=== PATIENT | female | born 1935 | race Caucasian/White ===

== ENCOUNTER 2018-04-11 11:54 | Outpatient (CLI) | payer MEDICARE, SELFPAY ==
[2018-04-11 13:33] LABS: CREATININE 0.87 mg/dL (0.55-1.02); Potassium 4.4 mmol/L (3.5-5.1)
== END 2018-04-11 12:14 ==
PROVIDERS: PCP Family Medicine; Visit Provider Family Medicine
DX: I10 Essential (primary) hypertension (principal); M25.552 Pain in left hip
CPT/HCPCS: 82565; 84132

== ENCOUNTER 2018-04-23 01:33 | Outpatient (CLI) | payer MEDICARE, SELFPAY ==
--- NOTE | 2018-04-23 09:44 | DI.RAD_ITS ---
SYMPTOMS/DIAGNOSIS: LT HIP PAIN, M25.552 LEFT HIP AND PELVIS: There is moderate left hip joint space narrowing, greatest medially and inferiorly. There is prominent periarticular spurring, greater from the femoral head. Moderate degenerative changes are seen of the right hip. IMPRESSION: Degenerative changes of both hips, left greater than right.
== END 2018-04-23 01:53 ==
PROVIDERS: PCP Family Medicine; Visit Provider Family Medicine
DX: M25.552 Pain in left hip (principal); M16.0 Bilateral primary osteoarthritis of hip
CPT/HCPCS: 73502

== ENCOUNTER 2020-01-01 03:34 | Outpatient (CLI) | payer MEDICARE, SELFPAY ==
[2020-01-01 10:54] LABS: CREATININE 0.85 mg/dL (0.55-1.02); Potassium 4.1 mmol/L (3.5-5.1)
== END 2020-01-01 03:54 ==
PROVIDERS: PCP Family Medicine; Visit Provider Family Medicine
DX: I10 Essential (primary) hypertension (principal)
CPT/HCPCS: 36415; 82565; 84132

== ENCOUNTER 2020-05-04 03:03 | Outpatient (CLI) | payer MEDICARE, SELFPAY ==
[2020-05-04 09:15] LABS: Calculated LDL 41 mg/dL (<100); Cholesterol 114 mg/dL (<200); HDL Cholesterol 60 mg/dL (40-60); Triglyceride 65 mg/dL (<150)
== END 2020-05-04 03:23 ==
PROVIDERS: PCP Family Medicine; Visit Provider Family Medicine
DX: E78.5 Hyperlipidemia, unspecified (principal)
CPT/HCPCS: 36415; 80061

== ENCOUNTER 2021-02-02 04:45 | Outpatient (CLI) | payer MEDICARE, SELFPAY ==
[2021-02-02 11:06] LABS: CREATININE 1.1 mg/dL (0.55-1.02); Calculated LDL 34 mg/dL (<100); Cholesterol 111 mg/dL (<200); Estimated GFR 47.43 (mL/min/1.73m2); HDL Cholesterol 58 mg/dL (40-60); Potassium 4.2 mmol/L (3.5-5.1); Triglyceride 95 mg/dL (<150)
== END 2021-02-02 04:46 | disposition home or self-care (01) ==
LOC: LBO 04:45
PROVIDERS: PCP Family Medicine; Visit Provider Family Medicine
DX: I10 Essential (primary) hypertension (principal); E78.5 Hyperlipidemia, unspecified; E11.65 Type 2 diabetes mellitus with hyperglycemia
CPT/HCPCS: 36415; 80061; 82565; 84132

== ENCOUNTER 2021-05-13 13:06 | Outpatient (CLI) | payer MEDICARE, SELFPAY ==
--- NOTE | 2021-05-13 13:00 | RT.EKG_ITS ---
APPROVED REPORT Exam: Resting ECG Reason for Exam: CAD Patient Location: O HR:75 bpm ECG Measurements Heart Rate 75 AXIS CO 189 P 61 QRSd 88 QRS -59 QT 392 T 58 QTc 438 Conclusion Sinus rhythm...normal P axis, V-rate 50- 99 Left anterior fascicular block...axis(240,-40),
== END 2021-05-13 13:07 | disposition home or self-care (01) ==
LOC: DI.CARD 13:06
PROVIDERS: PCP Family Medicine; Visit Provider Internal Medicine Cardiovascular Disease
DX: I25.10 Atherosclerotic heart disease of native coronary artery without angina pectoris (principal); I44.4 Left anterior fascicular block
CPT/HCPCS: 93010

== ENCOUNTER → 2021-05-13 13:55 | Outpatient (BNVA) | payer MEDICARE, SELFPAY | PROVIDERS: PCP Family Medicine; Referring Provider Family Medicine; Visit Provider Internal Medicine Cardiovascular Disease | DX: I25.10 Atherosclerotic heart disease of native coronary artery without angina pectoris (principal); Z95.1 Presence of aortocoronary bypass graft; Z95.2 Presence of prosthetic heart valve; I10 Essential (primary) hypertension; I77.810 Thoracic aortic ectasia | CPT/HCPCS: 93005; 99203 ==

== ENCOUNTER 2021-06-11 01:46 | Outpatient (CLI) | payer MEDICARE, SELFPAY ==
--- NOTE | 2021-06-11 10:32 | DI.US_ITS ---
APPROVED REPORT EXAM: Comprehensive 2D, Doppler, and color-flow Echocardiogram Patient Location: Out-Patient Highway Patrol Officer: Celia Serrato RDCS (AE) Indications: Bioprosthetic aortic valve replacement, CAD, Dilated ascending aorta Other Information Study Quality: Adequate Conclusion Normal left ventricular wall thickness and chamber size. Estimated ejection fraction is 60 to 65%. Wall motion is normal Normal right ventricular size and systolic function Both atria are moderately dilated There is a bioprosthetic aortic valve replacement there is mild to moderate aortic regurgitation. Th ere is mild aortic stenosis. Mean gradient is 19 mmHg, calculated aortic valve area 1.23 cm?? Mild mitral annular calcification. Mild mitral regurgitation Normal tricuspid valve with moderate regurgitation. Estimated right ventricular systolic pressure is 31 mmHg Dilated ascending aorta measuring 4.36 cm Wall motion Left Ventricle The left ventricle is normal size. The left ventricular systolic function is normal. The left ventric ular ejection fraction is within the normal range. There is normal left ventricular wall thickness. T here is normal LV segmental wall motion. There is no ventricular septal defect visualized. LVEF is 62 %. Right Ventricle The right ventricle is normal size. The right ventricular systolic function is normal. The RVSP is 30 .9mmHg. Atria Left atrium is moderately dilated. Right atrium is moderately dilated. The interatrial septum is inta ct with no evidence for an atrial septal defect. Aortic Valve Peak aortic valve gradient is 34.0mmHg. Highest mean aortic valve gradient is 19.4mmHg. Calculated AV A by the continuity equation is 1.15cm2. Mild to moderate aortic regurgitation. Bioprosthetic aortic valve is present. Mitral Valve Mild mitral annular calcification. No evidence of mitral valve stenosis. Mild mitral regurgitation. Tricuspid Valve The tricuspid valve is normal in structure. There is no tricuspid valve stenosis. Moderate tricuspid regurgitation. Pulmonic Valve The pulmonary valve is normal in structure. There is no pulmonic valvular stenosis. Trace pulmonic re gurgitation. Great Vessels The aortic root is normal in size. The ascending aorta is severely dilated.4.36 cm Aortic arch is nor mal in caliber. IVC is normal in size and collapses >50% with inspiration. Pericardium There is no pericardial effusion. 2D Dimensions IVSD d PLAX 0.92 cm F: 0.6-1.0 LV Vol A2C d MOD 113.2 mL LVPW d PLAX 0.92 cm F: 0.6 - 1.0 LV Vol A4C d MOD 98.0 mL LVID d PLAX 4.42 cm F: 3.8 - 5.2 LA vol/ BSA A2C s A-L 50.6 mL/m2 LVDs 2.85 cm F: 2.2 - 3.5 LA vol/ BSA A4C s A-L 24.7 mL/m2 Ao Root d 3.05 cm F: 2.7 - 3.3 LA Vol/ BSA Biplane s A-L 35.6 mL/m2 RA Area A4C 15.96 cm2 LA Area A4C s MOD 17.39 cm2 RA Vol/ BSA A4C s A-L 24.0 mL/m2 LA Area A2C s MOD 24.74 cm2 Ao Asc Diam d 4.36 cm F: 2.3 - 3.1 LV EF A4C MOD 63.4 % LV EF Teichholz 63.9 % LV EF A2C MOD 61.3 % LVEF (Thomas's) 62.69 % F: 54 - 74 LV EF Biplane MOD 62.7 % LV Volume 83.02 mL F: 46 - 106 SV 66.78 mL LV Volume Index 46.37 mL/m2 F: 29 - 61 SV Index 37.32 mL/m2 LV Vol Biplane MOD 106.5 mL FS 34.55 % M-Mode TAPSE 2.25 cm (M/F) >1.7 LV Diastology MV E' medial 0.061 (>0.07 m/s) E/A Ratio 1.1 LV E/e MED 11.60 (<14) MV E Vmax 0.71 (0.4-1.3 m/s) MV E' lateral 0.073 (>0.1 m/s) MV A Vmax 0.65 (0.4-1.3 m/s) LV E/e LAT 9.60 (<14) MV E/A Ratio 1.06 MV E/E' medial 11.65 MV E/E' lateral 9.63 Aortic Valve LVOT Area 2.89 cm2 AoV Area Vmax 1.15 cm2 LVOT Vmax 1.16 m/s AoV Area/ BSA (Vmax) 0.64 cm2/m2 LVOT Mean Odilon. 0.91 m/s ROBERTO Mean Odilon. 1.26 cm2 LVOT Peak Grad 5.3 mmHg ROBERTO Mean Odilon. Index 0.70 cm2/m2 LVOT Mean Grad 3.5 mmHg AR DT 1811 msec LVOT VTI 0.318 m AR PHT 525 msec LVOT Diam s 1.90 cm AoV Vmax 2.91 m/s Velocity Ratio 0.39 AoV Mean Odilon. 2.10 m/s AoV Peak Grad 34.0 mmHg LVOT SV 92.10 mL AoV Mean Grad 19.4 mmHg AoV VTI 0.747 m AoV Area VTI 1.23 cm2 AoV Area/ BSA (VTI) 0.69 cm/m2 Mitral Valve MV DT 203 (160-240 msec) MR Vmax 4.94 m/s MV PHT 59 msec MR VTI 1.762 m MV Area PHT 3.74 cm2 MR Peak Grad 97.5 mmHg MV VTI 0.358 m MR Mean Grad 70.8 mmHg MV VTI Annulus 0.385 m MV Area VTI 2.78 (4.0-6.0 cm2) Pulmonary Valve PV Vmax 0.97 (0.5-1.5 m/s) RVOT Peak Gr. 1.01 mmHg PV Peak Grad 3.8 mmHg RVOT Mean Gr. 0.55 mmHg PV Mean Grad 2.0 mmHg RVOT VTI 0.133 m PV VTI 0.188 m RVOT Vmax 0.50 m/s Tricuspid Valve TR Peak Grad 27.8 mmHg TR Vmax 2.64 m/s RA Pressure 3.00 mmHg RVSP (TR) 30.9 mmHg
== END 2021-06-11 02:06 ==
PROVIDERS: PCP Family Medicine; Visit Provider Internal Medicine Cardiovascular Disease
DX: I25.10 Atherosclerotic heart disease of native coronary artery without angina pectoris (principal); Z95.3 Presence of xenogenic heart valve; I77.810 Thoracic aortic ectasia; I08.1 Rheumatic disorders of both mitral and tricuspid valves; I35.1 Nonrheumatic aortic (valve) insufficiency
CPT/HCPCS: 93306

== ENCOUNTER → 2021-06-18 07:54 | Outpatient (BNVA) | payer MEDICARE, SELFPAY | PROVIDERS: PCP Family Medicine; Referring Provider Family Medicine; Visit Provider Internal Medicine Cardiovascular Disease | DX: I77.810 Thoracic aortic ectasia (principal); Z95.3 Presence of xenogenic heart valve; Z95.1 Presence of aortocoronary bypass graft; I25.10 Atherosclerotic heart disease of native coronary artery without angina pectoris | CPT/HCPCS: 99212; 99442 ==

== ENCOUNTER → 2021-10-15 00:54 | Outpatient (CLI) | payer MEDICARE, SELFPAY ==
--- NOTE | 2021-10-15 10:44 | DI.RAD_ITS ---
Exam(s) XR HIP LT COMPLETE AP PELVIS EXAM: XR HIP LT COMPLETE AP PELVIS CLINICAL HISTORY: left hip pain, CHRONIC, M25.552, G89.29. TECHNIQUE: 2D digital imaging was performed of the left hip. Two views were obtained. AP pelvis an d lateral left hip views were obtained. COMPARISON: CR XR hip LT complete AP pelvis from 04/23/2018 FINDINGS: BONES: No acute fracture is present. No bony destructive lesion is seen. JOINTS: No dislocation present. There are marked degenerative changes seen in the left hip with joint space narrowing, subchondral sclerosis and cysts and periarticular spurring. Moderately severe dege nerative changes are seen in the right hip. SOFT TISSUE: Atherosclerosis is present. IMPRESSION: Marked osteoarthritis of the left hip. Unremarkable radiographs of the pelvis DATA REPOSITORY: RADIATION DOSE DELIVERED:
== END ==
PROVIDERS: PCP Family Medicine; Visit Provider Family Medicine
DX: M25.552 Pain in left hip (principal); G89.29 Other chronic pain; M16.12 Unilateral primary osteoarthritis, left hip
CPT/HCPCS: 73502

== ENCOUNTER → 2021-11-15 10:56 | Outpatient (BNVA) | payer MEDICARE, SELFPAY | PROVIDERS: PCP Family Medicine; Referring Provider Family Medicine; Visit Provider Physician Assistant Surgical | DX: M16.12 Unilateral primary osteoarthritis, left hip (principal) | CPT/HCPCS: 99214 ==

== ENCOUNTER 2022-03-07 02:59 | Outpatient (CLI) | payer MEDICARE, SELFPAY ==
[2022-03-07 15:42] LABS: MCHC 33.3 % (32.0-36.0); MCV 96 fL (80-95); MPV 11.7 fL (8.0-11.0); Platelet Count 151 10^3/uL (130-400); RBC 4.06 10^6/uL (3.93-5.22); RDW 13.7 % (11.7-14.6); RDW-SD 48.1 fL; WBC 8.28 10^3/uL (4.4-10.8)
[2022-03-07 16:18] LABS: Anion Gap 6.4 mmol/L (3-11); BUN 22 mg/dL (7-18); CO2 29.6 mmol/L (21.0-32.0); CREATININE 1.1 mg/dL (0.55-1.02); Calcium 9.2 mg/dL (8.5-10.1); Chloride 104 mmol/L (98-107); Estimated GFR 49.55 (mL/min/1.73m2); Glucose 107 mg/dL (74-106); Potassium 3.7 mmol/L (3.5-5.1); Sodium 140 mmol/L (136-145)
== END 2022-03-07 03:00 | disposition home or self-care (01) ==
LOC: LBO 02:59
PROVIDERS: PCP Family Medicine; Visit Provider Student in an Organized Health Care Education/Training Program
DX: M25.552 Pain in left hip (principal); M16.12 Unilateral primary osteoarthritis, left hip; Z01.818 Encounter for other preprocedural examination; Z01.812 Encounter for preprocedural laboratory examination
CPT/HCPCS: 36415; 80048; 85027; 72170

== ENCOUNTER 2022-03-07 14:23 | Outpatient (CLI) | payer MEDICARE, SELFPAY ==
--- NOTE | 2022-03-07 13:45 | DI.RAD_ITS ---
Exam(s) XR PELVIS AP EXAM: XR PELVIS AP CLINICAL HISTORY: s/p left BENNIE. TECHNIQUE: 2D digital imaging was performed. One view COMPARISON: CR XR HIP LT COMPLETE AP PELVIS from 10/15/2021 FINDINGS: BONES: No acute fracture is present. No bony destructive lesion is seen. JOINTS: No dislocation present. Moderate bilateral joint space narrowing is present, greater on the l eft.. Periarticular spurring, left greater than right. SOFT TISSUE: Normal. IMPRESSION: Moderate to severe degenerative changes of the left hip. [id number] degenerative changes of th e right hip. Stable from prior. DATA REPOSITORY: RADIATION DOSE DELIVERED:
== END 2022-03-07 14:24 | disposition home or self-care (01) ==
LOC: DIORS 14:24
PROVIDERS: PCP Family Medicine; Referring Provider Family Medicine; Visit Provider Physician Assistant
DX: M16.12 Unilateral primary osteoarthritis, left hip (principal); I77.810 Thoracic aortic ectasia; Z01.818 Encounter for other preprocedural examination
CPT/HCPCS: 72170

== ENCOUNTER 2022-03-15 05:52 | Day surgery (SDC) | payer MEDICARE, SELFPAY ==
[2022-03-15] VITALS (9 sets, daily range): BP systolic 93–135; BP diastolic 43–83; PULSE 46–86; RESP 11–18; TEMP 35.9–36.6; O2SAT 94–98; BMI 22.1
[2022-03-15] MEDS: Acetaminophen 500 MG TAB 1000 MG PO (06:37)
[2022-03-15] MEDS: Celecoxib 200 MG CAP 400 MG PO (06:37)
--- NOTE | 2022-03-15 07:08 | W.ANESPRE ---
General Info Date of Service Date Performed: 03/15/22 Height: 5 ft 6.25 in Weight: 62.6 kg Body Mass Index (BMI): 22.1 Surgical Procedure: Operation Date: 03/15/22 07:50 Proposed Procedure Side Surgeon p Hip Total Hip Anterior Left Serafin Davidson MD Meds Allergies and Home Medications Allergies Allergy/AdvReac Type Severity Reaction Status Date / Time No Known Allergies Allergy Verified 03/15/22 06:16 Home Medication Medication Instructions Recorded latanoprost 0.005 % eye drops 1 drp OU QPM ##1 08/20/12 (Xalatan) dorzolamide 2 % eye drops 1 drp OU BID 09/22/15 cholecalciferol (vitamin D3) 25 1,000 unit PO DAILY 04/05/17 mcg (1,000 unit) tablet losartan 100 1 tab PO DAILY 05/13/21 mg-hydrochlorothiazide 12.5 mg tablet carvedilol 6.25 mg tablet 6.25 mg PO BID #180 tabs 07/02/21 atorvastatin 40 mg tablet 40 mg PO DAILY #90 tab-caps 03/04/22 acetaminophen 500 mg tablet 500 mg PO Q6H PRN pain #60 tabs 03/15/22 aspirin 81 mg tablet,delayed 81 mg PO BID 30 days #60 tabs 03/15/22 release celecoxib 200 mg capsule (Celebrex) 200 mg PO BID #30 caps 03/15/22 dexamethasone 4 mg tablet 4 mg PO DAILY #2 tabs 03/15/22 docusate sodium 100 mg capsule 100 mg PO BID #30 caps 03/15/22 (Colace) oxycodone 5 mg tablet 5 mg PO Q6H PRN severe 03/15/22 post-operative pain #12 tabs pantoprazole 40 mg tablet,delayed 40 mg PO DAILY 14 days #14 tabs 03/15/22 release Current Visit Medications: Current Medications Generic Name Dose Route Start Last Admin Trade Name Freq PRN Reason Stop Dose Admin Acetaminophen 1,000 mg 03/15/22 06:00 03/15/22 06:37 Acetaminophen 500 Mg Tab PO 03/15/22 16:00 1,000 mg PREOP STACEY Administration Celecoxib 400 mg 03/15/22 06:00 03/15/22 06:37 Celecoxib 200 Mg Cap PO 03/15/22 16:00 400 mg PREOP STACEY Administration Tranexamic Acid 1,000 mg/ 60 mls @ 360 mls/hr 03/15/22 06:00 Sodium Chloride IV 03/15/22 16:00 PREOP STACEY Ringer's Solution 1,000 mls @ 80 mls/hr 03/15/22 06:00 IV 04/13/22 23:59 INFUSION STACEY Cefazolin Sodium/Dextrose 2 gm in 50 mls @ 100 mls/hr 03/15/22 06:00 Ancef Duplex IVPB 03/15/22 16:00 PREOP STACEY IV Miscellaneous Supplies 1 each 03/15/22 06:00 Iv Access IV 04/13/22 23:59 DIRECTED STACEY Sodium Chloride 0 ml 03/15/22 06:00 Normal Saline Flush 10 Ml Syr IV 04/13/22 23:59 PRN PRN Sodium Chloride 0 ml 03/15/22 06:00 Normal Saline 10 Ml Vial IJ 04/13/22 23:59 DIRECTED PRN Sterile Water 0 ml 03/15/22 06:00 Water,Injection,Sterile 10 Ml Vial IJ 04/13/22 23:59 DIRECTED PRN PFSH Active Problems Active Problems: Problem Status Onset Code Osteoarthritis of left hip M16.12 Chronic left hip pain M25.552, G89.29 Ascending aorta dilation I77.810 H/O heart valve replacement with bioprosthetic valve Z95.3 Left leg pain M79.605 Left groin pain R10.32 Right arm pain M79.601 Left leg pain M79.605 Advanced care planning/counseling discussion Z71.89 Aortic valve stenosis I35.0 Abnormal mammography 04/27/07 R92.8 PFO (patent foramen ovale) Q21.1 Aortic valve replaced 07/17/13 Z95.2 Transient ischemic attack 07/11/12 G45.9 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 loss, bilateral 08/11/16 H90.3 Primary malignant neoplasm of skin C44.90 Glaucoma 07/16/12 H40.9 Essential hypertension 04/12/13 I10 Constipation K59.00 Cholelithiasis without obstruction K80.20 Atrophic vaginitis N95.2 Atherosclerosis of [place] coronary artery 01/09/13 I25.10 Anxiety F41.9 Surgical History Surgical History Cholecystectomy (~1995) Coronary Artery Bypass Gaft (CABG) SINGLE VESSEL History of heart valve replacement Aortic valve 2011 Status post cardiac catheterization Tobacco Smoking/Tobacco Use Status: Never Passive smoking exposure: No Alcohol Alcohol Intake: current Alcohol intake frequency: holidays/special occasions only Alcohol type: wine Substance Use Substance use: Never Substance use type: does not use Vital Signs and Lab Results Vital Signs Most Recent Vital Signs in EMR: Most Recent Vital Signs Temp Pulse Resp BP Pulse Ox 36.6 C 86 15 126/74 94 03/15/22 06:29 03/15/22 06:29 03/15/22 06:29 03/15/22 06:29 03/15/22 06:29 Lab Results Blood Type / Crossmatch: No Data to Display Complete Blood Count: White Blood Count 8.28 10^3/uL (4.4-10.8) 03/07/22 15:02 Red Blood Count 4.06 10^6/uL (3.93-5.22) 03/07/22 15:02 Hemoglobin 13.0 g/dL (11.2-15.7) 03/07/22 15:02 Hematocrit 39.0 % (36.0-46.0) 03/07/22 15:02 Platelet Count 151 10^3/uL (130-400) 03/07/22 15:02 Complete Metabolic Panel: Sodium 140 mmol/L (136-145) 03/07/22 15:02 Potassium 3.7 mmol/L (3.5-5.1) 03/07/22 15:02 Chloride 104 mmol/L (98-107) 03/07/22 15:02 Carbon Dioxide 29.6 mmol/L (21.0-32.0) 03/07/22 15:02 BUN 22 mg/dL (7-18) H 03/07/22 15:02 Creatinine 1.1 mg/dL (0.55-1.02) H 03/07/22 15:02 Est GFR (CKD-EPI 2020) 49.55 (mL/min/1.73m2) 03/07/22 15:02 Calcium 9.2 mg/dL (8.5-10.1) 03/07/22 15:02 Glucose 107 mg/dL (74-106) H 03/07/22 15:02 Liver Function Panel: No Data to Display Coagulation Panel: No Data to Display Cardiac Panel: No Data to Display Arterial Blood Gas: No Data to Display Venous Blood Gas: No Data to Display Pancreas Panel: No Data to Display Thyroid Panel: No Data to Display Infectious Disease: No Data to Display Blood Cultures: No Data to Display Toxicology Panel: No Data to Display Imaging and Studies Imaging and Studies Study information below may be from another EMR and interpreted by another provider. Please see original notes in EMR for more complete details. EKG Summary: Conclusion Sinus rhythm...normal P axis, V-rate 50- 99 Left anterior fascicular block...axis(240,-40), 05/13/21 Echocardiogram Summary: Conclusion Normal left ventricular wall thickness and chamber size. Estimated ejection fraction is 60 to 65%. Wall motion is normal Normal right ventricular size and systolic function Both atria are moderately dilated There is a bioprosthetic aortic valve replacement there is mild to moderate aortic regurgitation. There is mild aortic stenosis. Mean gradient is 19 mmHg, calculated aortic valve area 1.23 cm?? Mild mitral annular calcification. Mild mitral regurgitation Normal tricuspid valve with moderate regurgitation. Estimated right ventricular systolic pressure is 31 mmHg Dilated ascending aorta measuring 4.36 cm 06/11/21 Anesthesia Assessment and Plan Anesthesia History Personal History: No History of Anesthesia Complications Family History: No Family History of Anesthesia Complications Exercise Tolerance Exercise Tolerance: Metabolic Equivalents>4 Pertinent Negatives Pertinent Negatives: No Major Cardiovascular Symptoms or Complaints, No Major Pulmonary Symptoms or Complaints, No History of CVA/TIA and Other (Clears throat often) Cardiac & Pulmonary Exam Cardiac Exam: Normal S1/S2 Heart Sounds Pulmonary Exam: Clear Bilateral Breath Sounds Implantable Cardiac Device Does patient have a Pacemaker or an ICD?: No Airway Exam Known Difficult Airway: No Mallampati Class: 2 Mouth Opening: Normal (> 3cm) Thyromental Distance: Greater than 3 cm Neck Range of Motion: Limited ROM (Unable to tuen head to the right) Neck Circumference: Normal Teeth Condition: Normal Dentition ASA Classification ASA Score: ASA 2 Emergency Case?: No NPO Status NPO Status: NPO Clears >2 hours, Solids >8 hours Anesthesia Plan Resuscitation Status: Full Code Anesthesia Technique: Spinal Anesthesia Airway Planned: Natural Airway Monitors Used: Standard Monitors
[2022-03-15] MEDS: Lactated Ringers 1,000 ML 80 ML IV (07:15)
--- NOTE | 2022-03-15 07:20 | DSE_ITS ---
DS: Diagnosis Discharge Diagnosis (1) Osteoarthritis of left hip: Status: Acute Discharge Plan Disposition Patient Disposition: HOME Condition: Good Discharge Details Reason For Visit: Left hip DJD Attending Provider: Serafin Davidson Primary Care Provider: Americo Mills Home Meds and New Rx's Prescriptions: New aspirin 81 mg tablet,delayed release (DR/EC) 81 mg PO BID 30 Days Qty: 60 0RF acetaminophen 500 mg tablet 500 mg PO Q6H PRN (Reason: pain) Qty: 60 2RF pantoprazole 40 mg tablet,delayed release (DR/EC) 40 mg PO DAILY 14 Days Qty: 14 0RF docusate sodium [Colace] 100 mg capsule 100 mg PO BID Qty: 30 0RF oxycodone 5 mg tablet 5 mg PO Q6H PRN (Reason: severe post-operative pain) Qty: 12 0RF Rx Instructions: Take one tablet up to every 6 hours as needed for severe pain dexamethasone 4 mg tablet 4 mg PO DAILY Qty: 2 0RF Rx Instructions: Take one tablet once daily for two days ibuprofen 600 mg tablet 600 mg PO TID PRN (Reason: pain) Qty: 60 0RF Continued losartan-hydrochlorothiazide 100-12.5 mg tablet 1 tab PO DAILY Rx Instructions: fill only when patient requests (she will use up her losartan with addition of hctz first) latanoprost [Xalatan] 2.5 ML drops 1 drp OU QPM Qty: 1 Rx Instructions: 0.005% dorzolamide 10 ML drops 1 drp OU BID cholecalciferol (vitamin D3) 1,000 UNIT tablet 1,000 unit PO DAILY carvedilol 6.25 mg tablet 6.25 mg PO BID Qty: 180 3RF Rx Instructions: must administer with a meal/food atorvastatin 40 mg tablet 40 mg PO DAILY Qty: 90 4RF Discontinued aspirin [Aspirin Low-Strength] 81 MG tablet,chewable 81 mg PO DAILY Discharge Instructions Additional Instructions: Total Hip Discharge Instructions Activity: The most important activity is to walk. You should try to take short walks a few times a day. You have no restrictions on movement or positioning, but do not try to force what you do. You will find some stiffness and weakness with hip flexion (lifting your knee). Do not try to strengthen this too early, continue to practice walking and stairs and this will come. - Outpatient physical therapy can be helpful to help return you to a normal gait and improve your flexibility and strength. This can start around 2 weeks. For some patients, it?s not necessary. Usually this is determined at the time of discharge or at the first post-operative visit. - You should wear the FLY hose on both legs for 2 weeks. Dressing: Keep the surgical dressing in place for at least one week. After the first week it may be removed and replace with light gauze and tape or nothing. It may get wet after 3 days but avoid soaking the dressing. If it gets wet, just lightly pat dry. It is important to always keep some gauze between skin folds, especially when you are sitting. Spend some time with the wound exposed when you are lying flat as the incision does wrinkle onto itself. Medications: - You should take Tylenol and an anti-inflammatory Ibuprofen as your primary pain control medications. - You have been prescribed a stronger pain medication Oxycodone for breakthrough pain, take as needed as prescribed. - You have also been prescribed a stomach acid reduction agent Pantoprozole to help reduce stomach acid and reflux. - You have also been prescribed Decadron to help with post-operative nausea and pain. You will take this for two days starting tomorrow. - You will be taking Aspirin 81mg twice a day for DVT prevention unless instructed otherwise. - If you have constipation you should take Colace (which has been prescribed) or Miralax (which is available [id number]). It takes most people 3-4 days to have a bowel movement. Follow-up: 2 weeks If you have any acute concerns or questions, please do not hesitate to contact the office at [phone]. You may contact Dr. Davidson with any questions after hours through the hospital at [phone] or on his cell phone at [phone]. Stand Alone Forms: Anesthesia Discharge Inst., Brea.Nerve Block Instructions, Pranay Whipple ([facility]) Referrals: Serafin Davidson MD [ [facility] ST[facility]FF PHYSICIAN] - 03/28/22 10:30 am Equipment/Supplies: Walker Activity:: Activity as Tolerated Remove Dressings/Wound Care:: Do Not Remove Shower/Bathe:: Cover Diet:: As Tolerated Discharge Orders Discharge Orders: Discharge Order (Routine); Ordered 03/15/22 Ordered By: Serafin Davidson DS: Summary Time Spent with Patient providing and/or coordinating discharge services: Less than 30 minutes Status at Discharge Functional status at discharge: uses cane/walker Overall status at discharge: patient is progressing back to baseline Mental Status: mental status grossly normal Speech and Movement: speech and movement normal Mood: congruent mood Affect: normal affect Exam Psych Mental Status: mental status grossly normal Speech and Movement: speech and movement normal Mood: congruent mood Affect: normal affect DS: Data Vitals/I&O Vitals and I&O: Vital Signs Temperature 97.9 F 03/15/22 06:29 Pulse 86 03/15/22 06:29 Pulse Rhythm Regular 03/15/22 06:29 Respiratory Rate 15 03/15/22 06:29 Respiratory Depth Normal 03/15/22 06:29 Blood Pressure 126/74 03/15/22 06:29 Pulse Oximetry 94 03/15/22 06:29 Oxygen Delivery Method Room Air 03/15/22 06:29 Oxygen Flow Rate 0 03/15/22 06:29 Pain Level 0 03/15/22 06:29 Intake & Output 03/14/22 03/14/22 03/15/22 11:59 23:59 11:59 Weight 141 lb 15.996 oz 138 lb 0.15 oz PFSH All Active Problems Osteoarthritis of left hip (Acute) Chronic left hip pain (Acute) Ascending aorta dilation (Acute) H/O heart valve replacement with bioprosthetic valve (Acute) Left leg pain (Acute) Left groin pain (Acute) Right arm pain (Acute) Left leg pain (Acute) Advanced care planning/counseling discussion (Acute) Aortic valve stenosis (Acute) Abnormal mammography (Acute 04/27/07) PFO (patent foramen ovale) (Acute) 12/27/18 [facility] [place] Aortic valve replaced (Acute 07/17/13) 03/08-tissue valve Transient ischemic attack (Acute 07/11/12) 01/06 07/12 Tietze's disease (Acute) Sensorineural hearing loss, 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) Denies 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 Glaucoma (Acute 07/16/12) Essential hypertension (Acute 04/12/13) check some BPs at home Constipation (Acute) Cholelithiasis without obstruction (Acute) Atrophic vaginitis (Acute) Atherosclerosis of [place] coronary artery (Acute 01/09/13) CABG TO SINGLE VESSEL-03/08 Anxiety (Acute) Surgical History Cholecystectomy (~1995) Coronary Artery Bypass Gaft (CABG) SINGLE VESSEL History of heart valve replacement Aortic valve 2011 Status post cardiac catheterization Family History Mother , age 73 Pancreatic cancer Father , age 96 Stroke Hypertension Heart disease Maternal Grandfather , age 64 Heart disease Paternal Grandfather , age 69 Parkinson disease Paternal Grandmother , age 80 Heart disease Maternal Grandmother , age 76 No problems noted. Sister Dementia Hypertension Brother Hypertension Brother Hypertension Brother Hypertension Son No problems noted. Son No problems noted. Son No problems noted. Social History Smoking/Tobacco Use Status: Never Smoking risk assessment performed?: Yes Alcohol Intake: current Alcohol Intake frequency: holidays/special occasions only Alcohol type: wine Drug use: Never Substance use type: does not use Caregiver/Support person: No Household members: spouse Do you need help understanding health information?: Rarely Pets and animals: No Sexually active: No Do you think of yourself as: straight/heterosexual Current gender identity: female What is your relationship status?: How often do you talk on the phone with friends or family?: three or more times per week How often do you get together with friends or relatives?: three or more times per week Do you belong to any clubs or organized social groups?: no Panel score (0-1 are the most socially isolated patients): 2 Duration: < 15 minutes/day Frequency: daily Stephanie/Confucianism: Mu-Ism Special stephanie needs: No Seatbelt use: always Drive intox or ride w/intox miniature train driver: No Do you feel safe at home: Yes Do you feel safe in your relationship?: Yes Victim of physical abuse: No Victim of emotional abuse: No Victim of sexual abuse: No Would you like helpful sources: No
[2022-03-15] MEDS: ceFAZolin 2 GM/50 ML BAG IVPB (07:40)
--- NOTE | 2022-03-15 08:52 | DI.RAD_ITS ---
Exam(s) XR HIP LT IN OR EXAM: XR HIP LT IN OR CLINICAL HISTORY: total hip TECHNIQUE: 2D and realtime digital imaging was performed. CONTRAST MATERIAL: Refer to procedure report. COMPARISON: CR XR PELVIS AP from 03/07/2022 FINDINGS: Fluoroscopy was provided for Dr. Davidson during the performance of a placement of a left total hip arthroplasty. Please refer to the procedure report for complete details. Ka,r=2.8 mGy IMPRESSION: RADIATION DOSE DELIVERED:
--- NOTE | 2022-03-15 09:09 | ROE_ITS ---
Date of service: 03/15/22 Time of Service: 09:09 Operative Note Operative Note DATE OF PROCEDURE: 03/15/22 PRE-OP DIAGNOSIS: Left Hip Osteoarthritis POST-OP DIAGNOSIS: same PROCEDURE: Left Anterior Total Hip Arthroplasty with Intraoperative Navigation SURGEON: Serafin Davidson BUILDING ARCHITECT: Sloane Buenrostro ANESTHESIA TYPE: Spinal Refer to Anesthesia Record ESTIMATED BLOOD LOSS: 100 PATHOLOGY: none sent TOURNIQUET TIME: 0 COMPLICATIONS: None Patient was transported to: PACU Patient's condition: stable Implants: 1. Depuy [place] Acetabular Component, 56mm 2. Depuy Acetabular Liner, [id number] 3. Depuy Corail Standard Collared Femoral Stem, Size 13 4. Depuy Altrx Ceramic Femoral Head, Size 36+5mm Indications: I have seen Isabel in clinic for symptoms of hip arthritis, confirmed with radiographic findings. She has exhausted nonoperative methods and was having significant limitations in daily function and desired better function and less pain. I discussed the technical details of a hip replacement. I explained the risks of the procedure to include, but not limited to, bleeding, infection, pain, stiffness, fracture, damage to nerves and vessels, damage to muscles and tendons, loosening, instability, leg length inequality, need for repeat pro cedure, blood clot and cardiopulmonary demise. Despite these risks, Isabel elected to proceed. Findings: There was significant signs of arthritis throughout the hip with notable chondromalacia of the femoral head and superior acetabulum. Procedure Description: Isabel was greeted in the preoperative holding area where the correct side was identified and marked. The consent was reviewed with the patient and signed. The history and physical was updated. All questions were answered. She was taken back to the operating room. A spinal anesthestic was then administered. The feet were wrapped with cast padding and Coban and then placed into the boot liners and then into the boots. Care was taken to protect the skin and make sure the heels were fully down and the boots were stable. The patient was then positioned onto the HANA table. Both legs were held in a neutral position. SCDs were applied. The patient was then slid down onto a peroneal post. Prophylactic antibiotics in the form of Cefazolin were administered. 1g of Tranxemic Acid was given intravenously within 30 minutes of incision. The left leg was then prepped with Chloraprep and draped in a standard fashion. A second prep with Chloraprep was performed prior to placement of a shower-curtain type drape with Iodine impregnated skin protection. A timeout to confirm correct identity, side and site, procedure, allergies, anesthesia, and medical concerns was performed. An obliquely oriented incision was made starting lateral to the ASIS and running distal over the Tensor Fascia Alhtea (TFL) muscle belly toward the fibular head, approximately 10cm. The skin and soft tissue was dissected sharply, through Berry?s fascia, and to the fascia of the TFL. With the fascia and superior border of the IT band identified, the fascia was incised with a new knife just above any perforators from the IT band. The TFL muscle belly was bluntly dissected away from the fascia and moved laterally. The fat between TFL and rectus was identified to ensure the dissection was not within the TFL. Blunt dissection created space between abductors and the capsule and retractor was placed over the lateral femoral neck. The fibers of the rectus femoris tendon were identified and these were freed from the anterior capsule. A second cobra retractor was placed around the medial femoral neck. The TFL was further retracted laterally to show the deep fascia. Careful dissection through this layer identified three main crossing vessels of the lateral femoral circumflex. These were cauterized in multiple locations and then cut without any noticeable bleeding. The TFL was further released bluntly from the deep fascia to expose anterior hip capsule and fat The Aurelio orthopaedic retractor was then placed beneath the TFL and against sartorius and medial soft tissues to protect and retract the soft tissues. A T-capsulotomy was then performed starting at the superior lateral acetabulum and moving distally to the intertrochanteric ridge. These capsular flaps were tagged with a No. 1 Ethibond and elevated from within. The capsular flaps were released to the shoulder of the lateral neck and to the lesser trochanter to give excellent visualization of the proximal femur. A neck osteotomy was performed using an oscillating saw based on preoperative templates. This cut started in the shoulder and of the lateral neck and exited medially. The saw was at all times directed medially to avoid injury to the greater trochanter. Gross traction was applied to the leg and the osteotomy opened. The femoral head was removed with a corkscrew, making sure to protect the TFL on its exit. Traction was released after head removal. This was measured on the back table to determine the starting reamer size. Portions of the rectus obscuring visualization were minimally elevated off the superior acetabulum. An anterior retractor was placed over the anterior wall between capsule and labrum and attached to the Gripper retraction system. The femur was rotated to 90 degrees and medial capsule was fully released until the lesser trochanter was palpable and visible; the femur was returned to 30 degrees. A posterior retractor was placed similarly between capsule and labrum. This provided excellent visualization. The contents of the cotyloid fossa were removed with electrocautery and the labrum was removed with a knife. There was a notable floor osteophyte. There was significant chondromalacia of the superior acetabulum. Acetabular reaming began with a 52mm reamer. This first reaming was directed anterior to posterior and medial to get down to the true floor. This was inspected and reamed until the true floor was reached. The anterior retractor was then released and entry and exit was provided by traction on the capsular flaps. I then reamed sequentially up to a 56mm reamer where good fit was obta ined. The larger reamers were oriented based on anatomical reference of the anterior and lateral soto to ensure proper abduction and anteversion. Positioning and size was confirmed with the fluoroscopy. A 56mm Depuy [place] acetabular component was selected. The acetabulum was reamed around the periphery with the selected acetabular size to prevent a rim fit. The deep tissues were irrigated. The acetabular component was then impacted in a position of about 40-45 degrees of abduction and 15-20 degrees of anteversion, using the patient?s anatomy as the ultimate landmark. Fluoroscopy was used to confirm this. There was excellent tram driver of the acetabular component and the inserting handle was removed. The acetabular liner, Depuy [id number] polyethylene liner, was inserted and lined up with the tines of the acetabular component. There was no soft tissue interposition. The liner was then impacted into position and confirmed to be well-seated. A portion of the armando-articular cocktail was then injected around the acetabulum into the capsule and periosteum. This cocktail consisted of 123mg of Ropivacaine, 0.25mg of Epinephrine, 0.04mg of Clonidine, and 15mg of Ketorolac, diluted to 50cc. The leg was rotated to 120 degrees. Any remaining medial capsule was released until the lesser trochanter was easily palpable. A retractor was placed medially. The lateral capsule was further released into the shoulder to allow access to the greater trochanter. A Meyer retractor was placed over the greater trochanter which allowed the trochanter to flip in front of the capsule for excellent exposure. The leg was brought down into maximal extension and 20 degrees of adduction while ensuring there was no impingement on the acetabulum. Any remnant capsule within the trochanter was released. Piriformis and obturator externis were identified and protected. There was excellent access to the proximal femur. The lateral neck remnant was removed with a rongeur. A blunt canal probe was used to identify the canal and trajectory for later broaching. A box osteotome initiated the broach course. A small curved rasp and a curved curette were used to work laterally. Broaching then began with a size 8 Corail broach. This was inserted manually around the trochanter and into the canal before mallet blows. The broach was seated to a few millimeters below the cut level based on the neck cut and the preoperative template. Sequential broaching was continued with the [employer] pneumatic broaching device until a tight fit was obtained with good rotational control of the femur. A trial standard neck was inserted along with a +5 trial head. The leg was brought out of extension and adduction and then reduced with traction and internal rotation. The leg was stable anteriorly in a position of 30 degrees of extension and 90 degrees of external rotation. Fluoroscopy was used to ensure there was no fracture and the stem was seated well. Leg lengths were checked with an AP pelvis and pelvic reference points. [employer] navigation system was used to confirm appropriate positioning and leg length and offset. This accurately recreated the offset but over-lengthened by about 3mm. Once content with the desired offset and leg lengths, the leg was brought back into extension, external rotation and adduction. The broach was advanced another 3mm by going back to a size 12 and then to the 13. The periosteum and surrounding tissue was injected with remaining portion of the armando-articular cocktail. The proximal femur was irrigated as well as the deep tissues. The Depuy Corail standard collared stem, size 13, was then manually inserted into the proximal femur making sure to control rotation. It was then malleted into position with light blows, giving breaks to allow bone expansion and decrease risk of fracture. The selected Depuy Altrx Ceramic Head, size 36+5mm, was then placed onto the clean and dry trunnion and secured with impaction onto the tapered fit. The leg was brought back out of extension and adduction and reduced with traction and internal rotation. Stability was confirmed with no shuck at 90 degrees of external rotation and 30 degrees of extension. No impingement through range of motion arc. Final x-ray images were obtained with fluoroscopy to confirm adequate positioning and no intraoperative fracture. The deep tissues were thoroughly irrigated with Surgiphor, betadine solution. This was allowed to sit in the wound for 3 minutes before being thoroughly irrigated out with normal saline. The capsule was then reapproximated with the previously placed Ethibond sutures. The TFL fascia was finally closed with a No. 2 Stratafix, barbed suture. Deep tissues were then reapproximated with 0 Vicryl and a running 2-0 Vicryl. The skin was closed with a running 4-0 Monocryl in a subcuticular fashion. This was reinforced with skin glue. A Mepilex silver dressing was applied. At the end of the case, all counts were correct. Isabel was transferred to the hospital bed without difficulty and suffering no apparent complication. Isabel has a good prognosis. Physical therapy will start today and without restrictions, weight-bearing as tolerated. Aspirin 81mg BID will be used for DVT prophylaxis.
--- NOTE | 2022-03-15 11:13 | IN_ITS ---
Date of service: 03/15/22 Time of Service: 11:13 PT Notes Visit Reasons: Left hip DJD Physical Therapy Day Surgery Initial Evaluation Date: 03/15/2022 Referring Doctor: OLIVER Stephenson PT Orders: PT CONSULT: S/P ortho surgery Precautions: WBAT on the L LE with AD. Patient Profile/Admitting Diagnosis: Isabel Truong an 86-year-old female with degenerative joint disease of the left hip and is left anterior total hip arthroplasty on postoperative day 0. PMHX: Surgical History?(Updated 03/07/22 @ 14:22 by Sloane Buenrostro) Cholecystectomy (~1995) Coronary Artery Bypass Gaft (CABG) SINGLE VESSELHistory of heart valve replacement Aortic valve 2010Status post cardiac catheterization Social History/Home Situation: Lives with in a one-level home with 2-3 steps to enter with no rails. Independent with all ADLs without AD prior to surgery. Equipment Owned/DME: None Subjective: Denies headache, chest pain, and lightheadedness throughout. Reports pain at 4- 5/10 pain in L hip, Nurse Amrita aware and managing. Objective: General Observation: Supine in bed. TEDS in B legs. Reports 4-5/10 pain in B LE. Mental Status: A and O x 4 Pain: 4-5/10 pin in the L hip hip and thigh ROM: Right Lower Extremity: Hip flexion WFL. Hip abduction WFL. Knee flexion WFL. Ankle dorsiflexion WFL. Ankle plantarflexion WFL. Left Lower Extremity: Hip flexion WFL. Hip abduction WFL. Knee flexion WFL. Ankle dorsiflexion WFL. Ankle plantarflexion WFL. Strength: Right Lower Extremity: Hip flexors 5/5. Hip abductors 5/5. Knee flexors 5/5. Knee extensors 5/5. Ankle dorsiflexors 5/5. Ankle plantarflexors 5/5. Left Lower Extremity:Hip flexors 4/5. Hip abductors 4/5. Knee flexors 5/5. Knee extensors 4/5. Ankle dorsiflexors 5/5. Ankle plantarflexors 5/5. Sensation: Intact as to pain and pressure in B LE Bed Mobility/Transfers: Supine to sit stand by assist Sit to stand contcat guard assist Stand to sit stand by assist Bed to chair contact guard assist Gait: 150 feet of level surface ambulation using FWW with step-through heel-toe gait pattern requiring stand by assist. 4-5/10 pain report through the L hip and thigh. Nurse Amrita gave patient Oxycodone to get ahead of pain level. Minimal verbal cueing given for correct tehnique. Stairs: Up and down 3 x 4-inch steps and 2 x 6-inch steps while holding onto B rails with step=to gait pattern with no increase in pain report. Minimal verbal cueing given for correct tehnique. Balance: Static Sitting: Normal Dynamic Sitting: Normal Static Standing: Fair Dynamic Standing: Fair Special Tests: Mobility Limitations Standardized Measure [facility] AM-PAC 6 clicks Basic Mobility Inpatient Short Form: Raw Score: 21 CMS Score: 29% deficit patient requires the use of a front wheeled walker to maximize independence and reduce fall risk. Informed Consent/Education: Patient instructed in purpose of PT consult. Packet containing exercise protocol has been given to patient. Education and training on initial set of exercises that can be done at home have been completed with patient. Assessment: Tolerated mobility tasks well despite pain report. Patient requires the use of a front-wheeled walker to maximize independence and reduce fall risk. Patient presents with clinical signs and symptoms consistent with current/admitting diagnoses that have resulted to mobility limitations, gait instability, generalized weakness, and impairment of motor control as demonstrated by the following impairment level findings: 1. Decreased strength to left hip major muscle groups 2. Impaired standing balance 3. Limitation of joint range of motion in left knee Impairments are contributing to the following functional limitations: 1. Inability to safely ambulate without assistive device 2. Increase completion time for mobility ADL performance 3. Increased fall risk Patient is assessed as a 20808 moderate complexity based on the following: History: 86-year-old female with impairment level findings, functional limitations, and past medical history as indicated above Examination: Demonstrable impairment in strength, balance, and mobility level with underlying impairments and functional limitations as documented above Presentation: Evolving Decision Makin moderate Goals: N/A. PT evaluation and 1-2 treatment sessions only for functional mobility training using recommended AD and for HEP instruction. Plan of Care/Treatment Plan: N/A. PT evaluation and 1-2 treatment session only for functional mobility training using recommended AD and for HEP instruction. DISCHARGE RECOMMENDATIONS: [] Home with no services [] [] Home with services [specify] [X] Home with outpatient PT. When medically cleared by orthopedic surgeon. Will benefit from outpatient PT services to facilitate optimal functional mobility outcomes and independent community ambulation without an assistive device. [] SNF for continued rehabilitation [] [] [facility] [] [] SNF versus LTC based on ability to participate and progress [] TREATMENT CODE/TIME: 76493 x 30, 37839 x 12 minutes beginning at 11:13 AM. During lunch Thank you for the opportunity to participate in the care of this patient. Lorena Harrison PT, DPT, CLT [facility] [place], [place]
[2022-03-15] MEDS: oxyCODONE 5 MG TAB PO (11:32)
--- NOTE | 2022-03-15 12:42 | W.ANESPOSTOP ---
Postoperative Evaluation Date, Time and Location Date Performed: 03/15/22 Time Performed: 12:12 Patient Location: Day Surgery Unit Vital Signs Most Recent Imported Vital Signs: Most Recent Vital Signs Temp Pulse Resp BP Pulse Ox 36.2 C L 52 L 13 118/83 95 03/15/22 10:30 03/15/22 10:30 03/15/22 10:30 03/15/22 10:30 03/15/22 10:30 Pain Score Most Recent Pain Score: Most Recent Pain Score Pain Level 0 03/15/22 10:30 Assessment Mental Status: Awake (Alert & Oriented to Patient Baseline) Airway and Respiratory Function: Patent airway with normal (patient baseline) respiratory exam Cardiovascular Function: Hemodynamically Stable Hydration Status: Adequately Hydrated Nausea & Vomiting: No Nausea or Vomiting Pain: Pt. Denies Any Pain Peripheral Nerve Block: Patient did not receive a nerve block
== END 2022-03-15 12:35 | disposition home or self-care (01) ==
PROVIDERS: PCP Family Medicine; Visit Provider Student in an Organized Health Care Education/Training Program
PROC: (CPT 27130; principal; 2022-03-15 07:30)
DX: M16.12 Unilateral primary osteoarthritis, left hip (principal); Z95.3 Presence of xenogenic heart valve; I10 Essential (primary) hypertension
CPT/HCPCS: 20985; 27130; C1776; 97110; 97162; 73501; J0690; J1100; J2250; J2370; J2405

== ENCOUNTER 2022-03-28 11:47 | Outpatient (CLI) | payer MEDICARE, SELFPAY ==
--- NOTE | 2022-03-28 10:30 | DI.RAD_ITS ---
Exam(s) XR HIP LT COMPLETE AP PELVIS EXAM: XR HIP LT COMPLETE AP PELVIS INDICATION: 1ST POST OP L BENNIE. COMPARISON: CR XR PELVIS AP from 03/07/2022 XA XR HIP LT IN OR from 03/15/2022 TECHNIQUE: 2D digital imaging was performed. Two views. FINDINGS: There is has been no change in the alignment of the left hip prosthesis. There are no abnormal bony lucencies. There are mild degenerative changes of the right hip. DATA REPOSITORY: RADIATION DOSE DELIVERED:
== END 2022-03-28 11:48 | disposition home or self-care (01) ==
LOC: DIORS 11:48
PROVIDERS: PCP Family Medicine; Referring Provider Family Medicine; Visit Provider Student in an Organized Health Care Education/Training Program
DX: Z96.642 Presence of left artificial hip joint (principal); Z47.1 Aftercare following joint replacement surgery
CPT/HCPCS: 73502

== ENCOUNTER → 2022-04-25 10:09 | Outpatient (BNVA) | payer MEDICARE, SELFPAY | PROVIDERS: PCP Family Medicine; Referring Provider Family Medicine; Visit Provider Student in an Organized Health Care Education/Training Program | DX: Z47.1 Aftercare following joint replacement surgery (principal); Z96.642 Presence of left artificial hip joint ==

== ENCOUNTER 2022-06-14 01:44 | Outpatient (CLI) | payer MEDICARE, SELFPAY ==
--- NOTE | 2022-06-14 07:15 | DI.US_ITS ---
APPROVED REPORT EXAM: Comprehensive 2D, Doppler, and color-flow Echocardiogram Patient Location: Out-Patient Endoscopy Rn: Celia Serrato RDCS (AE) Indications: Aorta dilation, AVR Bioprosthetic Other Information Study Quality: Adequate Conclusion Normal left ventricular wall thickness and chamber size. Estimated ejection fraction is 60%. Wall m otion is normal Normal right ventricular size and systolic function Both atria are mildly to moderately dilated There is a bioprosthetic aortic valve. Peak gradient is 38, mean 23 mmHg. There is mild to moderate aortic regurgitation Mild mitral annular calcification. Mild mitral regurgitation Normal tricuspid valve with mild to moderate regurgitation. Estimated right ventricular systolic pre ssure is 24.5 mmHg Dilated ascending aorta measuring 4.32 cm Wall motion Left Ventricle The left ventricle is normal size. The left ventricular systolic function is normal. The left ventric ular ejection fraction is within the normal range. There is normal left ventricular wall thickness. T here is normal LV segmental wall motion. There is no ventricular septal defect visualized. LVEF is 60 %. Right Ventricle The right ventricle is normal size. The right ventricular systolic function is normal. The RVSP is 24 .5 mmHg. Atria Left atrium is mild to moderately dilated. Right atrium is mild to moderately dilated. The interatr ial septum is intact with no evidence for an atrial septal defect. Aortic Valve Peak aortic valve gradient is 38.1mmHg. Highest mean aortic valve gradient is 22.8mmHg. Calculated AV A by the continuity equation is 1.61_cm2. mild to moderate aortic regurgitation. Bioprosthetic aortic valve is present. Mitral Valve Mild mitral annular calcification. No evidence of mitral valve stenosis. Mild mitral regurgitation. Tricuspid Valve The tricuspid valve is normal in structure. There is no tricuspid valve stenosis. Mild to moderate t ricuspid regurgitation. Pulmonic Valve The pulmonary valve is normal in structure. There is no pulmonic valvular stenosis. Trace pulmonic re gurgitation. Great Vessels The aortic root is normal in size. The ascending aorta is moderate to severely dilated. IVC is normal in size and collapses >50% with inspiration. Pericardium There is no pericardial effusion. 2D Dimensions IVSD d PLAX 0.97 cm F: 0.6-1.0 LV Vol A2C d MOD 90.0 mL LVPW d PLAX 0.95 cm F: 0.6 - 1.0 LV Vol A4C d MOD 88.9 mL LVID d PLAX 4.44 cm F: 3.8 - 5.2 LA vol/ BSA A2C s A-L 43.1 mL/m2 LVDs 2.95 cm F: 2.2 - 3.5 LA vol/ BSA A4C s A-L 26.4 mL/m2 Ao Root d 3.04 cm F: 2.7 - 3.3 LA Vol/ BSA Biplane s A-L 34.7 mL/m2 RA Area A4C 18.31 cm2 LA Area A4C s MOD 18.15 cm2 RA Vol/ BSA A4C s A-L 30.3 mL/m2 LA Area A2C s MOD 23.87 cm2 Ao Asc Diam d 4.32 cm F: 2.3 - 3.1 LV EF A4C MOD 57.0 % LV EF Teichholz 62.4 % LV EF A2C MOD 60.5 % LVEF (Thomas's) 57.32 % F: 54 - 74 LV EF Biplane MOD 57.3 % LV Volume 72.21 mL F: 46 - 106 SV 52.83 mL LV Volume Index 40.79 mL/m2 F: 29 - 61 SV Index 29.95 mL/m2 LV Vol Biplane MOD 92.2 mL FS 33.45 % M-Mode TAPSE 1.68 cm (M/F) >1.7 LV Diastology MV E' medial 0.044 (>0.07 m/s) E/A Ratio 0.8 LV E/e MED 12.55 (<14) MV E Vmax 0.55 (0.4-1.3 m/s) MV E' lateral 0.087 (>0.1 m/s) MV A Vmax 0.70 (0.4-1.3 m/s) LV E/e LAT 6.35 (<14) MV E/A Ratio 0.79 MV E/E' medial 12.59 MV E/E' lateral 6.37 Aortic Valve LVOT Area 3.65 cm2 AoV Area Vmax 1.61 cm2 LVOT Vmax 1.36 m/s AoV Area/ BSA (Vmax) 0.91 cm2/m2 LVOT Mean Odilon. 0.88 m/s ROBERTO Mean Odilon. 1.41 cm2 LVOT Peak Grad 7.4 mmHg ROBERTO Mean Odilon. Index 0.80 cm2/m2 LVOT Mean Grad 3.7 mmHg AR DT 1988 msec LVOT VTI 0.354 m AR PHT 576 msec LVOT Diam s 2.15 cm AoV Vmax 3.09 m/s Velocity Ratio 0.44 AoV Mean Odilon. 2.29 m/s AoV Peak Grad 38.1 mmHg LVOT SV 129.11 mL AoV Mean Grad 22.8 mmHg AoV VTI 0.758 m AoV Area VTI 1.70 cm2 AoV Area/ BSA (VTI) 0.97 cm/m2 Mitral Valve MV DT 283 (160-240 msec) MR Vmax 5.96 m/s MV PHT 82 msec MR VTI 2.178 m MV Area PHT 2.68 cm2 MR Peak Grad 142.3 mmHg MV VTI 0.266 m MR Mean Grad 89.4 mmHg MV VTI Annulus 0.273 m MV Area VTI 4.98 (4.0-6.0 cm2) Pulmonary Valve PV Vmax 0.89 (0.5-1.5 m/s) RVOT Peak Gr. 0.73 mmHg PV Peak Grad 3.2 mmHg RVOT Mean Gr. 0.35 mmHg PV Mean Grad 1.8 mmHg RVOT VTI 0.094 m PV VTI 0.197 m RVOT Vmax 0.43 m/s Tricuspid Valve TR Peak Grad 21.5 mmHg TR Vmax 2.32 m/s RA Pressure 3.00 mmHg RVSP (TR) 24.5 mmHg
== END 2022-06-14 02:04 ==
LOC: DI 01:44
PROVIDERS: PCP Family Medicine; Visit Provider Internal Medicine Cardiovascular Disease
DX: I25.10 Atherosclerotic heart disease of native coronary artery without angina pectoris (principal); I77.810 Thoracic aortic ectasia; Z95.3 Presence of xenogenic heart valve
CPT/HCPCS: 93306

== ENCOUNTER → 2022-06-21 09:53 | Outpatient (BNVA) | payer MEDICARE, SELFPAY | PROVIDERS: PCP Family Medicine; Referring Provider Family Medicine; Visit Provider Internal Medicine Cardiovascular Disease | DX: I77.810 Thoracic aortic ectasia (principal); I25.10 Atherosclerotic heart disease of native coronary artery without angina pectoris; I10 Essential (primary) hypertension; Z95.2 Presence of prosthetic heart valve; Z95.1 Presence of aortocoronary bypass graft | CPT/HCPCS: 99213 ==

== ENCOUNTER 2023-03-16 10:06 | Outpatient (CLI) | payer MEDICARE, SELFPAY ==
--- NOTE | 2023-03-16 09:45 | DI.RAD_ITS ---
Exam(s) XR HIP LT AP LAT ONLY EXAM: XR HIP LT AP LAT ONLY CLINICAL HISTORY: ANNUAL F/U L BENNIE. TECHNIQUE: 2D digital imaging was performed. Two images were obtained. AP and lateral of the hip vi ews were obtained. COMPARISON: CR XR HIP LT COMPLETE AP PELVIS from 03/28/2022 FINDINGS: BONES: There are stable post operative changes of a left total hip replacement present. No fracture or dislocation. JOINTS: The orthopedic hardware is in good position. No evidence of hardware loosening. SOFT TISSUE: Atherosclerosis. IMPRESSION: Stable postoperative changes. DATA REPOSITORY: RADIATION DOSE DELIVERED:
== END 2023-03-16 10:07 | disposition home or self-care (01) ==
LOC: DIORS 10:06
PROVIDERS: PCP Family Medicine; Referring Provider Family Medicine; Visit Provider Student in an Organized Health Care Education/Training Program
DX: Z47.1 Aftercare following joint replacement surgery (principal); Z96.642 Presence of left artificial hip joint
CPT/HCPCS: 99213; 73502

== ENCOUNTER 2023-06-06 03:46 | Outpatient (CLI) | payer MEDICARE, SELFPAY ==
[2023-06-06 10:07] LABS: CREATININE 1.1 mg/dL (0.55-1.02); Estimated GFR 49.24 (mL/min/1.73m2); Potassium 3.8 mmol/L (3.5-5.1)
== END 2023-06-06 03:47 | disposition home or self-care (01) ==
LOC: LBO 03:47
PROVIDERS: PCP Family Medicine; Visit Provider Family Medicine
DX: I10 Essential (primary) hypertension (principal)
CPT/HCPCS: 36415; 82565; 84132

== ENCOUNTER → 2023-06-29 01:53 | Outpatient (CLI) | payer MEDICARE, SELFPAY ==
--- NOTE | 2023-06-29 14:30 | DI.US_ITS ---
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 Mild concentric LVH with normal systolic function,EF 55-60%. Normal RV function. Bioprosthetic aortic valve with mean gradient of 23 mmHg which is acceptable;mild transvalvular AI, m ild perivalvular AI. LV size is normal. Anatomically normal MV,TV,PV. Mild MR, mild to moderate TR without phtn. Mildly dilated aortic root, moderately dilated ascending aorta. No intracardiac shunt No pericardial effusion. Wall motion Left Ventricle The left ventricle is normal size. The left ventricular systolic function is normal. The left ventric ular ejection fraction is within the normal range. Borderline concentric left ventricular hypertrophy . There is normal LV segmental wall motion. There is no ventricular septal defect visualized. Right Ventricle The right ventricle is normal size. Right ventricular systolic function is grossly normal. Atria The left atrium size is normal. Right atrium is moderately dilated. The interatrial septum is intact with no evidence for an atrial septal defect. Aortic Valve Bioprosthetic aortic valve is present. Mild to moderate aortic regurgitation. Mitral Valve There is mitral annular calcification. No evidence of mitral valve stenosis. Mild mitral regurgitatio n. Tricuspid Valve The tricuspid valve is normal in structure. There is no tricuspid valve stenosis. Mild to moderate tr icuspid regurgitation. The RVSP is 26.5 mmHg. Pulmonic Valve The pulmonary valve is normal in structure. There is no pulmonic valvular stenosis. Mild pulmonic reg urgitation. Great Vessels Aortic root is mildly dilated. The ascending aorta is moderately dilated. Aortic arch is normal in c aliber. IVC is normal in size and collapses >50% with inspiration. Pericardium There is no pericardial effusion. 2D Dimensions IVSD d PLAX 0.95 cm F: 0.6-1.0 Ao Root d 3.65 cm F: 2.7 - 3.3 LVPW d PLAX 0.97 cm F: 0.6 - 1.0 Ao Asc Diam d 4.28 cm F: 2.3 - 3.1 LVID d PLAX 4.28 cm F: 3.8 - 5.2 LVDs 2.89 cm F: 2.2 - 3.5 LV EF Teichholz 61.0 % FS 32.39 % LV EDV (Teich) 82.0 mL LV ESV (Teich) 32.0 mL Stroke Vol Index (Teich) 28.76 Auto EF LV EDV A4C 100.6 mL LV EDV A2C 102.7 mL LV EDV BP 101.1 mL LV ESV A4C 41.3 mL LV ESV A2C 41.9 mL LV ESV BP 42.3 mL LVEF(%) A4C 59.0 % LVEF(%) A2C 59.2 % LVEF(%) BP 58.1 % LV SV A4C 59.3 ml LV SV A2C 60.8 ml LV SV BP 58.8 ml LV CO A4C 4.2 L/min LV CO A2C 3.4 L/min LV CO BP 3.8 L/min HR A4C 70.15 BPM HR A2C 55.73 BPM LV EDV Index (BP) LA Volume LA Length A4C 4.0 cm LA Length A2C 3.8 cm LA Area A4C s 7.44 cm2 LA Area A2C s 11.74 cm2 LA Vol A4C A-L 11.90 mL LA Vol A2C A-L 30.89 mL LA Vol Biplane A-L 19.6 mL LA Vol/BSA A4C A-L LA Vol/BSA A2C A-L LA Vol/BSA BP A-L 11.3 mL/m2 LA Vol A4C MOD 11.1 mL LA Vol A2C MOD 29.8 mL LA Vol BP MOD 18.6 mL RA Volume RA Area A4C 21.3 cm2 RA ESV A4C (A-L) 79.9mL RA Vol/BSA A4C A-L RA Length A4C 4.8 cm RA ESV A4C (MOD) 77.0mL LV Diastology MV E' medial 0.062 (>0.07 m/s) MV E Vmax 0.69 (0.4-1.3 m/s) MV E/E' MED 11.16 (<14) MV A Vmax 0.55 (0.4-1.3 m/s) MV E' lateral 0.097 (>0.1 m/s) E/A Ratio 1.3 MV E/E' LAT 7.06 (<14) MV E' Average 0.079 m/s MV E/E'(average) 8.65 Aortic Valve AoV Vmax 3.10 m/s LVOT Vmax 0.82 m/s AoV Peak Grad 61.6 mmHg LVOT Peak Grad 2.7 mmHg AoV Area (Vmax) 0.60 cm2 LVOT VTI 0.195 m AoV VTI 0.751 m LVOT Mean Grad 1.5 mmHg AoV Mean Odilon. 2.29 m/s LVOT SV 44.37 mL AoV Mean Grad 23.1 mmHg LVOT Diam s 1.70 cm AoV Area (VTI) 0.59 cm2 AV Regurg Peak Gr. 84.80 mmHg Velocity Ratio 0.[address] [place] 2.6m/sec2 AR DT 1801 msec AR PHT 522 msec AR Vmax 4.60 m/s Mitral Valve MV DT 151 (160-240 msec) Pulmonary Valve PV Vmax 0.82 (0.5-1.5 m/s) RVOT Vmax 0.33 m/s PV Peak Grad 2.7 mmHg RVOT Peak Gr. 0.4 mmHg PV Mean Odilon 0.55 m/s RVOT VTI 0.071 m PV Mean Grad 1.4 mmHg RVOT Mean Gr. 0.3 mmHg Tricuspid Valve RA Pressure 3.00 mmHg TR Vmax 2.43 m/s TR Peak Grad 23.5 mmHg RVSP (TR) 26.5 mmHg
== END ==
PROVIDERS: PCP Family Medicine; Visit Provider Internal Medicine Cardiovascular Disease
DX: I10 Essential (primary) hypertension (principal); I77.810 Thoracic aortic ectasia; Z95.3 Presence of xenogenic heart valve
CPT/HCPCS: 93306

== ENCOUNTER 2023-07-11 08:06 | Outpatient (CLI) | payer MEDICARE, SELFPAY ==
--- NOTE | 2023-07-11 08:00 | RT.EKG_ITS ---
APPROVED REPORT Exam: Resting ECG Reason for Exam: cad Patient Location: O HR:55 bpm ECG Measurements Heart Rate 55 AXIS IA 185 P 66 QRSd 92 QRS -54 QT 435 T 102 QTc 416 Conclusion Sinus rhythm...normal P axis, V-rate 50- 99 Atrial premature complex...SV complex w/ short R-R interval Probable left atrial enlargement...P >50mS, <-0.10mV V1 Left anterior fascicular block...axis(240,-40), init forces inf RSR' in V1 or V2, probably normal variant...small R' only Probable LVH with secondary repol abnrm...multiple LVH criteria
== END 2023-07-11 08:07 | disposition home or self-care (01) ==
LOC: DI.CARD 08:07
PROVIDERS: PCP Family Medicine; Visit Provider Internal Medicine Cardiovascular Disease
DX: Z95.3 Presence of xenogenic heart valve (principal); I25.10 Atherosclerotic heart disease of native coronary artery without angina pectoris
CPT/HCPCS: 93010

== ENCOUNTER → 2023-07-11 09:54 | Outpatient (BNVA) | payer MEDICARE, SELFPAY | PROVIDERS: PCP Family Medicine; Visit Provider Internal Medicine Cardiovascular Disease | DX: I49.1 Atrial premature depolarization (principal); I44.4 Left anterior fascicular block; I77.810 Thoracic aortic ectasia; I25.10 Atherosclerotic heart disease of native coronary artery without angina pectoris; I10 Essential (primary) hypertension; Z95.3 Presence of xenogenic heart valve | CPT/HCPCS: 93005; 99213 ==

== ENCOUNTER 2024-05-25 17:30 | Observation (INO) | payer MEDICARE, SELFPAY ==
[2024-05-25] VITALS (27 sets, daily range): BP systolic 125–254; BP diastolic 44–94; PULSE 57–94; RESP 16–37; TEMP 36.6–37; O2SAT 93–100
--- NOTE | 2024-05-25 17:30 | DI.CT_ITS ---
Exam(s) CT BRAIN NECK CTA EXAM: CT BRAIN NECK CTA CLINICAL HISTORY: dysmetria, dizziness/vertigo, ?stroke. TECHNIQUE: Imaging Protocol: Axial CT angiography was performed with multi-slice acquisition and mu lti-planar and MIP reconstructions. CONTRAST MATERIAL: Intravenous: Omnipaque 350 Contrast volume:70 ml COMPARISON: CT HEAD WITHOUT CONTRAST from 07/16/2013 FINDINGS: CT Head W/O and W contrast: Ventricles and Extra axial spaces: Normal in size and morphology for the patient's age. Hemorrhage: None. Cerebral parenchyma: No evidence of acute infarct or mass. Midline shift: None. Brainstem/Cerebellum: No acute findings.. Calvarium: Normal. Visualized Paranasal sinuses/Mastoids: Clear. Soft Tissues: Unremarkable. Enhancement: Normal. CTA Brain W: Internal Carotid Arteries: Petrous: Normal. Cavernous: Mild calcifications. Cerebral: Normal. Middle Cerebral Arteries: Right: No aneurysm, occlusion or significant stenosis. Left: No aneurysm, occlusion or significant stenosis. Anterior Cerebral Arteries: Right: No aneurysm, occlusion or significant stenosis. Left: No aneurysm, occlusion or significant stenosis. Posterior cerebral Arteries: Right: No aneurysm, occlusion or significant stenosis. Left: No aneurysm, occlusion or significant stenosis. Vertebral Arteries: Right: No aneurysm, occlusion or significant stenosis. Left: No aneurysm, occlusion or significant stenosis. Basilar Artery: No aneurysm, occlusion or significant stenosis. CTA Neck W: Common Carotid: Right: No dissection, occlusion or significant stenosis. Left: No dissection, occlusion or significant stenosis. External Carotid: Right: No dissection, occlusion or significant stenosis. Left: No dissection, occlusion or significant stenosis. Internal Carotid: Right: Minimal plaque at the proximal internal carotid artery. No dissection, occlusion or significa nt stenosis. Left: No dissection, occlusion or significant stenosis. Vertebral Artery: Right: No dissection, occlusion or significant stenosis. Left: No dissection, occlusion or significant stenosis. Lung Apices: Biapical scarring and calcification. Emphysematous changes. Bones: No acute abnormality. Degenerative changes. Soft Tissues: Normal. IMPRESSION: 1. CTA brain: No evidence vascular occlusion or significant stenosis. 2. Head CT: Unremarkable CT Head. 3. CTA neck: Minimal plaque at the right proximal internal carotid artery. Exam otherwise unremarkab le. RADIATION DOSE DELIVERED: Total DLP DATA REPOSITORY: All CT scans at this facility are submitted to the National Radiology Data Registry (NRDR) Dose Index Registry (DIR) with the [employer] ([employer]). RADIATION OPTIMIZATION: All CT scans at this facility use at least one of these dose optimization te chniques: automated exposure control; mA and/or kV adjustment per patient size (includes targeted exa ms where dose is matched to clinical indication); or iterative reconstruction.
--- NOTE | 2024-05-25 17:30 | RT.EKG_ITS ---
APPROVED REPORT Exam: Resting ECG Reason for Exam: Dizzy Patient Location: E HR:82 bpm ECG Measurements Heart Rate 82 AXIS NV 213 P 68 QRSd 91 QRS -60 QT 365 T 71 QTc 425 Conclusion Sinus rhythm, rate 82 No STEMI Inverted T waves aVL, unchanged from priors NV interval increased to 213ms
--- NOTE | 2024-05-25 17:59 | ED.GENADUL_ITS ---
Discharge Plan Disposition Patient Disposition: Admit to [facility] Condition: Stable Discharge Details Chief Complaint: Dizzy/Sync Clinical Impression: Hypertensive encephalopathy Primary Care Provider: [place] [place] ED Provider: Ori Armijo Home Meds and New Rx's Prescriptions: No Action carvedilol 6.25 mg tablet 6.25 mg PO BID Qty: 180 3RF Rx Instructions: must administer with a meal/food latanoprost [Xalatan] 2.5 ML drops 1 drp OU QPM Qty: 1 Rx Instructions: 0.005% dorzolamide 10 ML drops 1 drp OU BID cholecalciferol (vitamin D3) 1,000 UNIT tablet 1,000 unit PO DAILY losartan-hydrochlorothiazide 100-12.5 mg tablet 1 tab PO DAILY Qty: 90 3RF atorvastatin 40 mg tablet 40 mg PO DAILY Qty: 90 4RF brimonidine 0.2 % drops 1 drp ophthalmic (eye) BID Patient Comments: INSTILL ONE DROP IN EACH EYE TWO TIMES A DAY HPI General Date/Time Provider Initiated Documentation: 05/25/24 17:42 . HPI Narrative: 88 year-old female presents to ED today by POV/ambulating with a chief complaint of confusion, felt like she was watching herself from outside her body, possible dizziness, not entirely with it per family with last known well around 1515 when family left for the grocery store, with return at 1700 with questionable altered mental status. Quality described as generalized confusion/brain fog, no radiation to slurred speech, has mild coordination di fficulty, denies motor weakness, denies numbness/tingling, denies chest pain, denies floaters/scotoma, denies vomiting, endorses nausea. Severity is described as moderate to severe. Palliating factors include nothing specific attempted. Provoking factors include nothing specific. Events leading up to the incident/Associated Symptoms: Patient endorses history of TIAs however found incidentally after the fact. Patient not anticoagulated. Related Data Home Medications ?Medication ?Instructions ?Recorded ?Confirmed latanoprost 0.005 % eye drops 1 drp OU QPM ##1 08/20/12 05/25/24 (Xalatan) dorzolamide 2 % eye drops 1 drp OU BID 09/22/15 05/25/24 cholecalciferol (vitamin D3) 25 1,000 unit PO DAILY 04/05/17 05/25/24 mcg (1,000 unit) tablet carvedilol 6.25 mg tablet 6.25 mg PO BID #180 tabs 05/23/23 05/25/24 losartan 100 1 tab PO DAILY #90 tabs 10/04/23 05/25/24 mg-hydrochlorothiazide 12.5 mg tablet atorvastatin 40 mg tablet 40 mg PO DAILY #90 tab-caps 03/14/24 05/25/24 brimonidine 0.2 % eye drops 1 drp ophthalmic (eye) BID 05/25/24 05/25/24 Previous Rx's ?Medication ?Instructions ?Recorded carvedilol 6.25 mg tablet 6.25 mg PO BID #180 tabs 05/23/23 losartan 100 1 tab PO DAILY #90 tabs 10/04/23 mg-hydrochlorothiazide 12.5 mg tablet atorvastatin 40 mg tablet 40 mg PO DAILY #90 tab-caps 03/14/24 Allergies Allergy/AdvReac Type Severity Reaction Status Date / Time No Known Allergies Allergy Verified 07/11/23 10:14 General Stated Complaint: Dizzy/Sync CHARIS: 3 Review of Systems All systems reviewed & are unremarkable except as noted in HPI and below Exam Narrative Exam Narrative: GENERAL APPEARANCE: Well-nourished, non-toxic, awake and alert, atraumatic, no acute distress. SKIN: Warm, pink, dry, intact, without rashes/lesions/ulcerations. HEAD: Normocephalic, atraumatic, normal hair distribution for gender/age. EYES: Normal conjunctiva, no exudates on lids/lashes, EOMs intact without nystagmus, visual [place] intact ENT: Nares patent, no circumoral cyanosis, no facial swelling NECK: Supple, trachea midline, painless cervical ROM, no carotid bruit. LUNGS/CHEST: Lungs CTA bilaterally-no rhonchi/rales/wheezes diffusely, non- labored respirations, normal A/P diameter, symmetrical expansion, no chest wall deformity HEART (CV/PV): Regular rate and rhythm without murmur, no peripheral edema, no JVD. ABDOMEN: Soft, non-distended, no guarding, no tenderness. MSK: Normal ROM, no swelling/deformity to bilateral UEs or LEs, moving all extremities without weakness, no cyanosis, spine midline without tenderness, normal curvature. NEURO: Mental Status AAOx4 - alert to person, place, time, events No facial droop, no forehead involvement, some neglect with following commands with [id number] Motor: No focal weakness - strength 5/5 in bilateral UEs and LEs, proximal and distal, symmetric. Sensory: sensation intact to light touch globally. Gait NT PSYCH: euthymic, cooperative, pleasant, appropriate speech Course Vital Signs Vital signs: Vital Signs Temperature 36.6 C 05/25/24 17:32 Pulse 94 H 05/25/24 17:32 Respiratory Rate 16 05/25/24 17:32 Blood Pressure 254/94 H 05/25/24 17:32 Pulse Oximetry 100 05/25/24 17:32 Temperature 36.6 C 05/25/24 17:32 Temperature Source Oral 05/25/24 17:32 Pulse 78 05/25/24 17:37 Pulse 80 05/25/24 17:40 Respiratory Rate 21 05/25/24 17:40 Respiratory Effort Normal, Non-Labored 05/25/24 17:43 Respiratory Depth Normal 05/25/24 17:43 Respiratory Pattern Normal 05/25/24 17:43 Blood Pressure 226/88 H 05/25/24 17:37 Blood Pressure Mean 135 05/25/24 17:37 Blood Pressure Position Supine 05/25/24 17:32 Pulse Oximetry 99 05/25/24 17:34 Oxygen Delivery Method Room Air 05/25/24 17:32 Oxygen Flow Rate 0 05/25/24 17:32 Pain Level 0 05/25/24 17:32 Comment left arm 05/25/24 17:37 Medical Decision Making This dictation utilizes [id number] dictation software and may contain unedited grammatical errors. 88 year-old female presents to ED today by POV/ambulating with a chief complaint of confusion, felt like she was watching herself from outside her body, possible dizziness, not entirely with it per family with last known well around 1515 when family left for the grocery store, with return at 1700 with questionable altered mental status. Quality described as generalized confusion/brain fog, no radiation to slurred speech, has mild coordination difficulty, denies motor weakness, denies numbness/tingling, denies chest pain, denies floaters/scotoma, denies vomiting, endorses nausea. Severity is described as moderate to severe. Palliating factors include nothing specific attempted. Provoking factors include nothing specific. Events leading up to the incident/Associated Symptoms: Patient endorses history of TIAs however found incidentally after the fact. Patients' medical history: [ ]. Family and social history: [ ]. Pertinent exam findings / vital signs include some neglect while following commands of dysmetria, no focal motor deficit, vision grossly intact, visual augustin intact, benign cardiopulmonary exam, benign abdomen, no nuchal rigidity. NIH: 1 for neglect with commands, but soft indication Differential / pathologies of concern include CVA, hypertensive encephalopathy, intoxication, pres syndrome, TIA, ICH, less likely meningismus. Diagnostic studies of: -CBC, CMP, lactate, magnesium, troponin, lipase, TSH, UA, EKG, CTA brain and neck with contrast. -CBC shows no leukocytosis, no anemia -Lactate negative -CMP shows no actionable abnormality with baseline creatinine 1.1 -Magnesium within normal limits -LFTs within normal limits with mild elevation of alk phos and benign elevation of bilirubin at 1.2 -Lipase negative -TSH within normal limits -Troponin negative -UA without signs of infection -CTA of the head and neck shows no acute occlusive pathology -EKG shows no arrhythmia, no new onset A-fib, normal intervals, no ST changes Interventions of: -Telemetry neuroconsult, they agree stroke scale is 0 but do recommend hobs admit for MRI and echocardiogram, speech and PT consults, loading with 300 clopidogrel and 81 ASA, will continue 81 ASA and 75 clopidogrel tomorrow daily. Patient was given 20 mg IV labetalol with improvement of BP to the 170s systolics. ED Course/Assessment/Plan: 88-year-old female presents with some confusion at home, feeling like she had an out of body experience, was watching herself from above and having some coordination difficulties noticed by family, the family left at 1515 for the grocery store that was her last known well time, they noticed when they returned around [id number] that she was somewhat altered and brought her here by 1745. Her systolic blood pressure was greater than 250 on arrival and we are very close to 3-hour window for tPA and the patient is 88 years old, the patient has history of aortic dilatation I do not think it is reasonable to administer tPA at this time, by the time he obtain teleneuro consult we will be outside window. I spoke with [facility] [place] [facility] teleneurology they agree with this plan, her stroke scale is 0 they do think this may be more of a TIA versus hypertensive encephalopathy and recommend ops admission for stroke workup regardless including MRI, echocardiogram, speech and PT consults. I counseled the patient's family on this and I spoke with hospitalist Dr. Gallegos accepted the patient for admission at 2029. At 2039, the patients son divulged that its possible his mother got into a candy that contained psilocybin. Findings not consistent with active worsening stroke or current deficit, meningitis, intracranial hemorrhage. Disposition of Hypertensive Encephalopathy. Patient verbalized understanding of the plan and return to ED criteria and engaged in shared decision making. Medical Records Medical records reviewed: Yes I reviewed the patient's medical records. Imaging Data Radiologic Study: Attestation: I personally reviewed and interpreted this imaging study as follows: Imaging: CT Scan Radiologist's impression: Exam: CTA Head Without And With Contrast, Arteriography Exam date and time: 05/25/2024 5:47 PM Age: 88 years old Clinical indication: Stroke-like symptoms; Other: Dysmetria, dizziness/vertigo, ? stroke TECHNIQUE: Imaging protocol: Computed tomographic angiography of the head without and with contrast. Exam focused on the arteries. 3D rendering (Not supervised by radiologist): MIP and/or 3D reconstructed images were created by the technologist. Contrast material: OMNIPAQUE 350; Contrast volume: 70 ml; Contrast route: INTRAVENOUS (IV); Other technique: STROKE PROTOCOL was implemented. COMPARISON: No relevant prior studies available. FINDINGS: ANTERIOR CIRCULATION: Right internal carotid artery: Intracranial segment is patent with no significant stenosis or occlusion. No aneurysm. Right middle cerebral artery: No occlusion or significant stenosis. No aneurysm. Right anterior cerebral artery: No occlusion or significant stenosis. No aneurysm. Left internal carotid artery: Intracranial segment is patent with no significant stenosis. No aneurysm. Left middle cerebral artery: No occlusion or significant stenosis. No aneurysm. Left anterior cerebral artery: No occlusion or significant stenosis. No aneurysm. POSTERIOR CIRCULATION: Right vertebral artery: No occlusion or significant stenosis. No aneurysm. Left vertebral artery: No occlusion or significant stenosis. No aneurysm. Basilar artery: No occlusion or significant stenosis. No aneurysm. Right posterior cerebral artery: No occlusion or significant stenosis. No aneurysm. Left posterior cerebral artery: No occlusion or significant stenosis. No aneurysm. HEAD: Brain: No intracranial hemorrhage. There is global parenchymal volume loss. Periventricular white matter hypoattenuation is nonspecific but most likely due to small vessel disease. No evidence of acute territorial infarct or cerebral edema. No mass effect or midline shift. Cerebral ventricles: Prominent ventricles likely secondary to volume loss. Bones: Unremarkable. No acute fracture. Paranasal sinuses: Visualized sinuses are normal. No fluid levels. Mastoid air cells: Visualized mastoids are normal. No mastoid effusion. Soft tissues: Unremarkable. IMPRESSION: No acute intracranial findings. ASSESSMENT: ASPECTS ([place] Stroke Program Early CT Score) is 10. PROCEDURE INFORMATION: Exam: CTA Neck Without And With Contrast Exam date and time: 05/25/2024 5:47 PM Age: 88 years old Clinical indication: Stroke-like symptoms; Other: Dysmetria, dizziness/vertigo, ? stroke TECHNIQUE: Imaging protocol: Computed tomographic angiography of the neck without and with contrast. Exam focused on the cervical segments of the vasculature. 3D rendering (Not supervised by radiologist): MIP and/or 3D reconstructed images were created by the technologist. Contrast material: OMNIPAQUE 350; Contrast volume: 70 ml; Contrast route: INTRAVENOUS (IV); COMPARISON: No relevant prior studies available. FINDINGS: Right common carotid artery: No stenosis. No dissection or occlusion. Right internal carotid artery: Small amount of plaque at the origin of the right internal carotid artery with tiny ulceration along its proximal portion. Minimal stenosis. Right external carotid artery: No occlusion or stenosis of the origin. Left common carotid artery: No stenosis. No dissection or occlusion. Left internal carotid artery: No stenosis of the extracranial segment. No dissection or occlusion. Left external carotid artery: No occlusion or stenosis of the origin. Right vertebral artery: No stenosis. No dissection or occlusion. Left vertebral artery: No stenosis. No dissection or occlusion. Soft tissues: Normal. No significant soft tissue swelling. Bones/joints: No acute fracture. Pleural spaces: Biapical pleural-parenchymal scarring and emphysema. IMPRESSION: Small amount of plaque at the origin of the right internal carotid artery with tiny ulceration along its proximal portion. Minimal stenosis. REFERENCES: NASCET CRITERIA. The degree of stenosis in the cervical segment of the internal carotid artery is based on NASCET criteria. Normal is no stenosis. Mild is less than 50% stenosis. Moderate is 50-69% stenosis. Severe is 70% to 99% stenosis. Total occlusion is no detectable patent lumen. Dictated and Authenticated by: Mickey Lee MD. Lab Data Lab results reviewed: Yes I reviewed the patient's lab results. Labs: Laboratory Tests Range/Units 05/25/24 05/25/24 05/25/24 17:39 17:39 17:39 WBC (4.4-10.8) 10^3/uL 9.19 RBC (3.93-5.22) 10^6/uL 4.45 Hgb (11.2-15.7) g/dL 14.2 Hct (36.0-46.0) % 42.9 MCV (80-95) fL 96 H MCH (27.0-33.0) pg 31.9 MCHC (32.0-36.0) % 33.1 RDW (11.7-14.6) % 13.6 Plt Count (130-400) 10^3/uL 144 MPV (8.0-11.0) fL 11.8 H Immature Gran % % 0.3 Neutrophils % % 70.4 Lymphocytes % % 18.9 Monocytes % % 7.7 Eosinophils % % 2.3 Basophils % % 0.4 Nucleated RBC % (0.0-0.3) % 0.0 Absolute Neutrophils (1.2-6.7) 10^3/uL 6.46 Absolute Lymphocytes (1.2-3.4) 10^3/uL 1.74 Absolute Monocytes (0.1-0.8) 10^3/uL 0.71 Absolute Eosinophils (0.0-0.7) 10^3/uL 0.21 Absolute Basophils (0.0-0.2) 10^3/uL 0.04 VBG Lactate (0.6-1.4) mmol/L 1.0 Sodium (136-145) mmol/L 140 Potassium (3.5-5.1) mmol/L 4.4 Chloride (98-107) mmol/L 105 Carbon Dioxide (21.0-32.0) mmol/L 27.3 Anion Gap (3-11) mmol/L 7.7 BUN (7-18) mg/dL 30 H Creatinine (0.55-1.02) mg/dL 1.1 H Est GFR (CKD-EPI 2020) (mL/min/1.73m2) 48.94 Glucose (74-106) mg/dL 106 Calcium (8.5-10.1) mg/dL 9.3 Magnesium (1.8-2.4) mg/dL 2.0 Cancelled Total Bilirubin (0.2-1.0) mg/dL 1.20 H AST (15-37) U/L 27 ALT (14-59) U/L 30 Alkaline Phosphatase (46-116) U/L 139 H Troponin I (<or=51) ng/L 7 Cancelled Total Protein (6.4-8.2) g/dL 7.6 Albumin (3.4-5.0) g/dL 3.9 Lipase (<78) U/L 38 TSH (0.36-3.74) uIU/mL 2.38 Urine Color (Yellow) Urine Clarity (Clear) Urine pH (5-8) Ur Specific [place] (1.005-1.025) Urine Protein (Neg-Trace) mg/dL Urine Ketones (Negative) mg/dL Urine Blood (Negative) Urine Nitrite (Negative) Urine Bilirubin (Negative) Urine Urobilinogen (Up to 0.2) mg/dL Ur Leukocyte Esterase (Negative) Urine RBC (0-2) HPF Urine WBC (0-5) HPF Ur Epithelial Cells (Negative) HPF Urine Crystals (Negative) HPF Urine Bacteria (Negative) HPF Urine Casts (Negative) LPF Urine Mucus (Negative) Ur Culture Indicated? Urine Glucose (Negative) mg/dL Range/Units 05/25/24 05/25/24 18:46 19:30 WBC (4.4-10.8) 10^3/uL RBC (3.93-5.22) 10^6/uL Hgb (11.2-15.7) g/dL Hct (36.0-46.0) % MCV (80-95) fL MCH (27.0-33.0) pg MCHC (32.0-36.0) % RDW (11.7-14.6) % Plt Count (130-400) 10^3/uL MPV (8.0-11.0) fL Immature Gran % % Neutrophils % % Lymphocytes % % Monocytes % % Eosinophils % % Basophils % % Nucleated RBC % (0.0-0.3) % Absolute Neutrophils (1.2-6.7) 10^3/uL Absolute Lymphocytes (1.2-3.4) 10^3/uL Absolute Monocytes (0.1-0.8) 10^3/uL Absolute Eosinophils (0.0-0.7) 10^3/uL Absolute Basophils (0.0-0.2) 10^3/uL VBG Lactate (0.6-1.4) mmol/L Sodium (136-145) mmol/L Potassium (3.5-5.1) mmol/L Chloride (98-107) mmol/L Carbon Dioxide (21.0-32.0) mmol/L Anion Gap (3-11) mmol/L BUN (7-18) mg/dL Creatinine (0.55-1.02) mg/dL Est GFR (CKD-EPI 2020) (mL/min/1.73m2) Glucose (74-106) mg/dL Calcium (8.5-10.1) mg/dL Magnesium (1.8-2.4) mg/dL Total Bilirubin (0.2-1.0) mg/dL AST (15-37) U/L ALT (14-59) U/L Alkaline Phosphatase (46-116) U/L Troponin I (<or=51) ng/L 16 Total Protein (6.4-8.2) g/dL Albumin (3.4-5.0) g/dL Lipase (<78) U/L TSH (0.36-3.74) uIU/mL Urine Color (Yellow) Yellow Urine Clarity (Clear) Clear Urine pH (5-8) 6.0 Ur Specific [place] (1.005-1.025) 1.015 Urine Protein (Neg-Trace) mg/dL Negative Urine Ketones (Negative) mg/dL Negative Urine Blood (Negative) Negative Urine Nitrite (Negative) Negative Urine Bilirubin (Negative) Negative Urine Urobilinogen (Up to 0.2) mg/dL 0.2 Ur Leukocyte Esterase (Negative) Trace H Urine RBC (0-2) HPF Negative Urine WBC (0-5) HPF 3-5 Ur Epithelial Cells (Negative) HPF Rare Urine Crystals (Negative) HPF Negative Urine Bacteria (Negative) HPF Rare Urine Casts (Negative) LPF Negative Urine Mucus (Negative) Negative Ur Culture Indicated? No Urine Glucose (Negative) mg/dL Negative Quality:SDOH Health Related Social Needs: No Data to Display PFSH All Active Problems (Updated 05/25/24 @ 21:03 by OLIVER Billy) Hypertensive encephalopathy (Acute) Hyperlipidemia (Acute) Hypertensive crisis (Acute) COVID-19 (Acute ~06/05/22) Essential hypertension (Chronic 04/12/13) check some BPs at home Ascending aorta dilation (Acute) H/O heart valve replacement with bioprosthetic valve (Acute) Atherosclerosis of [place] coronary artery (Acute 01/09/13) CABG TO SINGLE VESSEL-03/08 Glaucoma (Acute 07/16/12) Right arm pain (Acute) Left leg pain (Acute) Advanced care planning/counseling discussion (Acute) Aortic valve stenosis (Acute) Abnormal mammography (Acute 04/27/07) PFO (patent foramen ovale) (Chronic) 12/27/18 [facility] [place] Aortic valve replaced (Acute 07/17/13) 03/08-tissue valve Transient ischemic attack (Acute 07/11/12) 01/06 07/12 Tietze's disease (Acute) Sensorineural hearing loss, 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) Denies 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 Constipation (Acute) Cholelithiasis without obstruction (Acute) Atrophic vaginitis (Acute) Anxiety (Acute) Surgical History History of total left hip arthroplasty (03/15/22) History of heart valve replacement Aortic valve 2011 Status post cardiac catheterization Cholecystectomy (~1995) Coronary Artery Bypass Gaft (CABG) SINGLE VESSEL Family History Mother , age 73 Pancreatic cancer Father , age 96 Stroke Hypertension Heart disease Maternal Grandfather , age 64 Heart disease Paternal Grandfather , age 69 Parkinson disease Paternal Grandmother , age 80 Heart disease Maternal Grandmother , age 76 No problems noted. Sister Dementia Hypertension Brother Hypertension Brother Hypertension Brother Hypertension Son No problems noted. Son No problems noted. Son No problems noted. Social History Smoking/Tobacco Use Status: Never Second Hand Exposure: No Smoking risk assessment performed?: Yes Alcohol Intake: current Alcohol Intake frequency: holidays/special occasions only Alcohol type: wine Drug use: Never Substance use type: does not use Counseling given: No Adopted: No Caregiver/Support person: No Household members: spouse Housing: house Number of Children: 3 number of grandchildren: 6 Communication Needs: Corrective Lenses Education Level: college Details: BS Do you need help understanding health information?: Never current occupation: retired Pets and animals: No Sexually active: No Do you think of yourself as: straight/heterosexual Current gender identity: female What is your relationship status?: How often do you talk on the phone with friends or family?: decline to answer How often do you get together with friends or relatives?: three or more times per week How often do you attend voodoo or episcopal services?: decline to answer Do you belong to any clubs or organized social groups?: no Panel score (0-1 are the most socially isolated patients): 2 What type of physical activity do you participate in: bicycling Duration: 15-30 minutes/day Frequency: daily Stephanie/Quaker: Moravian Special stephanie needs: No Seatbelt use: always Drive intox or ride w/intox winch driver: No Firearms in home: No Do you feel safe at home: Yes Do you feel safe in your relationship?: Yes Victim of physical abuse: No Victim of emotional abuse: No Victim of sexual abuse: No Would you like helpful sources: No Additional Social history: lives with , son if visiting for [facility]
[2024-05-25] MEDS: Normal Saline - Diluent 50 ML VIAL IJ (18:00)
[2024-05-25] MEDS: Omnipaque 350 MG/ML 100 ML BTL IJ (18:01)
[2024-05-25 18:06] LABS: Abs Immature Grans 0.03 10^3/uL (0.0-0.06); Absolute Basophil Count 0.04 10^3/uL (0.0-0.2); Absolute Eosinophil Count 0.21 10^3/uL (0.0-0.7); Absolute Lymphocyte Count 1.74 10^3/uL (1.2-3.4); Absolute Monocyte Count 0.71 10^3/uL (0.1-0.8); Absolute Neutrophil Count 6.46 10^3/uL (1.2-6.7); Basophils % 0.4 %; Eosinophils % 2.3 %; HCT 42.9 % (36.0-46.0); HGB 14.2 g/dL (11.2-15.7); Immature Grans % 0.3 %; Lymphocytes % 18.9 %; MCH 31.9 pg (27.0-33.0); MCHC 33.1 % (32.0-36.0); MCV 96 fL (80-95); MPV 11.8 fL (8.0-11.0); Monocytes % 7.7 %; Neutrophils % 70.4 %; Platelet Count 144 10^3/uL (130-400); RBC 4.45 10^6/uL (3.93-5.22); RDW 13.6 % (11.7-14.6); RDW-SD 48.5 fL; WBC 9.19 10^3/uL (4.4-10.8)
--- NOTE | 2024-05-25 18:13 | DI.VRAD_ITS ---
PROCEDURE INFORMATION: Exam: CTA Head Without And With Contrast, Arteriography Exam date and time: 05/25/2024 5:47 PM Age: 88 years old Clinical indication: Stroke-like symptoms; Other: Dysmetria, dizziness/vertigo, ? stroke TECHNIQUE: Imaging protocol: Computed tomographic angiography of the head without and with contrast. Exam focused on the arteries. 3D rendering (Not supervised by radiologist): MIP and/or 3D reconstructed images were created by the technologist. Contrast material: OMNIPAQUE 350; Contrast volume: 70 ml; Contrast route: INTRAVENOUS (IV); Other technique: STROKE PROTOCOL was implemented. COMPARISON: No relevant prior studies available. FINDINGS: ANTERIOR CIRCULATION: Right internal carotid artery: Intracranial segment is patent with no significant stenosis or occlusion. No aneurysm. Right middle cerebral artery: No occlusion or significant stenosis. No aneurysm. Right anterior cerebral artery: No occlusion or significant stenosis. No aneurysm. Left internal carotid artery: Intracranial segment is patent with no significant stenosis. No aneurysm. Left middle cerebral artery: No occlusion or significant stenosis. No aneurysm. Left anterior cerebral artery: No occlusion or significant stenosis. No aneurysm. POSTERIOR CIRCULATION: Right vertebral artery: No occlusion or significant stenosis. No aneurysm. Left vertebral artery: No occlusion or significant stenosis. No aneurysm. Basilar artery: No occlusion or significant stenosis. No aneurysm. Right posterior cerebral artery: No occlusion or significant stenosis. No aneurysm. Left posterior cerebral artery: No occlusion or significant stenosis. No aneurysm. HEAD: Brain: No intracranial hemorrhage. There is global parenchymal volume loss. Periventricular white matter hypoattenuation is nonspecific but most likely due to small vessel disease. No evidence of acute territorial infarct or cerebral edema. No mass effect or midline shift. Cerebral ventricles: Prominent ventricles likely secondary to volume loss. Bones: Unremarkable. No acute fracture. Paranasal sinuses: Visualized sinuses are normal. No fluid levels. Mastoid air cells: Visualized mastoids are normal. No mastoid effusion. Soft tissues: Unremarkable. IMPRESSION: No acute intracranial findings. ASSESSMENT: ASPECTS ([place] Stroke Program Early CT Score) is 10. PROCEDURE INFORMATION: Exam: CTA Neck Without And With Contrast Exam date and time: 05/25/2024 5:47 PM Age: 88 years old Clinical indication: Stroke-like symptoms; Other: Dysmetria, dizziness/vertigo, ? stroke TECHNIQUE: Imaging protocol: Computed tomographic angiography of the neck without and with contrast. Exam focused on the cervical segments of the vasculature. 3D rendering (Not supervised by radiologist): MIP and/or 3D reconstructed images were created by the technologist. Contrast material: OMNIPAQUE 350; Contrast volume: 70 ml; Contrast route: INTRAVENOUS (IV); COMPARISON: No relevant prior studies available. FINDINGS: Right common carotid artery: No stenosis. No dissection or occlusion. Right internal carotid artery: Small amount of plaque at the origin of the right internal carotid artery with tiny ulceration along its proximal portion. Minimal stenosis. Right external carotid artery: No occlusion or stenosis of the origin. Left common carotid artery: No stenosis. No dissection or occlusion. Left internal carotid artery: No stenosis of the extracranial segment. No dissection or occlusion. Left external carotid artery: No occlusion or stenosis of the origin. Right vertebral artery: No stenosis. No dissection or occlusion. Left vertebral artery: No stenosis. No dissection or occlusion. Soft tissues: Normal. No significant soft tissue swelling. Bones/joints: No acute fracture. Pleural spaces: Biapical pleural-parenchymal scarring and emphysema. IMPRESSION: Small amount of plaque at the origin of the right internal carotid artery with tiny ulceration along its proximal portion. Minimal stenosis. REFERENCES: NASCET CRITERIA. The degree of stenosis in the cervical segment of the internal carotid artery is based on NASCET criteria. Normal is no stenosis. Mild is less than 50% stenosis. Moderate is 50-69% stenosis. Severe is 70% to 99% stenosis. Total occlusion is no detectable patent lumen. Dictated and Authenticated by: Mickey Lee MD. Ordering:DANAY Rehman MD
[2024-05-25 18:30] LABS: ALT 30 U/L (14-59); AST 27 U/L (15-37); Albumin 3.9 g/dL (3.4-5.0); Alkaline Phosphatase 139 U/L (46-116); Anion Gap 7.7 mmol/L (3-11); BUN 30 mg/dL (7-18); CO2 27.3 mmol/L (21.0-32.0); CREATININE 1.1 mg/dL (0.55-1.02); Calcium 9.3 mg/dL (8.5-10.1); Chloride 105 mmol/L (98-107); Estimated GFR 48.94 (mL/min/1.73m2); Glucose 106 mg/dL (74-106); Lipase 38 U/L (<78); Potassium 4.4 mmol/L (3.5-5.1); Sodium 140 mmol/L (136-145); TSH (W/Ref FT4) 2.38 uIU/mL (0.36-3.74); Total Protein 7.6 g/dL (6.4-8.2); Troponin I 7 ng/L (<or=51)
[2024-05-25] MEDS: Labetalol 100 MG/20 ML VIAL 20 MG IVP (18:45)
[2024-05-25 19:16] LABS: Troponin I 16 ng/L (<or=51)
[2024-05-25 19:43] LABS: Bilirubin Negative (Negative); Blood Negative (Negative); Clarity Clear (Clear); Glucose Negative (Negative); Ketones Negative (Negative); Leukocyte Esterase Trace (Negative); Nitrite Negative (Negative); Specific Gravity 1.015 (1.005-1.025); Urobilinogen 0.2 mg/dL (Up to 0.2)
[2024-05-25] MEDS: Carvedilol 6.25 MG TAB PO (19:52)
--- NOTE | 2024-05-25 19:56 | HPE_ITS ---
Date of service: 05/25/24 Time of Service: 19:56 Assessment and Plan Assessment and plan (1) Transient ischemic attack: Start date: 05/25/24 Status: Acute Assessment and plan: This is an 88-year-old lady presenting with neurological symptoms possibly more encephalopathic than focal with a feeling that she was outside her body though there was some neglect. There is no mention of focal motor deficits. Her blood pressure was controlled with 1 dose of labetalol and she will have permissive hypertension while in the evaluating her TIA with updated echocardiogram with bubble study, MRI of the brain and PT/OT/SP. After she was admitted to the floor, further history was given that she excellently ate some brownies with mushrooms that were for her who has anxiety and Parkinson's disease. This was brought to the house by her son. Was in control advised simple observation with no interventions. She will still have further evaluation for possible TIA with a significant history. Also of note, her cardiac rhythm reveals atrial fibrillation which is a new rhythm issue with patient on subcu heparin for DVT prophylaxis but not currently on anticoagulation. She was loaded with aspirin and Plavix and will continue both having been on baby aspirin prior to this event. There are some changes in the right internal carotid which needs further evaluation with MRI of the brain. Patient is a DNR/DNI. (2) Atrial fibrillation with controlled ventricular rate: Start date: 05/26/24 Status: Acute Assessment and plan: New onset with normal rate confirmed by EKG. Should consider anticoagulation long-term. (3) Hypertensive crisis: Start date: 05/25/24 Status: Acute Assessment and plan: There is some blood pressure was in the range of 250 which is markedly elevated may be causing some hypertensive encephalopathy though this to be interpreted as possible TIA. Permissive hypertension within reason while further evaluation of TIA was updated cardiac monitoring, echocardiogram with bubble study and MRI of the brain. She also had PT/OT and speech therapy. (4) Essential hypertension: Status: Chronic Assessment and plan: Chronic on carvedilol with losartan/HCTZ which will be continued with caution having permissive hypertension given possible TIA but also wanted to prevent moderately elevated systolic blood pressure possibility of hypertensive encephalopathy upon presentation. (5) PFO (patent foramen ovale): Status: Chronic Assessment and plan: Diagnosed at [facility]/27/[place]. This will be confirmed with echocardiogram and bubble study updated. She has no history of CHF with last echocardiogram June 2023 revealing preserved left ventricular ejection fraction at 55%, functioning bioprosthetic aortic valve and no mention of PA pressures being elevated. She is on carvedilol.. (6) Hyperlipidemia: Status: Chronic Assessment and plan: Continue high dose Lipitor. History of Present Illness History of Present Illness Chief Complaint: Acute confusional state Narrative: This is an 88-year-old female patient has a history of previous TIAs presenting to the ED with acute onset of confusion with the sensation that she was outside her body and during the neurological exam by the ED provider, she had some neglect but nothing focal. [facility]rology was consulted and she had an NIH stroke scale score of 0 with no symptoms but recommendations were to admit for observation and loading with Plavix and aspirin, follow-up echocardiogram with cardiac monitoring during her stay and follow-up MRI when available. She did have a small ulceration at the proximal aspect of the right internal carotid but no stenosis or acute findings by CTA of the head and neck. Teleneurology did not recommend tPA with the patient outside the window with her symptoms beginning hours to days prior to presentation and resolved in the ED. She also may have hypertensive encephalopathy with improvement of her symptoms by treating her systolic blood pressure from 250 to around 170 using IV labetalol 1 dose. We should have permissive hypertension during her observation for TIA. She does not appear to have any other active issues with her current medical problems stable. She does live with her and family has been seeing her at her home. She is a DNR/DNI. After patient was brought to the floor further history was given that the son brought some brownies with mushrooms to the patient's home which were for her who has anxiety with Parkinson disease. The patient did ask that the ED is mushrooms and it was thought that this was causing her out of body event which has cleared. Poison control has had observation for this problem was appropriate with no interventions indicated. Also while the patient was being monitored on laboratory monitor, she had atrial fibrillation with a controlled rate which is a new rhythm for her. She states that she does take a baby aspirin daily at home but is never been on anticoagulation. She is on heparin for DVT prophylaxis presently. Review of Systems Narrative: 13 point review of systems otherwise unrevealing or stable. PFSH All Active Problems (Updated 05/26/24 @ 07:17 by Jn Burnett) Atrial fibrillation with controlled ventricular rate (Acute) Hypertensive encephalopathy (Acute) Hyperlipidemia (Chronic) Hypertensive crisis (Acute) COVID-19 (Acute ~06/05/22) Essential hypertension (Chronic 04/12/13) check some BPs at home Ascending aorta dilation (Acute) H/O heart valve replacement with bioprosthetic valve (Acute) Atherosclerosis of [place] coronary artery (Acute 01/09/13) CABG TO SINGLE VESSEL-03/08 Glaucoma (Acute 07/16/12) Right arm pain (Acute) Left leg pain (Acute) Advanced care planning/counseling discussion (Acute) Aortic valve stenosis (Acute) Abnormal mammography (Acute 04/27/07) PFO (patent foramen ovale) (Chronic) 12/27/18 [facility] [place] Aortic valve replaced (Acute 07/17/13) 03/08-tissue valve Transient ischemic attack (Acute 07/11/12) 01/06 07/12 Tietze's disease (Acute) Sensorineural hearing loss, 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) Denies 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 Constipation (Acute) Cholelithiasis without obstruction (Acute) Atrophic vaginitis (Acute) Anxiety (Acute) Surgical History History of total left hip arthroplasty (03/15/22) History of heart valve replacement Aortic valve 2011 Status post cardiac catheterization Cholecystectomy (~1995) Coronary Artery Bypass Gaft (CABG) SINGLE VESSEL Family History Mother , age 73 Pancreatic cancer Father , age 96 Stroke Hypertension Heart disease Maternal Grandfather , age 64 Heart disease Paternal Grandfather , age 69 Parkinson disease Paternal Grandmother , age 80 Heart disease Maternal Grandmother , age 76 No problems noted. Sister Dementia Hypertension Brother Hypertension Brother Hypertension Brother Hypertension Son No problems noted. Son No problems noted. Son No problems noted. Social History Smoking/Tobacco Use Status: Never Second Hand Exposure: No Smoking risk assessment performed?: Yes Alcohol Intake: current Alcohol Intake frequency: holidays/special occasions only Alcohol type: wine Drug use: Never Substance use type: does not use Counseling given: No Adopted: No Caregiver/Support person: No Household members: spouse Housing: house Number of Children: 3 number of grandchildren: 6 Communication Needs: Corrective Lenses Education Level: college Details: BS Do you need help understanding health information?: Never current occupation: retired Pets and animals: No Sexually active: No Do you think of yourself as: straight/heterosexual Current gender identity: female What is your relationship status?: How often do you talk on the phone with friends or family?: decline to answer How often do you get together with friends or relatives?: three or more times per week How often do you attend buddhism or methodist services?: decline to answer Do you belong to any clubs or organized social groups?: no Panel score (0-1 are the most socially isolated patients): 2 What type of physical activity do you participate in: bicycling Duration: 15-30 minutes/day Frequency: daily Stephanie/Restorationist: Synagogue Special stephanie needs: No Seatbelt use: always Drive intox or ride w/[employer] dedicated truck 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: No Firearms in home: No Do you feel safe at home: Yes Do you feel safe in your relationship?: Yes Victim of physical abuse: No Victim of emotional abuse: No Victim of sexual abuse: No Would you like helpful sources: No Additional Social history: lives with , son if visiting for [place] Meds Allergies and Home Medications Allergies Allergy/AdvReac Type Severity Reaction Status Date / Time No Known Allergies Allergy Verified 07/11/23 10:14 Home Medications ?Medication ?Instructions ?Recorded ?Confirmed ?Type latanoprost 0.005 % eye drops 1 drp OU QPM ##1 08/20/12 05/25/24 History (Xalatan) dorzolamide 2 % eye drops 1 drp OU BID 09/22/15 05/25/24 History cholecalciferol (vitamin D3) 25 1,000 unit PO DAILY 04/05/17 05/25/24 History mcg (1,000 unit) tablet carvedilol 6.25 mg tablet 6.25 mg PO BID #180 tabs 05/23/23 05/25/24 Rx losartan 100 1 tab PO DAILY #90 tabs 10/04/23 05/25/24 Rx mg-hydrochlorothiazide 12.5 mg tablet atorvastatin 40 mg tablet 40 mg PO DAILY #90 tab-caps 03/14/24 05/25/24 Rx brimonidine 0.2 % eye drops 1 drp ophthalmic (eye) BID 05/25/24 05/25/24 History Exam Narrative Exam Narrative: General: Patient appears appropriate for age, alert and oriented x 3 and in no acute distress. HEENT: Normocephalic, eyes with pupils equal and react to light symmetrically, extraocular movement intact and sclera anicteric. Oropharynx with 1 mucosa and fair dentition. Neck: Supple without JVD. Back: Kyphotic without CVA tenderness. Lungs: Fair aeration clear to auscultation percussion. Breast: Exam deferred. Heart: Irregularly irregular rhythm with normal rate. No appreciable murmur or gallop. Well-healed sternal scar. Abdomen: Scaphoid contour, soft and nontender to palpation with no palpable hepatosplenomegaly. Bowel sounds positive all quadrants. Chest/rectal: Exam deferred Extremities: Without clubbing, cyanosis or pitting edema. Capillary refill normal. Skin: Normal color, warm and dry. Neuro: Cranial nerves II through XII gross intact, no focalized motor deficits. No tremors. Psych: Normal affect and mood. No abnormal thought processes. Remote and recent memory intact. Results Imaging Imaging Studies: Exam: CTA Head Without And With Contrast, Arteriography Exam date and time: 05/25/2024 5:47 PM Age: 88 years old Clinical indication: Stroke-like symptoms; Other: Dysmetria, dizziness/vertigo, ? stroke COMPARISON: No relevant prior studies available. FINDINGS: ANTERIOR CIRCULATION: Right internal carotid artery: Intracranial segment is patent with no significant stenosis or occlusion. No aneurysm. Right middle cerebral artery: No occlusion or significant stenosis. No aneurysm. Right anterior cerebral artery: No occlusion or significant stenosis. No aneurysm. Left internal carotid artery: Intracranial segment is patent with no significant stenosis. No aneurysm. Left middle cerebral artery: No occlusion or significant stenosis. No aneurysm. Left anterior cerebral artery: No occlusion or significant stenosis. No aneurysm. POSTERIOR CIRCULATION: Right vertebral artery: No occlusion or significant stenosis. No aneurysm. Left vertebral artery: No occlusion or significant stenosis. No aneurysm. Basilar artery: No occlusion or significant stenosis. No aneurysm. Right posterior cerebral artery: No occlusion or significant stenosis. No aneurysm. Left posterior cerebral artery: No occlusion or significant stenosis. No aneurysm. HEAD: Brain: No intracranial hemorrhage. There is global parenchymal volume loss. Periventricular white matter hypoattenuation is nonspecific but most likely due to small vessel disease. No evidence of acute territorial infarct or cerebral edema. No mass effect or midline shift. Cerebral ventricles: Prominent ventricles likely secondary to volume loss. Bones: Unremarkable. No acute fracture. Paranasal sinuses: Visualized sinuses are normal. No fluid levels. Mastoid air cells: Visualized mastoids are normal. No mastoid effusion. Soft tissues: Unremarkable. IMPRESSION: No acute intracranial findings. ASSESSMENT: ASPECTS ([place] Stroke Program Early CT Score) is 10. PROCEDURE INFORMATION: Exam: CTA Neck Without And With Contrast Exam date and time: 05/25/2024 5:47 PM Age: 88 years old Clinical indication: Stroke-like symptoms; Other: Dysmetria, dizziness/vertigo, ? stroke COMPARISON: No relevant prior studies available. FINDINGS: Right common carotid artery: No stenosis. No dissection or occlusion. Right internal carotid artery: Small amount of plaque at the origin of the right internal carotid artery with tiny ulceration along its proximal portion. Minimal stenosis. Right external carotid artery: No occlusion or stenosis of the origin. Left common carotid artery: No stenosis. No dissection or occlusion. Left internal carotid artery: No stenosis of the extracranial segment. No dissection or occlusion. Left external carotid artery: No occlusion or stenosis of the origin. Right vertebral artery: No stenosis. No dissection or occlusion. Left vertebral artery: No stenosis. No dissection or occlusion. Soft tissues: Normal. No significant soft tissue swelling. Bones/joints: No acute fracture. Pleural spaces: Biapical pleural-parenchymal scarring and emphysema. IMPRESSION: Small amount of plaque at the origin of the right internal carotid artery with tiny ulceration along its proximal portion. Minimal stenosis. Labs 05/26/24 06:05 05/26/24 06:05 Labs: Laboratory Results - last 24 hr 05/25/24 05/25/24 05/25/24 17:39 17:39 17:39 WBC 9.19 RBC 4.45 Hgb 14.2 Hct 42.9 MCV 96 H MCH 31.9 MCHC 33.1 RDW 13.6 Plt Count 144 MPV 11.8 H Immature Gran % 0.3 Neutrophils % 70.4 Lymphocytes % 18.9 Monocytes % 7.7 Eosinophils % 2.3 Basophils % 0.4 Nucleated RBC % 0.0 Absolute Neutrophils 6.46 Absolute Lymphocytes 1.74 Absolute Monocytes 0.71 Absolute Eosinophils 0.21 Absolute Basophils 0.04 VBG Lactate 1.0 Sodium 140 Potassium 4.4 Chloride 105 Carbon Dioxide 27.3 Anion Gap 7.7 BUN 30 H Creatinine 1.1 H Est GFR (CKD-EPI 2020) 48.94 Glucose 106 Calcium 9.3 Magnesium 2.0 Cancelled Total Bilirubin 1.20 H AST 27 ALT 30 Alkaline Phosphatase 139 H Troponin I 7 Cancelled Total Protein 7.6 Albumin 3.9 Lipase 38 TSH 2.38 05/25/24 18:46 WBC RBC Hgb Hct MCV MCH MCHC RDW Plt Count MPV Immature Gran % Neutrophils % Lymphocytes % Monocytes % Eosinophils % Basophils % Nucleated RBC % Absolute Neutrophils Absolute Lymphocytes Absolute Monocytes Absolute Eosinophils Absolute Basophils VBG Lactate Sodium Potassium Chloride Carbon Dioxide Anion Gap BUN Creatinine Est GFR (CKD-EPI 2020) Glucose Calcium Magnesium Total Bilirubin AST ALT Alkaline Phosphatase Troponin I 16 Total Protein Albumin Lipase TSH Last Vital Signs Temp 36.6 C 05/25/24 17:32 Pulse 62 05/25/24 19:36 Resp 24 05/25/24 19:36 BP 191/59 H 05/25/24 19:36 Pulse Ox 97 05/25/24 19:36 Time Spent Time spent with Patient: >75 minutes Time was spent: preparing to see the patient(eg.review tests), obtaining and/or reviewing separately otained hiistory, ordering medications,tests, procedures, indepentently interpreting results, counseling the patient and care coordination
[2024-05-25 19:57] LABS: Bacteria Rare HPF (Negative); C & S Indicated? No; Casts Negative LPF (Negative); Crystals Negative HPF (Negative); Epithelial Cells Rare HPF (Negative); Mucus Negative (Negative); RBC Negative HPF (0-2)
[2024-05-25 20:53] LABS: Source Nasal/Nares
[2024-05-25] MEDS: Clopidogrel 300 MG TAB PO (21:17)
[2024-05-25] MEDS: Aspirin 81 MG CHEW PO (21:17)
--- NOTE | 2024-05-25 21:24 | W.PC.ACHO ---
Registration Status: Primary Language: Preferred Language: ED Information & Data Chief Complaint Dizzy/Sync 05/25/24 17:59 Triage Note earlier this evening pt was 05/25/24 17:32 at rest and felt dizzy/ nauseas. EMS reports systolic over 200 upon arrival. Nausea has subsided but continues to feel dizzy . Pt reports she takes BP meds BID, took this AM but has not taken meds this evening. (Last Reviewed 05/25/24 @ 20:01 by Jn Burnett) History of total left hip arthroplasty (03/15/22) History of heart valve replacement Status post cardiac catheterization Cholecystectomy (~1995) Coronary Artery Bypass Gaft (CABG) Most Recent Vital Signs Temperature 36.6 C 05/25/24 17:32 Temperature Source Oral 05/25/24 17:32 Pulse 62 05/25/24 21:01 Pulse 67 05/25/24 21:01 Respiratory Rate 22 05/25/24 21:01 Respiratory Effort Normal, Non-Labored 05/25/24 17:43 Respiratory Depth Normal 05/25/24 17:43 Respiratory Pattern Normal 05/25/24 17:43 Blood Pressure 134/57 L 05/25/24 21:01 Blood Pressure Mean 82 05/25/24 21:01 Blood Pressure Position Supine 05/25/24 17:32 Pulse Oximetry 93 05/25/24 21:01 Oxygen Delivery Method Room Air 05/25/24 17:32 Oxygen Flow Rate 0 05/25/24 17:32 Pain Level 0 05/25/24 17:32 Comment post Labetolol 05/25/24 18:51 Allergies No Known Allergies Allergy (Verified 07/11/23 10:14) Precautions Isolation Standard precaution 05/25/24 17:43 Active Medications Generic Name Dose Route Start Last Admin Trade Name Freq PRN Reason Stop Dose Admin Carvedilol 6.25 mg 05/25/24 20:00 05/25/24 19:52 Carvedilol 6.25 Mg Tab PO 6.25 mg BID STACEY Administration Iohexol 100 ml 05/25/24 18:00 05/25/24 18:01 Omnipaque 350 Mg/Ml 100 Ml Btl IJ 06/24/24 23:59 100 ml DIRECTED STACEY Administration Labetalol HCl 20 mg 05/25/24 18:45 05/25/24 18:45 Labetalol 100 Mg/20 Ml Vial IVP 20 mg NOW STACEY Administration Sodium Chloride 50 ml 05/25/24 18:00 05/25/24 18:00 Normal Saline - Diluent 50 Ml Vial IJ 50 ml .FOR DI USE STACEY Administration IV IV Catheter Type [Right Peripheral IV Antecubital] IV Catheter Gauge [Right 18 Antecubital] Diagnostics 05/25/24 05/25/24 05/25/24 Range/Units 20:50 19:30 18:46 WBC (4.4-10.8) 10^3/uL RBC (3.93-5.22) 10^6/uL Hgb (11.2-15.7) g/dL Hct (36.0-46.0) % MCV (80-95) fL MCH (27.0-33.0) pg MCHC (32.0-36.0) % RDW (11.7-14.6) % Plt Count (130-400) 10^3/uL MPV (8.0-11.0) fL Immature Gran % % Neutrophils % % Lymphocytes % % Monocytes % % Eosinophils % % Basophils % % Nucleated RBC % (0.0-0.3) % Absolute Neutrophils (1.2-6.7) 10^3/uL Absolute Lymphocytes (1.2-3.4) 10^3/uL Absolute Monocytes (0.1-0.8) 10^3/uL Absolute Eosinophils (0.0-0.7) 10^3/uL Absolute Basophils (0.0-0.2) 10^3/uL VBG Lactate (0.6-1.4) mmol/L Sodium (136-145) mmol/L Potassium (3.5-5.1) mmol/L Chloride (98-107) mmol/L Carbon Dioxide (21.0-32.0) mmol/L Anion Gap (3-11) mmol/L BUN (7-18) mg/dL Creatinine (0.55-1.02) mg/dL Est GFR (CKD-EPI 2020) (mL/min/1.73m2) Glucose (74-106) mg/dL Calcium (8.5-10.1) mg/dL Magnesium (1.8-2.4) mg/dL Total Bilirubin (0.2-1.0) mg/dL AST (15-37) U/L ALT (14-59) U/L Alkaline Phosphatase (46-116) U/L Troponin I 16 (<or=51) ng/L Total Protein (6.4-8.2) g/dL Albumin (3.4-5.0) g/dL Lipase (<78) U/L TSH (0.36-3.74) uIU/mL Urine Color Yellow (Yellow) Urine Clarity Clear (Clear) Urine pH 6.0 (5-8) Ur Specific Macy 1.015 (1.005-1.025) Urine Protein Negative (Neg-Trace) mg/dL Urine Ketones Negative (Negative) mg/dL Urine Blood Negative (Negative) Urine Nitrite Negative (Negative) Urine Bilirubin Negative (Negative) Urine Urobilinogen 0.2 (Up to 0.2) mg/dL Ur Leukocyte Esterase Trace H (Negative) Urine RBC Negative (0-2) HPF Urine WBC 3-5 (0-5) HPF Ur Epithelial Cells Rare (Negative) HPF Urine Crystals Negative (Negative) HPF Urine Bacteria Rare (Negative) HPF Urine Casts Negative (Negative) LPF Urine Mucus Negative (Negative) Ur Culture Indicated? No Urine Glucose Negative (Negative) mg/dL COVID-19 Source Nasal/Nares SARS-CoV-2 (PCR) Pending 05/25/24 05/25/24 05/25/24 Range/Units 17:39 17:39 17:39 WBC 9.19 (4.4-10.8) 10^3/uL RBC 4.45 (3.93-5.22) 10^6/uL Hgb 14.2 (11.2-15.7) g/dL Hct 42.9 (36.0-46.0) % MCV 96 H (80-95) fL MCH 31.9 (27.0-33.0) pg MCHC 33.1 (32.0-36.0) % RDW 13.6 (11.7-14.6) % Plt Count 144 (130-400) 10^3/uL MPV 11.8 H (8.0-11.0) fL Immature Gran % 0.3 % Neutrophils % 70.4 % Lymphocytes % 18.9 % Monocytes % 7.7 % Eosinophils % 2.3 % Basophils % 0.4 % Nucleated RBC % 0.0 (0.0-0.3) % Absolute Neutrophils 6.46 (1.2-6.7) 10^3/uL Absolute Lymphocytes 1.74 (1.2-3.4) 10^3/uL Absolute Monocytes 0.71 (0.1-0.8) 10^3/uL Absolute Eosinophils 0.21 (0.0-0.7) 10^3/uL Absolute Basophils 0.04 (0.0-0.2) 10^3/uL VBG Lactate 1.0 (0.6-1.4) mmol/L Sodium 140 (136-145) mmol/L Potassium 4.4 (3.5-5.1) mmol/L Chloride 105 (98-107) mmol/L Carbon Dioxide 27.3 (21.0-32.0) mmol/L Anion Gap 7.7 (3-11) mmol/L BUN 30 H (7-18) mg/dL Creatinine 1.1 H (0.55-1.02) mg/dL Est GFR (CKD-EPI 2020) 48.94 (mL/min/1.73m2) Glucose 106 (74-106) mg/dL Calcium 9.3 (8.5-10.1) mg/dL Magnesium Cancelled 2.0 (1.8-2.4) mg/dL Total Bilirubin 1.20 H (0.2-1.0) mg/dL AST 27 (15-37) U/L ALT 30 (14-59) U/L Alkaline Phosphatase 139 H (46-116) U/L Troponin I Cancelled 7 (<or=51) ng/L Total Protein 7.6 (6.4-8.2) g/dL Albumin 3.9 (3.4-5.0) g/dL Lipase 38 (<78) U/L TSH 2.38 (0.36-3.74) uIU/mL Urine Color (Yellow) Urine Clarity (Clear) Urine pH (5-8) Ur Specific Macy (1.005-1.025) Urine Protein (Neg-Trace) mg/dL Urine Ketones (Negative) mg/dL Urine Blood (Negative) Urine Nitrite (Negative) Urine Bilirubin (Negative) Urine Urobilinogen (Up to 0.2) mg/dL Ur Leukocyte Esterase (Negative) Urine RBC (0-2) HPF Urine WBC (0-5) HPF Ur Epithelial Cells (Negative) HPF Urine Crystals (Negative) HPF Urine Bacteria (Negative) HPF Urine Casts (Negative) LPF Urine Mucus (Negative) Ur Culture Indicated? Urine Glucose (Negative) mg/dL COVID-19 Source SARS-CoV-2 (PCR) Intake and Output - 24 Hour Total 05/25/24 17:27 thru 05/25/24 17:32 Weight 58.967 kg Falls Risk Assessment History of Falls No History 05/25/24 17:43 Contributing Factors Unstable,Medications 05/25/24 17:43 Ambulatory Aids Independent 05/25/24 17:43 Tubes/Lines None 05/25/24 17:43 Gait Evaluation No gait disturbance 05/25/24 17:43 Cognition No cognitive impairment 05/25/24 17:43 Fall Total Score 6 05/25/24 17:43 Level of Risk Standard/Low Risk 05/25/24 17:43 Problems (Last Reviewed 05/25/24 @ 20:01 by Jn Burnett) Hypertensive encephalopathy (Acute) Hyperlipidemia (Acute) Hypertensive crisis (Acute) Essential hypertension (Chronic 04/12/13) PFO (patent foramen ovale) (Chronic) Transient ischemic attack (Acute 07/11/12) v v v v v v v v v Sending and/or Receiving Nurses: Please use comment section below to note any information pertinent to the patient hand-off not included above. Information / Comments: Report received from: Una MARIANO at [id number]
[2024-05-25 21:25] LABS: COVID-19 PCR Negative (Negative)
--- NOTE | 2024-05-25 23:10 | NUR.NOTE ---
Nursing Note: Called poision control at 2305 in regards to psilocybin ingestion. Based off of pts current state, no further interventions are recommended by poison control.
[2024-05-26 00:16] LABS: *AMPHETAMINES SCREEN URINE Negative (Negative); *BARBITURATES SCREEN URINE Negative (Negative); *BENZODIAZEPINES SCREEN URINE Negative (Negative); Cannabinoids THC Negative (Negative); Cocaine Screen,Urine Negative (Negative); METHADONE URINE SCREEN Negative (Negative); OPIATES URINE SCREEN Negative (Negative)
[2024-05-26 00:18] LABS: Tricyclic Antidepressants Negative (Negative)
[2024-05-26] MEDS: Melatonin 3 MG TAB 6 MG PO (00:54)
--- NOTE | 2024-05-26 03:45 | RT.EKG_ITS ---
APPROVED REPORT Exam: Resting ECG Reason for Exam: Confirmation of rhythm Patient Location: I HR:63 bpm ECG Measurements Heart Rate 63 AXIS [place] [id number] P [id number] QRSd 92 QRS -60 QT 434 T 60 QTc 445 Conclusion Atrial fibrillation...? atrial activity Left anterior fascicular block...axis(240,-40), init forces inf Consider left ventricular hypertrophy...(R aVL+S V3) >2.20mV
[2024-05-26 06:31] LABS: HCT 36.6 % (36.0-46.0); HGB 13.5 g/dL (11.2-15.7); MCH 34.4 pg (27.0-33.0); MCHC 36.9 % (32.0-36.0); MCV 93 fL (80-95); Platelet Count 130 10^3/uL (130-400); RBC 3.93 10^6/uL (3.93-5.22); RDW 13.6 % (11.7-14.6); RDW-SD 46.8 fL; WBC 7.53 10^3/uL (4.4-10.8)
[2024-05-26 06:44] VITALS: BP 95/54; PULSE 67; RESP 16; TEMP 36.5; O2SAT 98
[2024-05-26 06:47] LABS: ALT 20 U/L (14-59); AST 21 U/L (15-37); Albumin 2.8 g/dL (3.4-5.0); Alkaline Phosphatase 105 U/L (46-116); Anion Gap 8.3 mmol/L (3-11); BUN 24 mg/dL (7-18); Bilirubin, Total 0.93 mg/dL (0.2-1.0); CO2 24.7 mmol/L (21.0-32.0); CREATININE 1.1 mg/dL (0.55-1.02); Calcium 8.5 mg/dL (8.5-10.1); Chloride 110 mmol/L (98-107); Estimated GFR 48.94 (mL/min/1.73m2); Glucose 89 mg/dL (74-106); Potassium 3.5 mmol/L (3.5-5.1); Sodium 143 mmol/L (136-145); Total Protein 5.9 g/dL (6.4-8.2)
[2024-05-26 07:58] VITALS: BP 102/60; PULSE 72; RESP 16; TEMP 36.4; O2SAT 99
--- NOTE | 2024-05-26 08:26 | INITIAL_ITS ---
Date of service: 05/26/24 Time of Service: 08:26 Care Management Initial Assmt Initial Assessment Reason for Hospitalization: TIA Functional Status/Living Situation Patient Presentation: Isabel was sitting up in a chair when CM met with her. She was alert and oriented and easily engaged with CM. Isabel was admitted with a possible TIA however all of her symptoms have resolved. Apparently she accidentally ingested a brownie laced with mushrooms intended for someone else. Isabel is to her [place] and lives in a single family home in [facility]. They have 3 sons and 2 daughter s-in-law. One of her sons and his were visiting from [place] [facility] when CM was present. 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 She is independent at baseline nad does not receive any community services. Town of Residence: [place] Resides with: Spouse ( ) Significant Other/Family: Out of area (one son in [place]) Employment Status: Retired Instrumental Activities of Daily Living (ADLs): Independent Medications Medication Management: No Issues/Barriers identified Physical Functioning/Mobility Assistive Device: none Advance Directives Advance Directives: Do you have an Advance Directive: Y 01/20/21 12:40 AD On File at [facility]: Y 01/20/21 12:40 Date Asked 10/16/19 01/20/21 12:40 AD Date Reviewed 05/25/24 05/25/24 17:38 COLST On File at [facility] Yes 01/20/21 12:40 COLST Date Scanned 05/08/19 01/20/21 12:40 Code Status Resuscitation Status DNR/DNI Insurance Coverage/Financial Issues Insurance: Medicare [facility] Medicare Supplement Care Team Visit Care Team Role Provider Type Americo Mills MD Primary Care Provider [facility] STAFF PHYSICIAN Ashley Milligan Other Providers REG OCCUPATIONAL THERAPIST Evelyn Grande, WRECKING CRANE ENGINE OPERATOR Other Providers SPEECH LANGUAGE PATHOLOGIST Marco Anand, WRECKING CRANE ENGINE OPERATOR Other Providers SPEECH LANGUAGE PATHOLOG EDWIGET Sloane Husain Other Providers SPEECH LANGUAGE PATHOLOGIST Anahi Leigh, WRECKING CRANE ENGINE OPERATOR Other Providers SPEECH LANGUAGE PATHOLOGIST Luz Kraft, WRECKING CRANE ENGINE OPERATOR Other Providers SPEECH LANGUAGE PATHOLOGIST Manohar Dutton Other Providers OTHER OLIVER [facility] Provider PHYSICIANS QUANTITATIVE ANALYST DEVELOPER Jn Burnett Admit Provider NON-[facility] STAFF PHYSICIAN Attending Provider Discharge Potential Discharge Needs: PCP F/U Appt Anticipated Barriers to Discharge: None Identified Patient/Family Education Needs: Review discharge instructions, discuss Ask Me Three Transportation: Private vehicle Plan: Anticipate Isabel will be discharged home with no new when medically cleared. She will follow up with her PCP and plan of care and transport with family. CM will follow and continue to support discharge planning. PFSH All Active Problems (Updated 05/26/24 @ 07:17 by Jn Burnett) Atrial fibrillation with controlled ventricular rate (Acute) Hypertensive encephalopathy (Acute) Hyperlipidemia (Chronic) Hypertensive crisis (Acute) COVID-19 (Acute ~06/05/22) Essential hypertension (Chronic 04/12/13) check some BPs at home Ascending aorta dilation (Acute) H/O heart valve replacement with bioprosthetic valve (Acute) Atherosclerosis of [place] coronary artery (Acute 01/09/13) CABG TO SINGLE VESSEL-03/08 Glaucoma (Acute 07/16/12) Right arm pain (Acute) Left leg pain (Acute) Advanced care planning/counseling discussion (Acute) Aortic valve stenosis (Acute) Abnormal mammography (Acute 04/27/07) PFO (patent foramen ovale) (Chronic[place] [facility] [place] valve replaced (Acute 07/17/13) 03/08-tissue valve Transient ischemic attack (Acute 07/11/12) 01/06 07/12 Tietze's disease (Acute) Sensorineural hearing loss, 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) Denies 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 Constipation (Acute) Cholelithiasis without obstruction (Acute) Atrophic vaginitis (Acute) Anxiety (Acute) Surgical History History of total left hip arthroplasty (03/15/22) History of heart valve replacement Aortic valve 2011 Status post cardiac catheterization Cholecystectomy (~1995) Coronary Artery Bypass Gaft (CABG) SINGLE VESSEL Family History Mother , age 73 Pancreatic cancer Father , age 96 Stroke Hypertension Heart disease Maternal Grandfather , age 64 Heart disease Paternal Grandfather , age 69 Parkinson disease Paternal Grandmother , age 80 Heart disease Maternal Grandmother , age 76 No problems noted. Sister Dementia Hypertension Brother Hypertension Brother Hypertension Brother Hypertension Son No problems noted. Son No problems noted. Son No problems noted. Social History Smoking/Tobacco Use Status: Never Second Hand Exposure: No Smoking risk assessment performed?: Yes Alcohol Intake: current Alcohol Intake frequency: holidays/special occasions only Alcohol type: wine Drug use: Never Substance use type: does not use Counseling given: No Adopted: No Caregiver/Support person: No Household members: spouse Housing: house Number of Children: 3 number of grandchildren: 6 Communication Needs: Corrective Lenses Education Level: college Details: BS Do you need help understanding health information?: Never current occupation: retired Pets and animals: No Sexually active: No Do you think of yourself as: straight/heterosexual Current gender identity: female What is your relationship status?: How often do you talk on the phone with friends or family?: decline to answer How often do you get together with friends or relatives?: three or more times per week How often do you attend latter day or mormon services?: decline to answer Do you belong to any clubs or organized social groups?: no Panel score (0-1 are the most socially isolated patients): 2 What type of physical activity do you participate in: bicycling Duration: 15-30 minutes/day Frequency: daily Stephanie/Scientologist: Rastafarian Special stephanie needs: No Seatbelt use: always Drive intox or ride w/intox straddle bug driver: No Firearms in home: No Do you feel safe at home: Yes Do you feel safe in your relationship?: Yes Victim of physical abuse: No Victim of emotional abuse: No Victim of sexual abuse: No Would you like helpful sources: No Additional Social history: lives with , son if visiting for as SDOH(Care Management) Screening Will the Patient Participate in the Screening?: Yes Do you worry about having a steady place to live?: no Problems where you live: no known problems In the past 12 months, have you had to go without electric, gas, oil or water in your home?: no Have you or anyone in your house had to go without enough food to eat?: no Has lack of transportation kept you from medical appointments or from doing things needed for daily living?: no Has anyone in your support network made you feel unsafe for any reason?: no
--- NOTE | 2024-05-26 08:26 | IN_ITS ---
PT Notes Visit Reasons: TIA, Hypertensive crisis with encephalopathy Inpatient Physical Therapy Evaluation Date: 05/26/24 Referring Doctor: Dr. Jn Burnett PT Orders: PT CONSULT: D/C none PT dependent Precautions: Activity to A-fib/question TIA tolerance Patient Profile/Admitting Diagnosis: 88 year-old female presents to ED 05/25/24 by POV/ambulating with a chief complaint of confusion, felt like she was watching herself from outside her body, possible dizziness, not entirely with it per family with last known well around 1515 when family left for the grocery store, with return at 1700 with questionable altered mental status. Quality described as generalized confusion/ brain fog, no radiation to slurred speech, has mild coordination difficulty, denies motor weakness, denies numbness/tingling, denies chest pain, denies floaters/scotoma, denies vomiting, endorses nausea. Severity is described as moderate to severe. Palliating factors include nothing specific attempted. Provoking factors include nothing specific. Events leading up to the incident/Associated Symptoms: Patient endorses history of TIAs however found incidentally after the fact. PMHX: PFSH All Active Problems (Updated 05/26/24 @ 07:17 by Jn Burnett) Atrial fibrillation with controlled ventricular rate (Acute) Hypertensive encephalopathy (Acute) Hyperlipidemia (Chronic) Hypertensive crisis (Acute) COVID-19 (Acute ~06/05/22) Essential hypertension (Chronic 04/12/13) check some BPs at home Ascending aorta dilation (Acute) H/O heart valve replacement with bioprosthetic valve (Acute) Atherosclerosis of [place] coronary artery (Acute 01/09/13) CABG TO SINGLE VESSEL-03/08 Glaucoma (Acute 07/16/12) Right arm pain (Acute) Left leg pain (Acute) Advanced care planning/counseling discussion (Acute) Aortic valve stenosis (Acute) Abnormal mammography (Acute 04/27/07) PFO (patent foramen ovale) (Chronic) 12/27/18 [facility] replaced (Acute 07/17/13) 03/08-tissue valve Transient ischemic attack (Acute 07/11/12) 01/06 07/12 Tietze's disease (Acute) Sensorineural hearing loss, 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) Denies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 Constipation (Acute) Cholelithiasis without obstruction (Acute) Atrophic vaginitis (Acute) Anxiety (Acute) Surgical History History of total left hip arthroplasty (03/15/22) History of heart valve replacement Aortic valve 2010Status post cardiac catheterization Cholecystectomy (~1995) Coronary Artery Bypass Gaft (CABG) SINGLE VESSEL Social History/Home Situation: Lives with in single level dwelling with 3 stairs and railing to enter. Supportive family lives nearby Current Functional Limitations: None Equipment Owned/DME: None Subjective: Isabel states she is feeling much better today. Little sore in her back from sitting posture but otherwise no complaints. Objective: General Observation: Sitting bedside chair with alarm activated. Son and [id number] in room with her Mental Status: Alert and oriented x 4 Pain: 06/07 General Low back Vital Signs: Per nursing ROM: Right Upper Extremity: Within functional limits pain-free Left Upper Extremity: Within functional limits pain-free Right Lower Extremity: Within functional amides pain-free Left Lower Extremity: Within functional mobs pain-free Strength: Right Upper Extremity: 4/5 glenohumeral joint flexion, abduction, elbow flexion and extension. Good manager of network Left Upper Extremity: 4/5 glenohumeral joint flexion, abduction, elbow flexion and extension. Good manager of network Right Lower Extremity: 4/5 hip flexion, seated hip abduction, seated hip adduction. 4+/5 knee extension. 4/5 knee flexion. 4/5 ankle strength in all planes. Left Lower Extremity: 4/5 hip flexion, seated hip abduction, seated hip adduction. 4+/5 knee extension. 4/5 knee flexion. 4/5 ankle strength in all planes. Sensation: Intact sensation light touch bilateral lower extremities Bed Mobility/Transfers: Bed mobility: independent Sit?stand: To front wheel walker independent. Patient also independent in sit to stand transfer without assistive device. Stand?sit: From front wheel walker independent. Patient also independent and stand to sit transfer without assistive device Gait: Ambulated 200 feet front wheeled walker with standby assist. Patient ambulated 150 feet contact-guard no assistive device Balance: Negative Romberg Static Sitting: Normal Dynamic Sitting: Normal Static Standing: Good Dynamic Standing: Good Special Tests: Mobility Limitations Standardized Measure [facility] 6 clicks Basic Mobility Inpatient Short Form: Raw Score: 24 standardized Score: [] CMS Score:0% Informed Consent/Education: Patient instructed in purpose of PT consult and plan of care. Assessment: Patient is an 88 year old female referred to physical therapy services with the diagnosis of atrial fibrillation/question TIA. Patient presents with clinical signs and symptoms consistent with A-fib. No neurologic deficits noted. Patient independent in all functional mobility. Patient tolerated ambulation independent with no assistive device with no loss of balance, sway. Had good terry. Patient does not require formal physical therapy. Patient is assessed as: X Low 39506 [] Moderate 46601 [] High 14269 complexity, based on the following: History: (list): See comorbidities and social history. Examination: (list): See above for functional limitations and impairments. Presentation: X Stable [] Evolving [] Unstable Decision-Making: X Low complexity [] Moderate complexity [] High co mplexity 0 % Disability based on [facility] AM-PAC Plan of Care/Treatment Plan: 1-2x/day, 7 days/week x 1 week. Plan of care has been reviewed with the SHIPPING AND RECEIVING ASSOCIATE providing the service under Physical Therapy direction. Initiate Physical Therapy intervention for strengthening, bed mobility, transfers, gait, stairs, balance training, use of assistive device. DISCHARGE RECOMMENDATIONS: Discharge when cleared medically. [X] Home with no services TREATMENT CODE/TIME: 25 minutes 10:00-10:25 / 61371 Thank you for this referral. Linwood Tovar PT, DPT Disclaimer: This note was created using [employer] voice recognition software. It was reviewed for major content. However, there may be multiple small discrepancies and errors due to the voice recognition aspects of the software.
[2024-05-26] MEDS: Cholecalciferol (Vitamin D3) 1,000 UNIT TAB 1000 UNITS PO (08:52)
[2024-05-26] MEDS: Aspirin 81 MG CHEW PO (08:52)
[2024-05-26] MEDS: Atorvastatin 40 MG TAB 80 MG PO (08:53)
[2024-05-26] MEDS: Normal Saline Flush 10 ML SYR IVP (08:54)
[2024-05-26] MEDS: Carvedilol 6.25 MG TAB PO (08:54)
[2024-05-26] MEDS: Clopidogrel 75 MG TAB PO (08:54)
[2024-05-26 11:02] VITALS: BP 101/52; PULSE 74; RESP 16; TEMP 36.6; O2SAT 94
--- NOTE | 2024-05-26 12:03 | DSE_ITS ---
Date of service: 05/26/24 Time of Service: 12:03 DS: Diagnosis Discharge Diagnosis (1) Transient ischemic attack: Status: Acute (2) Atrial fibrillation with controlled ventricular rate: Status: Acute (3) Hypertensive crisis: Status: Acute (4) Essential hypertension: Status: Chronic (5) PFO (patent foramen ovale): Status: Chronic (6) Hyperlipidemia: Status: Chronic Discharge Plan Disposition Patient Disposition: Home Condition: Good Discharge Details Reason For Visit: TIA, Hypertensive crisis with encephalopathy Admit Date/Time: 05/25/24 20:24 Admit Provider: Jn Burnett Attending Provider: Jn Burnett Primary Care Provider: Americo Mills Hospital Course Hospital Course: 88 yo F with ASCVD, history of open AVR, PFO, h/o TIA x 3 who presented with acute confusion, dizziness, and disassociation associated with initially severe hypertension. She was evaluated by Teleneurology and at that point her NIHSS was 0. CT was negative and CTA showed minimal right ICA stenosis. Initial concern was TIA involving posterior circulation vs hypertensive encephalopathy. She received one dose of labetolol 20mg IV. However her son revealed that she had accidentally taken a high dose of pyschadelic mushroom that was in a chocolate just prior to her presentation. By the next morning her neurologic exam was again totally normal, her blood pressure was low normal, and she was feeling totally fine. It was determined this was likely simply a drug effect. However, on overnight monitoring she developed atrial fibrillation. She was already taking carvedilol and she was rate controlled and without symptoms. Her [id number] Score is 7, and anticoagulation with apixaban was recommended and prescribed along with her 81mg aspirin she has taken since her CABG (this was confirmed though not on PCP or cardiology notes). She reported no history of GI bleed, precautions were reviewed. Her losartan/HCTZ was held for low normal BP on 05/26 am after getting IV labetolol. She should resume her regular medications 05/27. Goal BP is <130/80 if well tolerated. Lipids were draw before discharge, atorvastatin 40mg was continued. Her last LDL was well below 70. We initially recommended staying for MRI and repeat echocardiogram on Monday. However given her symptoms were drug related and she felt so well, we decided to discharge home on hospital day #2. She has follow up with cardiology in May with an echocardiogram planned. She should see her PCP this week after MRI done. Home Meds and New Rx's Prescriptions: New aspirin [Children's Aspirin] 81 mg Tablet,Chewable 81 mg PO DAILY Qty: 0 0RF apixaban 5 mg tablet 5 mg PO BID Qty: 180 3RF lorazepam 0.5 mg tablet 0.5 mg PO DAILY PRN (Reason: anxiety) Qty: 2 0RF Rx Instructions: 1 tablet po prior to MRI, may repeat x 1 after 30 minutes Continued carvedilol 6.25 mg tablet 6.25 mg PO BID Qty: 180 3RF Rx Instructions: must administer with a meal/food latanoprost [Xalatan] 2.5 ML drops 1 drp OU QPM Qty: 1 Rx Instructions: 0.005% cholecalciferol (vitamin D3) 1,000 UNIT tablet 1,000 unit PO DAILY losartan-hydrochlorothiazide 100-12.5 mg tablet 1 tab PO DAILY Qty: 90 3RF atorvastatin 40 mg tablet 40 mg PO DAILY Qty: 90 4RF brimonidine 0.2 % drops 1 drp ophthalmic (eye) BID Patient Comments: INSTILL ONE DROP IN EACH EYE TWO TIMES A DAY Discharge Instructions Instructions: Atrial Fibrillation (DC), Bleeding Precautions Additional Instructions: You had a reaction to psychedelic mushrooms. I would avoid these from now on, even at low doses. We ordered an MRI to make sure we didn't miss a stroke. This should be done in the next few days We did find an abnormal heart rhythm called atrial fibrillation. This does put you at high risk of stroke, about 11% per year. We are prescribing apixaban (Eliquis) to lower this risk. Watch out for bleeding, especially in the stool, when you are taking this. Do not take NSAIDs like iburoprofen or naproxen while you are on this. You should continue the baby aspirin and atorvastatin for your circulation as well. Stand Alone Forms: Nursing Discharge Form Referrals: Americo Mills MD [Primary Care Provider] - (Please call the office to set up a hospital follow up within 10-14 days) Activity:: Activity as Tolerated Equipment/Supplies:: No Equipment Needed Diet:: As Tolerated Discharge Orders Discharge Orders: Discharge Order (Routine); Ordered 05/26/24 Ordered By: Neftaly Contreras Other Ambulatory Orders: MR brain wo (STAT) Timeframe: [id number] Facility: [facility] - Location: DIAGNOSTIC IMAGING Ordered By: Neftaly Contreras Discharge Data Discharge Date/Time-TO BE ENTERED AT DEPARTURE: 05/26/24 12:47 DS: Summary Time Spent with Patient providing and/or coordinating discharge services: Greater than 30 minutes Status at Discharge Functional status at discharge: independent ambulation Overall status at discharge: patient is back to baseline Mental Status: mental status grossly normal Speech and Movement: speech and movement normal Mood: congruent mood Affect: normal affect Quality:SDOH Health Related Social Needs: No Data to Display Exam Narrative Exam Narrative: General: Patient appears appropriate for age, alert and oriented x 4 and in no acute distress. Lungs: CTAB, normal effort Heart: Irregularly irregular rhythm with normal rate. No appreciable murmur or gallop. Well-healed sternal scar. Abdomen: soft and nontender to palpation Extremities: Without clubbing, cyanosis or pitting edema. Capillary refill normal. Neuro: Cranial nerves II through XII intact, no pronator drift, normal FNF/CARLOS/HTS. 5/5 symmetric strength and sensation to light touch in extremities. Toes downgoing. DTRs 2+ symmetric in 4 ext. No tremors. Psych: Normal affect and mood. No abnormal thought processes. Remote and recent memory intact. Psych Mental Status: mental status grossly normal Speech and Movement: speech and movement normal Mood: congruent mood Affect: normal affect DS: Data Vitals/I&O Vitals and I&O: Vital Signs Temperature 36.6 C 05/26/24 11:02 Temperature Source Tympanic 05/26/24 11:02 Pulse 74 05/26/24 11:02 Pulse Rhythm Irregular 05/25/24 21:52 Pulse 65 05/25/24 21:31 Respiratory Rate 16 05/26/24 11:02 Respiratory Effort Normal, Non-Labored 05/25/24 21:52 Respiratory Depth Normal 05/25/24 21:52 Respiratory Pattern Normal 05/25/24 21:52 Blood Pressure 101/52 L 05/26/24 11:02 Blood Pressure Mean 79 05/25/24 21:31 Blood Pressure Position Supine 05/25/24 17:32 Pulse Oximetry 94 05/26/24 11:02 Oxygen Delivery Method Room Air 05/26/24 11:02 Oxygen Flow Rate 0 05/26/24 11:02 Pain Level 0 05/25/24 17:32 Comment RN Notified 05/26/24 06:44 Comment post Labetolol 05/25/24 18:51 Intake & Output 05/25/24 05/26/24 05/26/24 23:59 11:59 23:59 Intake Total 400 / 400 Balance 400 / 400 Weight 60.328 kg 57.9 kg Intake: Oral 400 / 400 Other: Urine Color Yellow Urine Appearance Clear Urine Odor Normal Comment pt voided x1 Data Completed and Pending Labs on day of discharge: Labs from last 24 hours 05/26/24 05/25/24 05/25/24 06:05 20:50 19:30 WBC 7.53 RBC 3.93 Hgb 13.5 Hct 36.6 MCV 93 MCH 34.4 H MCHC 36.9 H D RDW 13.6 Plt Count 130 MPV 12.0 H Immature Gran % Neutrophils % Lymphocytes % Monocytes % Eosinophils % Basophils % Nucleated RBC % Absolute Neutrophils Absolute Lymphocytes Absolute Monocytes Absolute Eosinophils Absolute Basophils VBG Lactate Sodium 143 Potassium 3.5 Chloride 110 H Carbon Dioxide 24.7 Anion Gap 8.3 BUN 24 H Creatinine 1.1 H Est GFR (CKD-EPI 2020) 48.94 Glucose 89 Calcium 8.5 Magnesium Total Bilirubin 0.93 AST 21 ALT 20 Alkaline Phosphatase 105 Troponin I Total Protein 5.9 L Albumin 2.8 L Triglycerides Pending Total Cholesterol Pending LDL Cholesterol, Calc Pending HDL Cholesterol Pending Lipase TSH Urine Color Yellow Urine Clarity Clear Urine pH 6.0 Ur Specific [place] 1.015 Urine Protein Negative Urine Ketones Negative Urine Blood Negative Urine Nitrite Negative Urine Bilirubin Negative Urine Urobilinogen 0.2 Ur Leukocyte Esterase Trace H Urine RBC Negative Urine WBC 3-5 Ur Epithelial Cells Rare Urine Crystals Negative Urine Bacteria Rare Urine Casts Negative Urine Mucus Negative Ur Culture Indicated? No Urine Glucose Negative Urine Opiates Screen Negative Urine Methadone Screen Negative Ur Barbiturates Screen Negative Ur Tricyclics Screen Negative Ur Amphetamines Screen Negative U Benzodiazepines Scrn Negative Urine Cocaine Screen Negative Ur THC Screen Negative COVID-19 Source Nasal/Nares SARS-CoV-2 (PCR) Negative 05/25/24 05/25/24 05/25/24 18:46 17:39 17:39 WBC RBC Hgb Hct MCV MCH MCHC RDW Plt Count MPV Immature Gran % Neutrophils % Lymphocytes % Monocytes % Eosinophils % Basophils % Nucleated RBC % Absolute Neutrophils Absolute Lymphocytes Absolute Monocytes Absolute Eosinophils Absolute Basophils VBG Lactate Sodium Potassium Chloride Carbon Dioxide Anion Gap BUN Creatinine Est GFR (CKD-EPI 2020) Glucose Calcium Magnesium Cancelled Total Bilirubin 1.20 H AST 27 ALT 30 Alkaline Phosphatase 139 H Troponin I 16 Cancelled 7 Total Protein 7.6 Albumin 3.9 Triglycerides Total Cholesterol LDL Cholesterol, Calc HDL Cholesterol Lipase 38 TSH 2.38 Urine Color Urine Clarity Urine pH Ur Specific [place] Urine Protein Urine Ketones Urine Blood Urine Nitrite Urine Bilirubin Urine Urobilinogen Ur Leukocyte Esterase Urine RBC Urine WBC Ur Epithelial Cells Urine Crystals Urine Bacteria Urine Casts Urine Mucus Ur Culture Indicated? Urine Glucose Urine Opiates Screen Urine Methadone Screen Ur Barbiturates Screen Ur Tricyclics Screen Ur Amphetamines Screen U Benzodiazepines Scrn Urine Cocaine Screen Ur THC Screen COVID-19 Source SARS-CoV-2 (PCR) 05/25/24 17:39 WBC 9.19 RBC 4.45 Hgb 14.2 Hct 42.9 MCV 96 H MCH 31.9 MCHC 33.1 RDW 13.6 Plt Count 144 MPV 11.8 H Immature Gran % 0.3 Neutrophils % 70.4 Lymphocytes % 18.9 Monocytes % 7.7 Eosinophils % 2.3 Basophils % 0.4 Nucleated RBC % 0.0 Absolute Neutrophils 6.46 Absolute Lymphocytes 1.74 Absolute Monocytes 0.71 Absolute Eosinophils 0.21 Absolute Basophils 0.04 VBG Lactate 1.0 Sodium 140 Potassium 4.4 Chloride 105 Carbon Dioxide 27.3 Anion Gap 7.7 BUN 30 H Creatinine 1.1 H Est GFR (CKD-EPI 2020) 48.94 Glucose 106 Calcium 9.3 Magnesium 2.0 Total Bilirubin AST ALT Alkaline Phosphatase Troponin I Total Protein Albumin Triglycerides Total Cholesterol LDL Cholesterol, Calc HDL Cholesterol Lipase TSH Urine Color Urine Clarity Urine pH Ur Specific [place] Urine Protein Urine Ketones Urine Blood Urine Nitrite Urine Bilirubin Urine Urobilinogen Ur Leukocyte Esterase Urine RBC Urine WBC Ur Epithelial Cells Urine Crystals Urine Bacteria Urine Casts Urine Mucus Ur Culture Indicated? 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 (Acute) Right arm pain (Acute) Left leg pain (Acute) Advanced care planning/counseling discussion (Acute) Aortic valve stenosis (Acute) Abnormal mammography (Acute 04/27/07) PFO (patent foramen ovale) (Chronic) [place] valve replaced (Acute 07/17/13) 03/08-tissue valve Transient ischemic attack (Acute 07/11/12) 01/06 07/12 Tietze's disease (Acute) Sensorineural hearing loss, 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) Denies 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 Glaucoma (Acute 07/16/12) Essential hypertension (Chronic 04/12/13) check some BPs at home Constipation (Acute) Cholelithiasis without obstruction (Acute) Atrophic vaginitis (Acute) Atherosclerosis of [place] coronary artery (Acute 01/09/13) CABG TO SINGLE VESSEL-03/08 Anxiety (Acute) Surgical History History of total left hip arthroplasty (03/15/22) History of heart valve replacement Aortic valve 2011 Status post cardiac catheterization Cholecystectomy (~1995) Coronary Artery Bypass Gaft (CABG) SINGLE VESSEL Family History Mother , age 73 Pancreatic cancer Father , age 96 Stroke Hypertension Heart disease Maternal Grandfather , age 64 Heart disease Paternal Grandfather , age 69 Parkinson disease Paternal Grandmother , age 80 Heart disease Maternal Grandmother , age 76 No problems noted. Sister Dementia Hypertension Brother Hypertension Brother Hypertension Brother Hypertension Son No problems noted. Son No problems noted. Son No problems noted. Social History Smoking/Tobacco Use Status: Never Second Hand Exposure: No Smoking risk assessment performed?: Yes Alcohol Intake: current Alcohol Intake frequency: holidays/special occasions only Alcohol type: wine Drug use: Never Substance use type: does not use Counseling given: No Adopted: No Caregiver/Support person: No Household members: spouse Housing: house Number of Children: 3 number of grandchildren: 6 Communication Needs: Corrective Lenses Education Level: college Details: BS Do you need help understanding health information?: Never current occupation: retired Pets and animals: No Sexually active: No Do you think of yourself as: straight/heterosexual Current gender identity: female What is your relationship status?: How often do you talk on the phone with friends or family?: decline to answer How often do you get together with friends or relatives?: three or more times per week How often do you attend episcopalian or advent services?: decline to answer Do you belong to any clubs or organized social groups?: no Panel score (0-1 are the most socially isolated patients): 2 What type of physical activity do you participate in: bicycling Duration: 15-30 minutes/day Frequency: daily Stephanie/Baptist: Zoroastrianism Special stephanie needs: No Seatbelt use: always Drive intox or ride w/intox tilt tray driver: No Firearms in home: No Do you feel safe at home: Yes Do you feel safe in your relationship?: Yes Victim of physical abuse: No Victim of emotional abuse: No Victim of sexual abuse: No Would you like helpful sources: No Additional Social history: lives with , son if visiting for xmas Time Spent with Patient Time Spent with Patient: 45-69 minutes Time was spent: preparing to see the patient(eg.review tests), obtaining and/or reviewing separately otained hiistory, ordering medications,tests, procedures, referring, communicating with other health child adolescent care, indepentently interpreting results, counseling the patient and care coordination
[2024-05-26 12:10] LABS: Calculated LDL 33 mg/dL (<100); Cholesterol 104 mg/dL (<200); HDL Cholesterol 65 mg/dL (40-60); Triglyceride 32 mg/dL (<150)
== END 2024-05-26 12:47 | disposition home or self-care (01) ==
LOC: ER 21:03 → MS 21:33
PROVIDERS: Family Medicine; Admitting Provider Family Medicine; Emergency Provider Physician Assistant; PCP Family Medicine; Visit Provider Family Medicine
DX: I67.4 Hypertensive encephalopathy (principal); I16.9 Hypertensive crisis, unspecified; T62.0X1A Toxic effect of ingested mushrooms, accidental (unintentional), initial encounter; I48.91 Unspecified atrial fibrillation; Q21.10 Atrial septal defect, unspecified; I10 Essential (primary) hypertension; E78.2 Mixed hyperlipidemia; Z66 Do not resuscitate; Z79.82 Long term (current) use of aspirin; Z95.3 Presence of xenogenic heart valve; Z86.73 Personal history of transient ischemic attack (TIA), and cerebral infarction without residual deficits; R41.82 Altered mental status, unspecified; I77.810 Thoracic aortic ectasia; I25.10 Atherosclerotic heart disease of native coronary artery without angina pectoris; Z95.1 Presence of aortocoronary bypass graft; H90.3 Sensorineural hearing loss, bilateral; K59.00 Constipation, unspecified; Z96.642 Presence of left artificial hip joint; Z79.899 Other long term (current) drug therapy
CPT/HCPCS: 00123; 36415; 70496; 70498; 80053; 80061; 80307; 83690; 85027; 87635; 93005; 96374; 97161; 99285; 81003; 81015; 83605; 83735; 84443; 84484; 85025; 93010; 99223; 99239; G0378; J1920; J3490

== ENCOUNTER 2024-06-20 12:55 | Outpatient (RCR) | payer MEDICARE, SELFPAY ==
--- NOTE | 2024-06-27 08:28 | W.HOLTRPT ---
Date of service: 06/27/24 Time of Service: 08:28 Holter Monitor Report Referring Provider:: Americo Mills Indications:: Paroxysmal atrial fibrillation Holter Monitor Note: This is a 24-hour Holter monitor Rhythm throughout was sinus with an average heart rate of 66. Minimum was 44, maximum 125 There were rare isolated ventricular ectopic beats. There were occasional premature atrial contractions. There was no atrial fibrillation, no SVT, no pauses greater than 3 seconds, no high-grade AV block No symptoms were reported
== END 2024-06-28 23:59 | disposition home or self-care (01) ==
LOC: CARDOPNVT 12:55
PROVIDERS: PCP Family Medicine; Visit Provider Internal Medicine Cardiovascular Disease
DX: I48.0 Paroxysmal atrial fibrillation (principal)
CPT/HCPCS: 93227; 93225; 93226

== ENCOUNTER 2024-06-27 02:33 | Outpatient (CLI) | payer MEDICARE, SELFPAY ==
--- NOTE | 2024-06-27 14:30 | DI.US_ITS ---
APPROVED REPORT EXAM: Comprehensive 2D, Doppler, and color-flow Echocardiogram Patient Location: Out-Patient [employer] Administrator: Jg Sullivan RDCS (AE) Indications: Check AVR and ascending aorta Conclusion Normal left ventricular chamber size and wall thickness. EF is 60%. Wall motion is normal Normal right ventricular size and function Normal left atrial size. Right atrium is moderately enlarged There is a bioprosthetic aortic valve. Mean gradient is 25 mmHg. There is mild paravalvular regurgi tation Normal mitral valve with mild regurgitation Normal tricuspid valve with mild to moderate regurgitation. Estimated right ventricular systolic pre ssure is 38 mmHg Ascending aorta measures 4.2 cm Wall motion Left Ventricle The left ventricle is normal size. The left ventricular systolic function is normal. The left ventric ular ejection fraction is within the normal range. There is normal left ventricular wall thickness.. There is normal LV segmental wall motion. There is no ventricular septal defect visualized. EF 60% Right Ventricle The right ventricle is normal size. The right ventricular systolic function is normal. Atria The left atrium size is normal. Right atrium is moderately dilated. The interatrial septum is intact with no evidence for an atrial septal defect. Aortic Valve Bioprosthetic aortic valve is present. Mean gradient is 25 mmHg Mild paravalvular regurgitation Mitral Valve The mitral valve is normal in structure. No evidence of mitral valve stenosis. Mild mitral regurgitat ion. Tricuspid Valve The tricuspid valve is normal in structure. There is no tricuspid valve stenosis. Mild to moderate tr icuspid regurgitation. The RVSP is 37.9 mmHg. Pulmonic Valve The pulmonary valve is normal in structure. There is no pulmonic valvular stenosis. There is no pulmo ángel valvular regurgitation. Great Vessels The aortic root is normal in size. The ascending aorta is moderately dilated. Aortic arch is normal i n caliber. IVC is normal in size and collapses >50% with inspiration. Pericardium There is no pericardial effusion. 2D Dimensions IVSD d PLAX 0.98 cm F: 0.6-1.0 Ao Root d 3.30 cm F: 2.7 - 3.3 LVPW d PLAX 1.00 cm F: 0.6 - 1.0 Ao Asc Diam d 4.16 cm F: 2.3 - 3.1 LVID d PLAX 4.45 cm F: 3.8 - 5.2 LVDs 3.03 cm F: 2.2 - 3.5 LV EF Teichholz 60.2 % FS 31.91 % LV EDV (Teich) 90.1 mL LV ESV (Teich) 35.9 mL Stroke Vol Index (Teich) 31.72 M-Mode TAPSE 2.08 cm (M/F) >1.7 Auto EF LV EDV A4C 84.9 mL LV EDV A2C 87.8 mL LV EDV BP 88.1 mL LV ESV A4C 38.2 mL LV ESV A2C 37.8 mL LV ESV BP 39.1 mL LVEF(%) A4C 54.9 % LVEF(%) A2C 57.0 % LVEF(%) BP 55.6 % LV SV A4C 46.6 ml LV SV A2C 50.0 ml LV SV BP 49.0 ml LV CO A4C 3.9 L/min LV CO A2C 3.4 L/min LV CO BP 3.6 L/min HR A4C 82.57 BPM HR A2C 68.31 BPM LV EDV Index (BP) LA Volume LA Length A4C 3.7 cm LA Length A2C 5.7 cm LA Area A4C s 7.93 cm2 LA Area A2C s 16.81 cm2 LA Vol A4C A-L 14.57 mL LA Vol A2C A-L 42.14 mL LA Vol Biplane A-L 30.9 mL LA Vol/BSA A4C A-L LA Vol/BSA A2C A-L LA Vol/BSA BP A-L 18.1 mL/m2 LA Vol A4C MOD 13.8 mL LA Vol A2C MOD 41.2 mL LA Vol BP MOD 28.7 mL RA Volume RA Area A4C 18.7 cm2 RA ESV A4C (A-L) 63.1mL RA Vol/BSA A4C A-L RA Length A4C 4.7 cm RA ESV A4C (MOD) 59.1mL LV Diastology MV E' medial 0.081 (>0.07 m/s) MV E Vmax 0.83 (0.4-1.3 m/s) MV E/E' MED 10.26 (<14) MV A Vmax 0.80 (0.4-1.3 m/s) MV E' lateral 0.117 (>0.1 m/s) E/A Ratio 1.0 MV E/E' LAT 7.12 (<14) MV E' Average 0.099 m/s MV E/E'(average) 8.40 Aortic Valve AoV Vmax 3.44 m/s LVOT Vmax 0.89 m/s AoV Peak Grad 67.0 mmHg LVOT Peak Grad 3.2 mmHg AoV Area (Vmax) 0.94 cm2 LVOT VTI 0.193 m AoV VTI 0.738 m LVOT Mean Grad 2.1 mmHg AoV Mean [place]. 2.39 m/s LVOT SV 69.95 mL AoV Mean Grad 26.2 mmHg LVOT Diam s 2.10 cm AoV Area (VTI) 0.95 cm2 AV Regurg Peak Gr. 47.22 mmHg Velocity Ratio 0.26 AR Decel [place] 3.4m/sec2 AR DT 1358 msec AR PHT 394 msec AR Vmax 4.65 m/s Mitral Valve MV DT 102 (160-240 msec) MV Vmax TIPS 0.84 m/s MV Mean Grad 1.1 (<2mmHg) MV VTI 0.222 m Tricuspid Valve RA Pressure 3.00 mmHg TR Vmax 2.96 m/s TR Peak Grad 34.9 mmHg RVSP (TR) 37.9 mmHg
== END 2024-06-27 02:53 ==
LOC: DI 02:33
PROVIDERS: PCP Family Medicine; Visit Provider Internal Medicine Cardiovascular Disease
DX: Z95.3 Presence of xenogenic heart valve (principal); I25.10 Atherosclerotic heart disease of native coronary artery without angina pectoris
CPT/HCPCS: 93306

== ENCOUNTER → 2024-07-09 09:38 | Outpatient (BNVA) | payer MEDICARE, SELFPAY | PROVIDERS: PCP Family Medicine; Visit Provider Internal Medicine Cardiovascular Disease | DX: I48.0 Paroxysmal atrial fibrillation (principal); I25.10 Atherosclerotic heart disease of native coronary artery without angina pectoris | CPT/HCPCS: 99214; 99213 ==

== ENCOUNTER 2024-12-17 10:40 | Outpatient (CLI) | payer MEDICARE, SELFPAY ==
[2024-12-17 13:02] LABS: Vitamin B12 431 pg/mL (193-986)
[2024-12-18 10:55] LABS: Syphilis Serology (RPR) Negative (Negative)
== END 2024-12-17 10:41 | disposition home or self-care (01) ==
LOC: LOS 10:40
PROVIDERS: PCP Family Medicine; Referring Provider Family Medicine; Visit Provider Family Medicine
DX: D64.9 Anemia, unspecified (principal); R41.3 Other amnesia
CPT/HCPCS: 36415; 82607; 86592

== ENCOUNTER 2025-04-11 11:06 | Day surgery (SDC) | payer MEDICARE, SELFPAY ==
--- NOTE | 2025-04-10 16:59 | ANES.PREOP_ITS ---
General Info Date of Service Date Performed: 04/11/25 Height: 5 ft 6.25 in Weight: 63.616 kg Body Mass Index (BMI): 22.4 Surgical Procedure: Operation Date: 04/11/25 13:40 Proposed Procedure Side Surgeon p Cataract Extraction with IOL Implant w/Glaucoma Stent Right Mitesh Roque MD Meds Allergies and Home Medications Allergies Allergy/AdvReac Type Severity Reaction Status Date / Time No Known Allergies Allergy Verified 04/11/25 11:16 Home Medication Medication Instructions Recorded latanoprost 0.005 % eye drops 1 drp OU QPM ##1 3 (Xalatan) cholecalciferol (vitamin D3) 25 1,000 unit PO DAILY mcg (1,000 unit) tablet brimonidine 0.2 % eye drops 1 drp ophthalmic (eye) BID 05/25/24 aspirin 81 mg chewable tablet 81 mg PO DAILY #0 tabs 1 07/27/23 (Children's Aspirin) carvedilol 6.25 mg tablet 6.25 mg PO BID #180 tabs 12/20 losartan 100 1 tab PO DAILY #90 tabs 08/27 625 mg-hydrochlorothiazide 12.5 mg tablet atorvastatin 40 mg tablet 40 mg PO DAILY #90 tab-caps 03/20/25 Current Visit Medications: Current Medications Generic Name Dose Route Start Last Admin Trade Name Freq PRN Reason Stop Dose Admin Acetaminophen 1,000 mg 04/11/25 06:00 Acetaminophen 500 Mg Tab PO 05/11/25 05:59 Q4H PRN PRN Balanced Salt Solution 500 ml 04/11/25 06:00 Balanced Salt Soln.-Plus 500 Ml Bag OP 05/11/25 05:59 DIRECTED STACEY Miscellaneous Medication 0 ml 04/11/25 06:00 Prednisolone 1%, Moxifloxacin 0.5%, Bromfenac 0.09% 5.6ml Btl OD 05/11/25 05:59 DIRECTED STACEY Miscellaneous Medication 0 ml 04/11/25 06:00 Tropicam./Phenyleph. (1/2.5%) 5 Ml Btl OD 05/11/25 05:59 DIRECTED STACEY Tetracaine HCl 0 ml 04/11/25 06:00 Tetracaine 0.5% 4 Ml Btl OD 05/11/25 05:59 DIRECTED [facility] Active Problems Active Problems: Problem Status Onset Code Forgetfulness Acute R68.89 Atrial fibrillation Chronic I48.91 Atrial fibrillation with controlled ventricular rate Acute I48.91 Hyperlipidemia Chronic E78.5 COVID-19 Acute ~06/05/22 U07.1 Essential hypertension Chronic 04/12/13 I10 Ascending aorta dilation Acute I77.810 H/O heart valve replacement with bioprosthetic valve Acute Z95.3 Atherosclerosis of [place] coronary artery Acute 01/09/13 I25.10 Glaucoma Acute 07/16/12 H40.9 Right arm pain Acute M79.601 Left leg pain Acute M79.605 Advanced care planning/counseling discussion Acute Z71.89 Aortic valve stenosis Acute I35.0 Abnormal mammography Acute 04/27/07 R92.8 PFO (patent foramen ovale) Chronic Q21.1 Aortic valve replaced Acute 07/17/13 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 Sensorineural hearing loss, bilateral Acute 08/11/16 H90.3 Primary malignant neoplasm of skin Acute C44.90 Constipation Acute K59.00 Cholelithiasis without obstruction Acute K80.20 Atrophic vaginitis Acute N95.2 Anxiety Acute F41.9 Medical History Medical History Transient ischemic attack (07/11/12) 01/06 07/12 Surgical History Surgical History History of total left hip arthroplasty (03/15/22) History of heart valve replacement Aortic valve 2011 Status post cardiac catheterization Cholecystectomy (~1995) Coronary Artery Bypass Gaft (CABG) SINGLE VESSEL Tobacco Smoking/Tobacco Use Status: Never Passive smoking exposure: No Second hand exposure: No Alcohol Alcohol Intake: current Alcohol intake frequency: holidays/special occasions only Alcohol type: wine Substance Use Substance use: Never Substance use type: does not use Vital Signs and Lab Results Vital Signs Most Recent Vital Signs in EMR: Temp Pulse Resp BP Pulse Ox 36.4 C L 75 14 148/38 H 100 04/11/25 11:19 04/11/25 11:19 04/11/25 11:19 04/11/25 11:19 04/11/25 11:19 Imaging and Studies Imaging and Studies Study information below may be from another EMR and interpreted by another provider. Please see original notes in EMR for more complete details. EKG Summary: 05/26/24 Conclusion Atrial fibrillation...? atrial activity Left anterior fascicular block...axis(240,-40), init forces inf Consider left ventricular hypertrophy...(R aVL+S V3) >2.20mV Conclusion Sinus rhythm...normal P axis, V-rate 50- 99 Left anterior fascicular block...axis(240,-40), 05/13/21 Echocardiogram Summary: Conclusion Normal left ventricular chamber size and wall thickness. EF is 60%. Wall motion is normal Normal right ventricular size and function Normal left atrial size. Right atrium is moderately enlarged There is a bioprosthetic aortic valve. Mean gradient is 25 mmHg. There is mild paravalvular regurgitation Normal mitral valve with mild regurgitation Normal tricuspid valve with mild to moderate regurgitation. Estimated right ventricular systolic pressure is 38 mmHg Ascending aorta measures 4.2 cm 06/27/24 Conclusion Normal left ventricular wall thickness and chamber size. Estimated ejection fraction is 60 to 65%. Wall motion is normal Normal right ventricular size and systolic function Both atria are moderately dilated There is a bioprosthetic aortic valve replacement there is mild to moderate ao rtic regurgitation. There is mild aortic stenosis. Mean gradient is 19 mmHg, calculated aortic valve area 1.23 cm?? Mild mitral annular calcification. Mild mitral regurgitation Normal tricuspid valve with moderate regurgitation. Estimated right ventricular systolic pressure is 31 mmHg Dilated ascending aorta measuring 4.36 cm 06/11/21 Anesthesia Assessment and Plan Anesthesia History Personal History: No History of Anesthesia Complications Family History: No Family History of Anesthesia Complications Exercise Tolerance Exercise Tolerance: Metabolic Equivalents>4 Pertinent Negatives Pertinent Negatives: No Symptoms of GERD, No Major Cardiovascular Symptoms or Complaints and No Major Pulmonary Symptoms or Complaints Cardiac & Pulmonary Exam Cardiac Exam: Normal S1/S2 Heart Sounds Pulmonary Exam: Clear Bilateral Breath Sounds Implantable Cardiac Device Does patient have a Pacemaker or an ICD?: No Airway Exam Known Difficult Airway: No Mallampati Class: 2 Mouth Opening: Normal (> 3cm) Thyromental Distance: Greater than 3 cm Neck Range of Motion: Limited ROM (Unable to tuen head to the right) Neck Circumference: Normal Teeth Condition: Normal Dentition ASA Classification ASA Score: ASA 3 Emergency Case?: No NPO Status NPO Status: NPO Clears >2 hours, Solids >8 hours Anesthesia Plan Resuscitation Status: Full Code Anesthesia Technique: MAC Anesthesia Airway Planned: Natural Airway Monitors Used: Standard Monitors
[2025-04-11 11:19] VITALS: BP 148/38; PULSE 75; RESP 14; TEMP 36.4; O2SAT 100
[2025-04-11] MEDS: Tropicam./Phenyleph. (1/2.5%) 5 ML BTL OD ×3 (11:33→11:46)
[2025-04-11 11:48] VITALS: BMI 22.4
[2025-04-11] MEDS: Lidocaine 1% Pres-Free 5 ML VIAL (12:44)
[2025-04-11] MEDS: Duovisc Viscoelastic System EACH 1 EACH (12:44)
[2025-04-11] MEDS: Moxifloxacin-PF 1 MG/ML VIAL (12:45)
[2025-04-11] MEDS: Phenylephrine/Lidocaine (15/10) MG/ML 1 ML VIAL (12:45)
[2025-04-11] MEDS: Prednisolone 1%, Moxifloxacin 0.5%, Bromfenac 0.09% 5.6ML BTL OD (12:46)
[2025-04-11] MEDS: Povidone-Iodine Ophth 30 ML BTL (12:46)
[2025-04-11] MEDS: Balanced Salt Soln.-PLUS 500 ML BAG OP (12:46)
[2025-04-11] MEDS: Tetracaine 0.5% 4 ML BTL OD (12:47)
--- NOTE | 2025-04-11 13:14 | W.PM.DSUDISC ---
Date of service: 04/11/25 Discharge Plan Disposition Patient Disposition: Home Discharge Details Attending Provider: Mitesh Roque Primary Care Provider: Americo Mills Home Meds and New Rx's Prescriptions: No Action carvedilol 6.25 mg tablet 6.25 mg PO BID Qty: 180 3RF Rx Instructions: must administer with a meal/food atorvastatin 40 mg tablet 40 mg PO DAILY Qty: 90 4RF latanoprost [Xalatan] 2.5 ML drops 1 drp OU QPM Qty: 1 Rx Instructions: 0.005% cholecalciferol (vitamin D3) 1,000 UNIT tablet 1,000 unit PO DAILY losartan-hydrochlorothiazide 100-12.5 mg tablet 1 tab PO DAILY Qty: 90 3RF brimonidine 0.2 % drops 1 drp ophthalmic (eye) BID Patient Comments: INSTILL ONE DROP IN EACH EYE TWO TIMES A DAY aspirin [Children's Aspirin] 81 mg Tablet,Chewable 81 mg PO DAILY Qty: 0 0RF Discharge Instructions Stand Alone Forms: DSU Post-Op Cataract, Pranay Whipple (DSU), Portal Information Discharge Orders Discharge Orders: Discharge Order (Routine); Ordered 04/11/25 Ordered By: Mitesh Roque DS: Diagnosis Discharge Diagnosis (1) Posterior subcapsular age-related cataract, right eye: Status: Resolved (2) Nuclear age-related cataract, right eye: Status: Resolved
[2025-04-11 13:15] VITALS: BP 115/55; PULSE 66; RESP 16; TEMP 36.7; O2SAT 97
--- NOTE | 2025-04-11 13:15 | ROE_ITS ---
Operative Note Operative Note PRE-OP DIAGNOSIS: Nuclear/posterior subcapsular cataract, right eye Primary open-angle glaucoma, right eye, moderate stage POST-OP DIAGNOSIS: same PROCEDURE: Cataract extraction using phacoemulsification with intraocular lens implant, right eye Insertion of multiple anterior segment aqueous drainage devices (Glaukos iStent inject W) into trabecular meshwork, right eye SURGEON: Mitesh Roque ANESTHESIA TYPE: Local By Surgeon and MAC Refer to Anesthesia Record ESTIMATED BLOOD LOSS: 0 PATHOLOGY: none sent COMPLICATIONS: None Patient was transported to: same day Patient's condition: stable Implants: Ignacio Clareon [id number] Indications: Progressive decreased vision due to cataract, right eye Primary open-angle glaucoma, right eye Procedure Description: CATARACT SURGERY OPERATIVE REPORT PREOPERATIVE DIAGNOSIS: 1. Nuclear/posterior subcapsular cataract, right eye 2. Primary open-angle glaucoma, right eye, moderate stage POSTOPERATIVE DIAGNOSIS: Same OPERATION: 1. Cataract extraction using phacoemulsification with posterior chamber intraocular lens implant, right eye. 2. Insertion of multiple anterior segment aqueous drainage devices (Glaukos iStent inject W) into trabecular meshwork, right eye IOL: IOL Ignacio Clareon [id number] intraocular lens IOL Power: + 18.0 diopters IOL Serial Number: [id number] Optic Diameter: 6.0mm Haptic/Overall Diameter: 13.0mm PHACO INFO: Ignacio Centurion Vision System with OZil and Active Fluidics Cumulative Dispersed Energy (CDE): 16.15 seconds TRABECULAR MICRO-BYPASS STENT INFO: Glaukos iStent inject x 3 Reference Number: [id number] Serial Number: [id number] SURGEON: Mitesh Roque MD, ARJUN ANESTHESIA: Monitored Anesthesia Care (MAC), with local sub-tenon's anesthetic infiltration COMPLICATIONS: None SPECIMENS: None INDICATIONS FOR PROCEDURE: The patient is an 89-year-old lady with history of diminished visual acuity in her right eye secondary to the development of nuclear/posterior subcapsular cataract. She is significantly symptomatic that she desires cataract surgery and attempt to improve and maximize her vision. She also has a history of primary open-angle glaucoma, moderate stage, controlled on 2 medications. The option of minimally invasive glaucoma surgery at the time of cataract surgery was offered to the patient and she wished to proceed with this as well. She is chronically anticoagulated, so an incisional procedure is not ideal. See office notes for detailed information. PROCEDURE: The correct surgical eye was identified and marked as the right eye and the pupil was dilated in the preoperative area using mydriatics and cycloplegics. The dilated pupil size was 5.0 mm. Oral sedation was administered in the form of an Imprimis MKO Melt (midazolam 3mg/ketamine 25mg/ondansetron 2mg). The patient was brought to the operating room where cardiopulmonary monitoring was instituted and surgical time-out was performed, confirming the correct operative eye and IOL power. Topical anesthesia was administered and ophthalmic povidone-iodine 5% was instilled into the conjunctival fornices. The armando-ocular area was prepped with Betadine 10% solution and draped in the usual sterile fashion for intraocular surgery, including an aperture drape. A Tegaderm transparent film dressing was cut in half and used to cover the lashes and lid margins. Care was taken to sequester the lashes and lid margins under the Tegaderm dressing. A lid speculum was placed between the lids of the operative eye and the Ignacio LuxOR Revalia operating microscope was maneuvered into position. Danielle scissors were then used to make a conjunctival buttonhole approximately 6mm posterior to the limbus in the inferonasal quadrant. Blunt dissection was carried out to expose bare sclera, and a blunt-tipped sub-tenon’s anesthesia cannula was introduced and passed posteriorly along the globe where non- preserved plain lidocaine was injected into posterior sub-Tenon’s space. A sideport knife was used to make a paracentesis port. Intraocular phenylephrine/lidocaine was injected into the anterior chamber. The anterior chamber was then filled with viscoelastic. A keratome knife was used to construct a 2-plane clear corneal tunnel extending 2.0mm into clear cornea. A flap was raised on the anterior capsule and capsulorhexis forceps were used to complete a continuous curvilinear capsulorhexis of 5.0 mm. Balanced salt solution was then used to perform cortical cleaving hydrodissection and nuclear hydrodelineation until the lens could be freely rotated within the capsular bag. The lens nucleus was then disassembled and removed within the capsular bag and iris plane using phacoemulsification. Residual cortical material was removed using the irrigation/aspiration handpiece. The posterior capsule was carefully polished to remove as much residual lens epithelial cells as safely possible. The capsular bag was then inflated and the anterior chamber deepened with cohesive viscoelastic. The lens implant described above was inserted into the capsular bag using the pre-loaded Ignacio Autonome Injector. A Kuglen hook was used to dial the IOL into position. The anterior chamber was then slightly over-filled with viscoelastic. The microsope and the patient's head were tilted into the ideal position for viewing of the anterior chamber angle. Viscoelastic was placed on the cornea followed by a surgical gonionlens, and the anterior chamber angle landmarks were identified. The PLC Systems [id number] Systemst inject Infinite handpiece was introduced under direct visualization.. The trocar was advanced through the central portion of the trabecular meshwork and into the back wall of Schlemm's canal in the inferonasal quadrant, with care taken to ensure the micro-insertion tube was perpendicular to the trabecular meshwork. The trabecular meshwork was lightly dimpled and the stent was injected without difficulty. The same procedure was then performed in the superiornasal quadrant. The same procedure was then performed in the nasal quadrant. The stents were then examined and noted to be in good position within the trabecular meshwork. A moderate amount of blood reflux was present through the stent at the 3 o'clock position. The microscope and the patients head were returned to the normal coaxial position. Viscoelatic was then removed from the anterior chamber using the I/A handpiece. The lens implant was noted to center nicely within the capsular bag. The incisions were stromally hydrated, and the anterior chamber was reformed using BSS. Then 0.5cc of moxifloxacin 1.0mg/ml were injected into the capsular bag and anterior chamber. The incisions were checked with a Weck spear and found to be secure. Several drops of ophthalmic povidone-iodine 5% were then applied to the eye followed by two drops of Imprimis combination prednisolone/moxifloxacin/nepafenac solution. The drapes were removed and a clear plastic protective eye shield was placed over the eye. The patient was then returned to Same Day Surgery in stable condition. Date of Procedure: 04/11/25
--- NOTE | 2025-04-11 13:40 | W.ANESPOSTOP ---
Postoperative Evaluation Date, Time and Location Date Performed: 04/11/25 Time Performed: 13:15 Patient Location: Day Surgery Unit Vital Signs Most Recent Imported Vital Signs: Most Recent Vital Signs Temp Pulse Resp BP Pulse Ox 36.7 C 66 16 115/55 L 97 04/11/25 13:15 04/11/25 13:15 04/11/25 13:15 04/11/25 13:15 04/11/25 13:15 Pain Score Most Recent Pain Score: Most Recent Pain Score Pain Level 0 04/11/25 13:15 Assessment Mental Status: Awake (Alert & Oriented to Patient Baseline) Airway and Respiratory Function: Patent airway with normal (patient baseline) respiratory exam Cardiovascular Function: Hemodynamically Stable Hydration Status: Adequately Hydrated Nausea & Vomiting: No Nausea or Vomiting Pain: Pt. Denies Any Pain Peripheral Nerve Block: Patient did not receive a nerve block
[2025-04-11 13:41] VITALS: BP 112/47; PULSE 74; RESP 16; TEMP 36.3; O2SAT 98
== END 2025-04-11 14:03 | disposition home or self-care (01) ==
LOC: SUR 11:07
PROVIDERS: PCP Family Medicine; Visit Provider Ophthalmology
PROC: (CPT 66991; principal; 2025-04-11 13:30)
DX: H25.11 Age-related nuclear cataract, right eye (principal); H25.041 Posterior subcapsular polar age-related cataract, right eye; H40.1112 Primary open-angle glaucoma, right eye, moderate stage
CPT/HCPCS: 66991; 00123; V2632; J2003

== ENCOUNTER 2025-04-18 06:12 | Day surgery (SDC) | payer MEDICARE, SELFPAY ==
[2025-04-18] MEDS: Tropicam./Phenyleph. (1/2.5%) 5 ML BTL OS ×3 (06:22→06:41)
[2025-04-18 06:30] VITALS: BP 160/44; PULSE 73; RESP 14; TEMP 36.2; O2SAT 97
--- NOTE | 2025-04-18 07:16 | ANES.PREOP_ITS ---
General Info Date of Service Date Performed: 04/18/25 Height: 5 ft 6.25 in Weight: 64.4 kg Body Mass Index (BMI): 22.7 Surgical Procedure: Operation Date: 04/18/25 07:40 Proposed Procedure Side Surgeon p Cataract Extraction with IOL Implant Left Mitesh Roque MD Meds Allergies and Home Medications Allergies Allergy/AdvReac Type Severity Reaction Status Date / Time No Known Allergies Allergy Verified 04/18/25 06:34 Home Medication Medication Instructions Recorded latanoprost 0.005 % eye drops 1 drp OU QPM ##1 3 (Xalatan) cholecalciferol (vitamin D3) 25 1,000 unit PO DAILY mcg (1,000 unit) tablet brimonidine 0.2 % eye drops 1 drp ophthalmic (eye) BID 05/25/24 aspirin 81 mg chewable tablet 81 mg PO DAILY #0 tabs 1 07/27/23 (Children's Aspirin) carvedilol 6.25 mg tablet 6.25 mg PO BID #180 tabs 12/20 losartan 100 1 tab PO DAILY #90 tabs 08/2725 mg-hydrochlorothiazide 12.5 mg tablet atorvastatin 40 mg tablet 40 mg PO DAILY #90 tab-caps 03/20/25 Current Visit Medications: Current Medications Generic Name Dose Route Start Last Admin Trade Name Freq PRN Reason Stop Dose Admin Acetaminophen 1,000 mg 04/18/25 06:00 Acetaminophen 500 Mg Tab PO 05/18/25 05:59 Q4H PRN PRN Balanced Salt Solution 500 ml 04/18/25 06:00 Balanced Salt Soln.-Plus 500 Ml Bag OP 05/18/25 05:59 DIRECTED STACEY Miscellaneous Medication 0 ml 04/18/25 06:00 Prednisolone 1%, Moxifloxacin 0.5%, Bromfenac 0.09% 5.6ml Btl OS 05/18/25 05:59 DIRECTED STACEY Miscellaneous Medication 0 ml 04/18/25 06:00 04/18/25 06:41 Tropicam./Phenyleph. (1/2.5%) 5 Ml Btl OS 05/18/25 05:59 1 drp DIRECTED STACEY Administration Tetracaine HCl 0 ml 04/18/25 06:00 Tetracaine 0.5% 4 Ml Btl OS 05/18/25 05:59 DIRECTED [facility] Active Problems Active Problems: Problem Status Onset Code Posterior subcapsular age-related cataract of left eye Acute H25.042 Nuclear age-related cataract, left eye Acute H25.12 Primary open-angle glaucoma, left eye, moderate stage Acute H40.1122 Posterior subcapsular age-related cataract, right eye Resolved H25.041 Nuclear age-related cataract, right eye Resolved H25.11 Primary open-angle glaucoma, right eye, moderate stage Chronic H40.1112 Forgetfulness Acute R68.89 Atrial fibrillation Chronic I48.91 Atrial fibrillation with controlled ventricular rate Acute I48.91 Hyperlipidemia Chronic E78.5 COVID-19 Acute ~06/05/22 U07.1 Essential hypertension Chronic 04/12/13 I10 Ascending aorta dilation Acute I77.810 H/O heart valve replacement with bioprosthetic valve Acute Z95.3 Atherosclerosis of [place] coronary artery Acute 01/09/13 I25.10 Glaucoma Acute 07/16/12 H40.9 Right arm pain Acute M79.601 Left leg pain Acute M79.605 Advanced care planning/counseling discussion Acute Z71.89 Aortic valve stenosis Acute I35.0 Abnormal mammography Acute 04/27/07 R92.8 PFO (patent foramen ovale) Chronic Q21.1 Aortic valve replaced Acute 07/17/13 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 Sensorineural hearing loss, bilateral Acute 08/11/16 H90.3 Primary malignant neoplasm of skin Acute C44.90 Constipation Acute K59.00 Cholelithiasis without obstruction Acute K80.20 Atrophic vaginitis Acute N95.2 Anxiety Acute F41.9 Medical History Medical History Transient ischemic attack (07/11/12) 01/06 07/12 Surgical History Surgical History History of total left hip arthroplasty (03/15/22) History of heart valve replacement Aortic valve 2011 Status post cardiac catheterization Cholecystectomy (~1995) Coronary Artery Bypass Gaft (CABG) SINGLE VESSEL Tobacco Smoking/Tobacco Use Status: Never Passive smoking exposure: No Second hand exposure: No Alcohol Alcohol Intake: current Alcohol intake frequency: holidays/special occasions only Alcohol type: wine Substance Use Substance use: Never Substance use type: does not use Vital Signs and Lab Results Vital Signs Most Recent Vital Signs in EMR: Most Recent Vital Signs Temp Pulse Resp BP Pulse Ox 36.2 C L 73 14 160/44 H 97 04/18/25 06:30 04/18/25 06:30 04/18/25 06:30 04/18/25 06:30 04/18/25 06:30 Imaging and Studies Imaging and Studies Study information below may be from another EMR and interpreted by another provider. Please see original notes in EMR for more complete details. EKG Summary: 05/26/24 Conclusion Atrial fibrillation...? atrial activity Left anterior fascicular block...axis(240,-40), init forces inf Consider left ventricular hypertrophy...(R aVL+S V3) >2.20mV Conclusion Sinus rhythm...normal P axis, V-rate 50- 99 Left anterior fascicular block...axis(240,-40), 05/13/21 Echocardiogram Summary: Conclusion Normal left ventricular chamber size and wall thickness. EF is 60%. Wall motion is normal Normal right ventricular size and function Normal left atrial size. Right atrium is moderately enlarged There is a bioprosthetic aortic valve. Mean gradient is 25 mmHg. There is mild paravalvular regurgitation Normal mitral valve with mild regurgitation Normal tricuspid valve with mild to moderate regurgitation. Estimated right ventricular systolic pressure is 38 mmHg Ascending aorta measures 4.2 cm 06/27/24 Conclusion Normal left ventricular wall thickness and chamber size. Estimated ejection fraction is 60 to 65%. Wall motion is normal Normal right ventricular size and systolic function Both atria are moderately dilated There is a bioprosthetic aortic valve replacement there is mild to moderate aortic regurgitation. There is mild aortic stenosis. Mean gradient is 19 mmHg, calculated aortic valve area 1.23 cm?? Mild mitral annular calcification. Mild mitral regurgitation Normal tricuspid valve with moderate regurgitation. Estimated right ventricular systolic pressure is 31 mmHg Dilated ascending aorta measuring 4.36 cm 06/11/21 Anesthesia Assessment and Plan Anesthesia History Personal History: No History of Anesthesia Complications Family History: No Family History of Anesthesia Complications Exercise Tolerance Exercise Tolerance: Metabolic Equivalents>4 Cardiac & Pulmonary Exam Cardiac Exam: Normal S1/S2 Heart Sounds Pulmonary Exam: Clear Bilateral Breath Sounds Implantable Cardiac Device Does patient have a Pacemaker or an ICD?: No Airway Exam Known Difficult Airway: No Mallampati Class: 2 Mouth Opening: Normal (> 3cm) Thyromental Distance: Greater than 3 cm Neck Range of Motion: Limited ROM (Unable to tuen head to the right) Neck Circumference: Normal Teeth Condition: Normal Dentition ASA Classification ASA Score: ASA 3 Emergency Case?: No NPO Status NPO Status: NPO Clears >2 hours, Solids >8 hours Anesthesia Plan Resuscitation Status: Full Code Anesthesia Technique: MAC Anesthesia Airway Planned: Natural Airway Monitors Used: Standard Monitors
[2025-04-18 07:18] VITALS: BMI 22.7
[2025-04-18] MEDS: Lidocaine 1% Pres-Free 5 ML VIAL (07:38)
[2025-04-18] MEDS: Moxifloxacin-PF 1 MG/ML VIAL (07:38)
[2025-04-18] MEDS: Duovisc Viscoelastic System EACH 1 EACH (07:39)
[2025-04-18] MEDS: Phenylephrine/Lidocaine (15/10) MG/ML 1 ML VIAL (07:39)
[2025-04-18] MEDS: Balanced Salt Soln.-PLUS 500 ML BAG OP (07:40)
[2025-04-18] MEDS: Povidone-Iodine Ophth 30 ML BTL (07:40)
[2025-04-18] MEDS: Tetracaine 0.5% 4 ML BTL OS (07:41)
[2025-04-18] MEDS: Prednisolone 1%, Moxifloxacin 0.5%, Bromfenac 0.09% 5.6ML BTL OS (07:41)
--- NOTE | 2025-04-18 08:07 | W.PM.DSUDISC ---
Date of service: 04/18/25 Discharge Plan Disposition Patient Disposition: Home Discharge Details Attending Provider: Mitesh Roque Primary Care Provider: Americo Mills Home Meds and New Rx's Prescriptions: No Action carvedilol 6.25 mg tablet 6.25 mg PO BID Qty: 180 3RF Rx Instructions: must administer with a meal/food atorvastatin 40 mg tablet 40 mg PO DAILY Qty: 90 4RF latanoprost [Xalatan] 2.5 ML drops 1 drp OU QPM Qty: 1 Rx Instructions: 0.005% cholecalciferol (vitamin D3) 1,000 UNIT tablet 1,000 unit PO DAILY losartan-hydrochlorothiazide 100-12.5 mg tablet 1 tab PO DAILY Qty: 90 3RF brimonidine 0.2 % drops 1 drp ophthalmic (eye) BID Patient Comments: INSTILL ONE DROP IN EACH EYE TWO TIMES A DAY aspirin [Children's Aspirin] 81 mg Tablet,Chewable 81 mg PO DAILY Qty: 0 0RF Discharge Instructions Stand Alone Forms: [facility] Post-Op Cataract, Pranay Whipple ([facility]), Portal Information Discharge Orders Discharge Orders: Discharge Order (Routine); Ordered 04/18/25 Ordered By: Mitesh Roque DS: Diagnosis Discharge Diagnosis (1) Posterior subcapsular age-related cataract of left eye: Status: Resolved (2) Nuclear age-related cataract, left eye: Status: Resolved (3) Primary open-angle glaucoma, left eye, moderate stage: Status: Chronic
--- NOTE | 2025-04-18 08:09 | ROE_ITS ---
Operative Note Operative Note PRE-OP DIAGNOSIS: Nuclear/posterior subcapsular cataract, left eye Primary open-angle glaucoma, left eye, moderate stage POST-OP DIAGNOSIS: same PROCEDURE: Cataract extraction using phacoemulsification with intraocular lens implant, l eft eye Implantation of mulitple trabecular micro-bypass stents, left eye SURGEON: Mitesh Roque ANESTHESIA TYPE: Local By Surgeon and MAC Refer to Anesthesia Record PATHOLOGY: none sent COMPLICATIONS: None Patient was transported to: same day Patient's condition: stable Implants: Ignacio Clareon [id number] [employer] iStents Indications: Progressive decreased vision due to cataract, left eye Primary open angle glaucoma, left eye, moderate stage Procedure Description: CATARACT SURGERY OPERATIVE REPORT PREOPERATIVE DIAGNOSIS: Nuclear/posterior subcapsular cataract, left eye Primary open-angle glaucoma, left eye, moderate stage POSTOPERATIVE DIAGNOSIS: Same OPERATION: 1. Cataract extraction using phacoemulsification with posterior chamber intraocular lens implant, left eye. 2. Insertion of multiple anterior segment aqueous drainage devices ([employer] iStent) into trabecular meshwork, left eye IOL: IOL [facility]/Model: Ignacio Clareon [id number] IOL Power: + 19.0 diopters IOL Serial Number: [id number] Optic Diameter: 6.0mm Haptic/Overall Diameter: 13.0mm PHACO INFO: Ignacio [employer] Vision System with OZil and Active Fluidics Cumulative Dispersed Energy (CDE): 10.49 seconds TRABECULAR MICRO-BYPASS STENT INFO: [employer] iStent x 3 Reference Number: iS3 Serial Number: [id number] SURGEON: Mitesh Roque MD, ARJUN ANESTHESIA: Monitored Anesthesia Care (MAC), with local sub-tenon's anesthetic infiltration COMPLICATIONS: None SPECIMENS: None INDICATIONS FOR PROCEDURE: The patient is a 89-year-old lady with history of diminished visual acuity in both eyes secondary to the development of bilateral nuclear/posterior subcapsular cataract. She is significantly symptomatic that she desires cataract surgery and attempt to improve and maximize her vision. She has already gone cataract surgery in the right eye and is doing well postoperatively. In addition, she has moderate stage open-angle glaucoma, currently on 2 topical medications. The option of minimally invasive glaucoma surgery at the time of cataract surgery was offered to the patient and she wished to proceed with this as well. See office notes for detailed information. PROCEDURE: The correct surgical eye was identified and marked as the left eye and the pupil was dilated in the preoperative area using mydriatics and cycloplegics. The dilated pupil size was 5.0 mm. Oral sedation was administered in the form of an Imprimis MKO Melt (midazolam 3mg/ketamine 25mg/ondansetron 2mg). The patient was brought to the operating room where cardiopulmonary monitoring was instituted and surgical time-out was performed, confirming the correct operative eye and IOL power. Topical anesthesia was administered and ophthalmic povidone-iodine 5% was instilled into the conjunctival fornices. The armando-ocular area was prepped with Betadine 10% solution and draped in the usual sterile fashion for intraocular surgery, including an aperture drape. A Tegaderm transparent film dressing was cut in half and used to cover the lashes and lid margins. Care was taken to sequester the lashes and lid margins under the Tegaderm dressing. A lid speculum was placed between the lids of the operative eye and the Ignacio [employer] Rev[employer] operating microscope was maneuvered into position. Danielle scissors were then used to make a conjunctival buttonhole approximately 6mm posterior to the limbus in the inferonasal quadrant. Blunt dissection was carried out to expose bare sclera, and a blunt-tipped sub-tenon’s anesthesia cannula was introduced and passed posteriorly along the globe where non- preserved plain lidocaine was injected into posterior sub-Tenon’s space. A sideport knife was used to make a paracentesis port superiorly/superiortemporally. Intraocular phenylephrine/lidocaine was injected into the anterior chamber. The anterior chamber was then filled with viscoelastic. A keratome knife was used to construct a clear corneal tunnel extending 2.0mm into clear cornea. . A flap was raised on the anterior capsule and capsulorhexis forceps were used to complete a continuous curvilinear capsulorhexis of 5.0 mm. Balanced salt solution was then used to perform cortical cleaving hydrodissection and nuclear hydrodelineation until the lens could be freely rotated within the capsular bag. The lens nucleus was then disassembled and removed within the capsular bag and iris plane using phacoemulsification. Residual cortical material was removed using the 45-degree angled silicone I/A tip with 0.3mm port. The posterior capsule was carefully polished to remove as much residual lens epithelial cells as safely possible. The capsular bag was then inflated and the anterior chamber deepened with viscoelastic. The lens implant described above was inserted into the capsular bag using the Ignacio Autonome pre-loaded injector. A Kuglen hook was used to dial the IOL into position. The anterior chamber was then slightly over-filled with viscoelastic. The microsope and the patient's head were tilted into the ideal position for viewing of the anterior chamber angle. Viscoelastic was placed on the cornea followed by a surgical gonionlens, and the anterior chamber angle landmarks were identified. The [facility] iStent injection handpiece was introduced into the anterior chamber and the insertion sleeve was retracted. The trocar was advanced through the central portion of the trabecular meshwork and into the back wall of Schlemm's canal in the nasal quadrant, with care taken to ensure the micro- insertion tube was perpendicular to the trabecular meshwork. The trabecular meshwork was lightly dimpled and the stent was injected without difficulty. The same procedure was then performed in the inferiornasal quradrant. A third stent was then injected into the superiornasal quadrant. The stents were then examined and noted to be in good position within the trabecular meshwork. A mild amount of blood refluxed through the stent apertures was noted through the inferior nasal and nasal stents. The microscope and the patients head were returned to the normal coaxial position. Viscoelatic was then removed from the anterior chamber using the I/A handpiece. Blanching of the deep conjunctival vessels was noted nasally during removal of viscoelastic. The lens implant was noted to center nicely within the capsular bag. The incisions were stromally hydrated, and the anterior chamber was reformed using BSS. Then 0.5cc of moxifloxacin 1.0mg/ml were injected into the capsular bag and anterior chamber. The incisions were checked with a Weck spear and found to be secure. Several drops of ophthalmic povidone-iodine 5% were then applied to the eye followed by two drops of Imprimis combination prednisolone/moxifloxacin/nepafenac solution. The drapes were removed and a clear plastic protective eye shield was placed over the eye. The patient was then returned to Same Day Surgery in stable condition.. Date of Procedure: 04/18/25
[2025-04-18 08:11] VITALS: BP 136/45; PULSE 58; RESP 14; TEMP 36.2; O2SAT 98
[2025-04-18 08:25] VITALS: BP 151/43; PULSE 60; RESP 14; TEMP 36.6; O2SAT 96
--- NOTE | 2025-04-18 08:33 | W.ANESPOSTOP ---
Postoperative Evaluation Date, Time and Location Date Performed: 04/18/25 Time Performed: 08:23 Patient Location: Day Surgery Unit Vital Signs Most Recent Imported Vital Signs: Most Recent Vital Signs Temp Pulse Resp BP Pulse Ox 36.6 C 60 14 136/45 L 96 04/18/25 08:25 04/18/25 08:25 04/18/25 08:25 04/18/25 08:11 04/18/25 08:25 Pain Score Most Recent Pain Score: Most Recent Pain Score Pain Level 0 04/18/25 08:25 Assessment Mental Status: Awake (Alert & Oriented to Patient Baseline) Airway and Respiratory Function: Patent airway with normal (patient baseline) respiratory exam Cardiovascular Function: Hemodynamically Stable Hydration Status: Adequately Hydrated Nausea & Vomiting: No Nausea or Vomiting Pain: Pt. Denies Any Pain Peripheral Nerve Block: Patient did not receive a nerve block
== END 2025-04-18 08:29 | disposition home or self-care (01) ==
PROVIDERS: PCP Family Medicine; Visit Provider Ophthalmology
PROC: (CPT 66991; principal; 2025-04-18 07:30)
DX: H25.042 Posterior subcapsular polar age-related cataract, left eye (principal); H25.12 Age-related nuclear cataract, left eye; H40.1122 Primary open-angle glaucoma, left eye, moderate stage
CPT/HCPCS: 66991; 00123; V2632; J2003